=== PATIENT | female | born 1940 | race Caucasian/White ===

== ENCOUNTER → 2019-09-15 | Outpatient (CLI) | payer SELFPAY | PROVIDERS: Family Provider Family Medicine; Visit Provider Family Medicine | DX: M81.0 Age-related osteoporosis without current pathological fracture (principal) | CPT/HCPCS: 77080 ==

== ENCOUNTER 2019-10-23 17:28 | Outpatient (CLI) | payer OTHER, MEDICARE, SELFPAY ==
--- NOTE | 2019-10-23 | XR_ITS ---
WS: [id number] Right ankle, 3 views, 10/23/2019 Clinical Data: ANKLE PAIN RIGHT Comparison: None. Findings: There is an oblique fracture of the distal right fibula. The distal tibia and medial malleolus are in tact. There is soft tissue swelling over the lateral malleolar fracture. There is a small plantar spur and Achilles spur. XR/XR ankle RT min 3V* [id number] Impression: Oblique fracture of distal right fibula with soft tissue swelling over fracture .
== END 2019-10-23 17:29 | disposition home or self-care (01) ==
LOC: RADOUTREAD 10-24 11:46
PROVIDERS: Family Provider Family Medicine; Visit Provider Family Medicine
DX: Z76.89 Persons encountering health services in other specified circumstances (principal)

== ENCOUNTER → 2019-10-29 09:47 | Outpatient (BNVA) | payer MEDICARE, OTHER, SELFPAY | PROVIDERS: Family Provider Family Medicine; Referring Provider Nurse Practitioner Family; Visit Provider Podiatrist Foot & Ankle Surgery | DX: S82.831A Other fracture of upper and lower end of right fibula, initial encounter for closed fracture (principal); X58.XXXA Exposure to other specified factors, initial encounter | CPT/HCPCS: 73630 ==

== ENCOUNTER → 2019-11-12 10:50 | Outpatient (BNVA) | payer MEDICARE, OTHER, SELFPAY | PROVIDERS: Family Provider Family Medicine; Visit Provider Podiatrist Foot & Ankle Surgery | DX: S82.831A Other fracture of upper and lower end of right fibula, initial encounter for closed fracture (principal); X58.XXXA Exposure to other specified factors, initial encounter; S82.891D Other fracture of right lower leg, subsequent encounter for closed fracture with routine healing; X58.XXXD Exposure to other specified factors, subsequent encounter | CPT/HCPCS: 73610; L4361 ==

== ENCOUNTER 2019-11-12 13:40 | Outpatient (CLI) | payer MEDICARE, OTHER, SELFPAY | END 2019-11-12 13:41 | disposition home or self-care (01) | LOC: SPT 13:42 | PROVIDERS: Family Provider Family Medicine; Visit Provider Podiatrist Foot & Ankle Surgery | DX: S82.891D Other fracture of right lower leg, subsequent encounter for closed fracture with routine healing (principal); X58.XXXD Exposure to other specified factors, subsequent encounter | CPT/HCPCS: L4361 ==

== ENCOUNTER 2019-12-03 08:02 | Outpatient (CLI) | payer MEDICARE, OTHER, SELFPAY ==
--- NOTE | 2019-12-03 08:10 | XR_ITS ---
WS: [id number] XR ankle RT min 3V* [id number] REASON FOR EXAM: ankle fracture FINDINGS: Osteopenia changes throughout the ankle are seen. A spiral comminuted fracture of the fibula seen. The tibia appears to be normal. The posterior shelf the tibia was normal. XR/XR ankle RT min 3V* [id number] IMPRESSION: Spiral comminuted fracture of the distal fibula.
== END 2019-12-03 08:03 | disposition home or self-care (01) ==
PROVIDERS: Family Provider Family Medicine; PCP Family Medicine; Visit Provider Podiatrist Foot & Ankle Surgery
DX: S82.831A Other fracture of upper and lower end of right fibula, initial encounter for closed fracture (principal); X58.XXXA Exposure to other specified factors, initial encounter
CPT/HCPCS: 73610

== ENCOUNTER 2019-12-17 12:40 | Outpatient (CLI) | payer MEDICARE, OTHER, SELFPAY ==
--- NOTE | 2019-12-17 12:45 | XR_ITS ---
WS: [id number] ANKLE RIGHT TECHNIQUE: 3 views of the right ankle CLINICAL INFORMATION: fracture COMPARISON: December 03, 2019 FINDINGS: Osteopenia. Soft tissue edema lower leg and ankle. Nondisplaced slightly comminuted fracture involvin g the distal fibula. Slight interval callus formation since the prior examination. Ankle mortise is r elatively well-preserved. Vascular calcification. Tiny plantar and Achilles calcaneal spurs/enthesophytes. XR/XR ankle RT min 3V* [id number] IMPRESSION: 1. Nondisplaced spiral fracture involving the distal fibula with evidence of s light interval callus formation. 2. Ankle mortise is relatively well-preserved.
== END 2019-12-17 12:41 | disposition home or self-care (01) ==
LOC: RADWPI 12:44
PROVIDERS: Family Provider Family Medicine; PCP Family Medicine; Visit Provider Podiatrist Foot & Ankle Surgery
DX: S82.831A Other fracture of upper and lower end of right fibula, initial encounter for closed fracture (principal); X58.XXXA Exposure to other specified factors, initial encounter
CPT/HCPCS: 73610

== ENCOUNTER 2020-02-06 15:20 | Outpatient (CLI) | payer MEDICARE, OTHER, SELFPAY ==
--- NOTE | 2020-02-06 15:26 | XR_ITS ---
WS: [id number] RIGHT ANKLE: 3 VIEW(S) TECHNIQUE: AP, oblique(s) and lateral. HISTORY: right ankle fracture COMPARISON: 12/17/2019 Healing oblique fracture through the distal fibula. No new fracture. No joint effusion or widening of the ankle mortise. No significant degenerative changes at the joint spaces. Diffuse osteopenia with mild soft tissue edema laterally. Extensive vascular calcifications. XR/XR ankle RT min 3V* [id number] IMPRESSION: 1. Healed distal fibular oblique fracture. 2. Soft tissue edema laterally has increased.
== END 2020-02-06 15:21 | disposition home or self-care (01) ==
LOC: RADWPI 15:21
PROVIDERS: Family Provider Family Medicine; PCP Family Medicine; Visit Provider Podiatrist Foot & Ankle Surgery
DX: S82.831A Other fracture of upper and lower end of right fibula, initial encounter for closed fracture (principal); X58.XXXA Exposure to other specified factors, initial encounter
CPT/HCPCS: 73610

== ENCOUNTER 2020-05-15 13:33 | Emergency (ER) | payer MEDICARE, OTHER, SELFPAY ==
[2020-05-15 14:01] VITALS: BP 145/83; PULSE 70; RESP 16; TEMP 36.7; O2SAT 97; BMI 41.1
--- NOTE | 2020-05-15 14:17 | CTR_ITS ---
PROCEDURE INFORMATION: Exam: CT Abdomen And Pelvis Without Contrast Exam date and time: 05/15/2020 2:37 PM Age: 79 years old Clinical indication: Abdominal pain; Other: Bilat; Prior surgery; Surgery date: 6+ months; Surgery type: Appy, gb, hyst; Patient HX: C/O b flank/lbp x 1 week; Additional info: Flank/abdominal pain TECHNIQUE: Imaging protocol: Computed tomography of the abdomen and pelvis without contrast. Radiation optimization: All CT scans at this facility use at least one of these dose optimization techniques: automated exposure control; mA and/or kV adjustment per patient size (includes targeted exams where dose is matched to clinical indication); or iterative reconstruction. COMPARISON: CR Hip 1v RIGHT wwo Pelvis [id number] 04/08/2017 3:42 PM RADIATION DOSE METRICS: Total DLP (mGy-cm): 1816.19 FINDINGS: Lungs: There is bronchiectasis with peribronchial thickening and patchy mucous plugging in the lower lobes. There is scarring with traction bronchiectasis in the right lower lobe. There is patchy opacity in the lower lobes that reflect some pneumonitis in the lung bases right greater than left. Heart: The heart is enlarged. Liver: Unremarkable.No mass. Gallbladder and bile ducts: There has been a cholecystectomy. There is no common bile duct dilation. Pancreas: Normal. No ductal dilation. Spleen: Normal. No splenomegaly. Adrenals: Normal. No mass. Kidneys and ureters: There is punctate nephrolithiasis versus renal vascular calcifications. There is no evidence of hydronephrosis. Stomach and bowel: Mild diverticulosis is present in the distal colon. There is no evidence of colitis/diverticulitis. There is no evidence of colitis/diverticulitis. Appendix: The appendix is not definitively identified. However, there is no CT evidence of a right lower quadrant inflammatory process. Intraperitoneal space: Unremarkable. No free air. No significant fluid collection. Vasculature: The aorta demonstrates mild atherosclerotic calcification. Lymph nodes: Unremarkable.No enlarged lymph nodes. Bladder: The bladder is normal. Reproductive: Unremarkable as visualized. There has been a hysterectomy. Bones/joints: There is diffuse osteopenia with severe degenerative is. Chronic appearing compression fractures T12, L1, L2, L3 and L4 are noted. No acute fracture is identified Soft tissues: Unremarkable. Other findings: There is severe COPD. CT/CT kidney stone [id number] IMPRESSION: 1. There is patchy opacity in the lower lobes that reflect some pneumonitis in the lung bases right greater than left. Severe COPD, bronchiectasis with mucous plugging in basilar scarring is also noted. 2. There is no acute abnormality in abdomen or pelvis. There is diverticulosis without diverticulitis. No bowel thickening or inflammatory change. No hydronephrosis. 3. Osteopenia and multiple chronic compression fractures in the spine are noted. No acute bony abnormality. Radiation Dose CTDIVOL = (mGy): DLP = 1816.19 (mGy-cm)
--- NOTE | 2020-05-15 14:25 | ED_ITS ---
HPI - Back Pain/Injury General: Chief Complaint: Urogenital-Female Stated Complaint: bilateral flank pain/known UTI Dx Time Seen by Provider: 05/15/20 14:09 Source: patient Mode of arrival: ambulatory Limitations: no limitations History of Present Illness: HPI Narrative: Mrs. Middleton is an 79-year-old female who comes in complaining of a week's worth history of low back pain. The patient was seen at [facility] approximately 2 to 3 days ago and was evaluated and diagnosed with UTI. She was placed on Macrobid and Pyridium. The patient states that she is not any better. She continues to have low back and flank pain. Patient states when she moves it makes her symptoms worse and nothing seems to make them better. She denies any fevers, chills, nausea, vomiting or upper abdominal pain. His most of her pain is in the lateral parts of her abdomen and low back. Patient denies any chest pain or shortness of breath but it has caused her to feel nauseated. She unaware of any injuries to her back or flanks. She denies any radiation down her legs. She is not had any loss of bowel or bladder control, numbness in her groin or radiation of her pain down her legs. Patient denies having anything similar to this in the past. She is not tried anything for this other than the Pyridium that was prescribed to her by [facility] and she states that has not helped. She states any type of movement makes her back and flank pain worse. Associated symptoms: Deny abdominal pain, chills, difficulty walking, dysuria, fatigue, fever(s), hematuria, nausea, syncope, urinary urgency or vomiting Review of Systems Const: Denies: fever(s), chills, body aches, fatigue, malaise or diaphoresis Eyes: Denies: change in vision, blurry vision, photophobia, eye discomfort, eye discharge or eye redness ENMT: Denies: throat pain, odynophagia, hoarseness, swelling of lips/tongue, ear or mastoid pain, ear discharge, change in hearing or nasal discharge Card: Denies: chest pain, palpitations, irregular heart rhythm, edema, lightheadedness, syncope, pre-syncope, dyspnea on exertion or orthopnea Resp: Denies: dyspnea, productive cough, non-productive cough, wheezing, hemoptysis or chest congestion GI: Denies: abdominal pain, nausea, vomiting, hematemesis, coffee ground emesis, heartburn, diarrhea, constipation, GI cramping, hematochezia or melena : Reports: flank pain; Denies: dysuria, urinary frequency, urinary urgency or hematuria Musc: Reports: back pain; Denies: neck pain, extremity pain, extremity swelling, joint pain, joint swelling, joint redness, joint warmth or joint stiffness Skin/Breast: Denies: rash, pruritus, erythema or skin tenderness Neuro: Denies: headache(s), numbness in extremities, weakness in extremities, sensory changes, lack of coordination, difficulty walking, dizziness, vertigo, confusion, Slurred speech present or seizure-like activity Ronnie/Lymph: Denies: easy bruising, easy bleeding, petechiae, purpura or enlarged lymph nodes All/Imm: Denies: urticaria, throat swelling, tongue swelling, facial swelling or acute wheezing PFSH ED PFSH: Medical History Depression H/O dysat-[id number] deficiency Hypertension Right fibular fracture Surgical History History of back surgery Hx of appendectomy Hx of arthroscopy of right knee Hx of cataract extraction Hx of cholecystectomy Hx of hysterectomy Hx of tubal ligation Family History Mother Hypertension Brother Hypertension Denies family history of Diabetes CAD (coronary artery disease) Clotting disorder Dementia Hyperlipidemia Psychiatric illness Chronic kidney disease (CKD) Suicide Anesthesia complication Bleeding disorder Family history of premature coronary artery disease Lung disease Cancer Stroke Social History Smoking and tobacco status: never smoked Alcohol intake: never Substance/Drug Use: never Physical Exam Const: COMMON NORMALS: no acute distress, patient oriented x3, no limitations, healthy appearing and well nourished GENERAL APPEARANCE: cooperative, well kempt and well developed HENMT: COMMON NORMALS: normocephalic, atraumatic, external ears normal, EAC's normal and Normal external nose present HEAD & SCALP: normal to inspection, normocephalic and atraumatic FACE & SINUS: normal facial exam and face symmetric NOSE: Normal external nose present and Normal nares present EXTERNAL EAR: Yes external ears normal EXTERNAL AUDITORY CANAL: EAC's normal MOUTH: Normal oral and palatal mucosa present, lip normal and tongue normal Eye: COMMON NORMALS: Equal, round and reactive pupils present and conjunctivae normal GENERAL EYE: appearance normal, both eyes and all related structures ALIGNMENT: Yes alignment normal PERIORBITAL: periorbital findings normal EYELID: eyelids normal CONJUNCTIVA: Yes conjunctivae normal SCLERA: sclerae normal PUPIL: Yes Equal, round and reactive pupils present Neck/C-Spine: COMMON NORMALS: full ROM, no lymphadenopathy, supple, no meningeal signs and no JVD GENERAL: Yes normal visual inspection and Yes trachea midline Chest: COMMONS NORMALS: normal inspection of the chest and normal palpation of entire chest wall Resp: COMMON NORMALS: normal respiratory effort, No retractions, No use of accessory muscles and clear to auscultation bilaterally EFFORT & INSPECTION: Yes able to speak in complete sentences and Yes symmetric chest movement AUSCULTATION: clear to auscultation bilaterally, no crackles, no rales, no rhonchi and no wheezes Cardio: COMMON NORMALS: no JVD, regular rate, regular rhythm, S1 normal heart sound present and S2 normal heart sound present RATE: regular rate RHYTHM: regular rhythm HEART SOUNDS: S1 normal heart sound present, S2 normal heart sound present, no click, no gallops, no murmurs, no rubs and abnormal split S2 GI: COMMON NORMALS: Soft to palpation and No hepatosplenomegaly present PALPATION: Yes Soft to palpation, No Tenderness to palpation present (GI), No Guarding due to palpation present (GI), No Rigid due to palpation, Yes No hepatosplenomegaly present, No Hernia present, No Palpable mass present and No Pulsatile mass present : EXTERNAL FEMALE EXAM: No Hernia present Back/Pelvis: OTHER: Pain on palpation over lumbosacral junction. Minimal if any CVA tenderness present. No midline spinal tenderness. Extremity: COMMON NORMALS: normal to inspection, full ROM, capillary refill normal, no joint enlargement, no clubbing, cyanosis or edema and no calf tenderness Neuro: COMMON NORMALS: patient oriented x3, CN's II-XII intact bilaterally, moves all extremities, no focal motor deficits and no sensory deficits noted MENINGEAL SIGNS: Yes no meningeal signs SPEECH: speech normal Psych: COMMON NORMALS: mental status grossly normal, Normal thought process present, cooperative, normal affect, speech normal and activity/motor behavior normal APPEARANCE: Yes well kempt SPEECH: Yes normal speech THOUGHT PROCESS: Normal thought process present Skin: COMMON NORMALS: no rashes or lesions noted, turgor normal, no jaundice, no petechiae and no mottling GENERAL SKIN EXAM: no rashes or lesions noted and turgor normal Course Vital Signs: Vital signs: Vital Signs Temperature 98.1 F 05/15/20 14:01 Pulse Rate 73 05/15/20 16:30 Respiratory Rate 18 05/15/20 16:30 Blood Pressure 159/81 05/15/20 16:30 Pulse Oximetry 99 05/15/20 16:30 MDM - Back Pain/Injury MDM Narrative: Medical decision making narrative: Mrs. Middleton is a very nice 79-year-old female who comes in complaining low back pain. Low back pain is made worse by movement but she is also recently been diagnosed with a UTI. The patient's urinalysis still shows signs of infection. There is no evidence of acute compression fracture or renal stone or pyelonephritis on her CT. Patient does not appear septic and she is not vomiting. Her abdomen is negative to palpation. The differential for her pain is considerable kidney musculoskeletal pain, renal colic, UTI, pyelonephritis, intra-abdominal pathology among many others. Based upon the work-up that I performed today I think she has a component of musculoskeletal pain along with a UTI. I am going to change her antibiotics to Omnicef and Zithromax. This will also cover for any lung pathology that was discovered by CT. The patient has chronic alpha-1 antitrypsin deficiency so I believe the findings in her lungs are chronic. She denies a cough, increased shortness of breath or fever. Patient understands she is welcome to return here if her symptoms worsen but at this time she is ready for discharge. Lab Data: Attestation: I reviewed the patient's lab results. Labs: Lab Results 05/15/20 05/15/20 05/15/20 Range/Units 14:25 14:40 14:40 WBC 11.3 H (4.0-10.0) 10^3/ uL RBC 4.81 (4.1-5.3) 10^6/u L Hgb 13.9 (11.5-15.3) g/dL Hct 45.0 (37.0-47.0) % MCV 93.6 (81-99) fL MCH 28.9 (28.0-34.0) pg MCHC 30.9 (30.0-36.0) g/dL RDW 13.5 (12.1-15.1) % Plt Count 249 (130-400) 10^3/c mm MPV 9.5 (7.4-10.4) fL Neut % (Auto) 74.2 % Lymph % (Auto) 20.6 % Duval % (Auto) 4.3 % Eos % (Auto) 0.0 % Baso % (Auto) 0.5 % Neut # (Auto) 8.35 H (1.8-7.7) 10^3/u L Lymph # (Auto) 2.3 (0.8-4.8) 10^3/u L Duval # (Auto) 0.5 (0.2-0.9) 10^3/u L Eos # (Auto) 0.0 (0.0-0.8) 10^3/u L Baso # (Auto) 0.1 (0.0-0.1) 10^3/u L Nucleated RBC % (a uto) 0 % Nucleated RBCs # 0.0 /100WBC Sodium 137 (136-145) mmol/L Potassium 4.5 (3.5-5.1) mmol/L Chloride 97 L (98-107) mmol/L Carbon Dioxide 37 H (22-29) mmol/L Anion Gap 7.5 (5-19) BUN 9 (8-23) mg/dL Creatinine 0.8 (0.5-0.9) mg/dL GFR Calculation Not Reportable Glucose 126 H (65-115) mg/dL Calculated Osmolal ity 282 L (285-295) mOsm/k g Calcium 9.6 (8.5-10.5) mg/dL Magnesium 2.1 (1.7-2.3) mg/dL Total Bilirubin 0.3 (0.15-1.2) mg/dL AST 26 (0-32) U/L ALT 25 (0-33) U/L Alkaline Phosphata se 106 H (35-105) IU/L Total Protein 8.0 (6.6-8.7) g/dL Albumin 4.1 (3.5-5.2) g/dL Globulin 3.9 (1.3-4.6) g/dL Lipase 44 (13-60) U/L Urine Color Dark yellow (Yellow) Urine Appearance Clear (CLEAR) Urine pH 8 H (5-7) Ur Specific Gravit y 1.015 (1.005-1.030) Urine Protein 2+ H (Negative) Urine Glucose (UA) Norm (Normal) Urine Ketones Negative (Negative) Urine Blood Neg (Negative) Urine Nitrate Positive H (Negative) Urine Bilirubin Neg (NEGATIVE) Prot Sulfosalicyli c Acd Positive (Negative) Urine Urobilinogen 8 H (Negative) mg/dL Ur Leukocyte Sheridan ase 1+ H (Negative) Urine RBC None (0-2) /hpf Urine WBC 0-4 H (0-5) /hpf Ur Squamous Epith Cells 0-4 H (0-5) Amorphous Sediment 1+ Urine Bacteria 1+ H (NONE) Hyaline Casts 0-4 H Coarse Granular Ca sts 0-4 H /lpf Urine Mucus 1+ Imaging Data^: CT Abd/Pel: Radiologist's impression: [place] [address] CT Scan Report Signed Patient: Blank Middleton Unit #: [id number] : 1940 Age/Sex: 79 / F ADM Date: 05/15/20 Loc: ER Room/Bed: Attending Dr: Ordering Provider/Ordering MD: Jo Knight DO Date of Service: 05/15/20 Procedure(s): CT kidney stone 18238 Accession Number(s): [id number] Report Number: [id number] PROCEDURE INFORMATION: Exam: CT Abdomen And Pelvis Without Contrast Exam date and time: 05/15/2020 2:37 PM Age: 79 years old Clinical indication: Abdominal pain; Other: Bilat; Prior surgery; Surgery date: 6+ months; Surgery type: Appy, gb, hyst; Patient HX: C/O b flank/lbp x 1 week; Additional info: Flank/abdominal pain TECHNIQUE: Imaging protocol: Computed tomography of the abdomen and pelvis without contrast. Radiation optimization: All CT scans at this facility use at least one of these dose optimization techniques: automated exposure control; mA and/or kV adjustment per patient size (includes targeted exams where dose is matched to clinical indication); or iterative reconstruction. COMPARISON: CR Hip 1v RIGHT wwo Pelvis [id number] 04/08/2017 3:42 PM RADIATION DOSE METRICS: Total DLP (mGy-cm): 1816.19 FINDINGS: Lungs: There is bronchiectasis with peribronchial thickening and patchy mucous plugging in the lower lobes. There is scarring with traction bronchiectasis in the right lower lobe. There is patchy opacity in the lower lobes that reflect some pneumonitis in the lung bases right greater than left. Heart: The heart is enlarged. Liver: Unremarkable.No mass. Gallbladder and bile ducts: There has been a cholecystectomy. There is no common bile duct dilation. Pancreas: Normal. No ductal dilation. Spleen: Normal. No splenomegaly. Adrenals: Normal. No mass. Kidneys and ureters: There is punctate nephrolithiasis versus renal vascular calcifications. There is no evidence of hydronephrosis. Stomach and bowel: Mild diverticulosis is present in the distal colon. There is no evidence of colitis/diverticulitis. There is no evidence of colitis/diverticulitis. Appendix: The appendix is not definitively identified. However, there is no CT evidence of a right lower quadrant inflammatory process. Intraperitoneal space: Unremarkable. No free air. No significant fluid collection. Vasculature: The aorta demonstrates mild atherosclerotic calcification. Lymph nodes: Unremarkable.No enlarged lymph nodes. Bladder: The bladder is normal. Reproductive: Unremarkable as visualized. There has been a hysterectomy. Bones/joints: There is diffuse osteopenia with severe degenerative is. Chronic appearing compression fractures T12, L1, L2, L3 and L4 are noted. No acute fracture is identified Soft tissues: Unremarkable. Other findings: There is severe COPD. CT/CT kidney stone [id number] IMPRESSION: 1. There is patchy opacity in the lower lobes that reflect some pneumonitis in the lung bases right greater than left. Severe COPD, bronchiectasis with mucous plugging in basilar scarring is also noted. 2. There is no acute abnormality in abdomen or pelvis. There is diverticulosis without diverticulitis. No bowel thickening or inflammatory change. No hydronephrosis. 3. Osteopenia and multiple chronic compression fractures in the spine are noted. No acute bony abnormality. Radiation Dose CTDIVOL = (mGy): DLP = 1816.19 (mGy-cm) Dictated By: Claudia Maddox Signed By: Claudia Maddox Signed Date/Time: 05/15/201528 DD/ 27 Discharge Plan Discharge Patient Disposition: Home Clinical Impression: Acute UTI Back pain Qualifiers: Back pain location: low back pain Chronicity: acute Back pain laterality: bilateral Sciatica presence: without sciatica Qualified Code(s): M54.5 - Low back pain Condition: Stable Prescriptions: New cyclobenzaprine 10 mg tablet 5 mg PO TID PRN (Reason: muscle spasm) Qty: 30 RF: 0 Zithromax Z-Declan 250 mg tablet See Rx Instructions .ROUTE .COMPLEX Qty: 6 RF: 0 [place] 5-325 mg tablet 1 tab PO Q6H PRN (Reason: pain) 5 Days Qty: 12 RF: 0 cefdinir 300 mg capsule 300 mg PO Q12H 10 Days Qty: 20 RF: 0 No Action benazepril 20 mg PO DAILY RF: 0 prednisone 5 mg tablet 5 mg PO DAILY RF: 0 citalopram [Celexa] 40 mg tablet 20 mg PO DAILY RF: 0 alendronate 70 mg tablet 70 mg PO Q7D RF: 0 oxycodone-acetaminophen 10-325 mg tablet 1 tab PO QID PRN (Reason: Pain) RF: 0 trazodone 100 mg tablet 100 mg PO BEDTIME RF: 0 amlodipine 10 mg tablet 10 mg PO DAILY RF: 0 metoprolol tartrate 50 mg tablet 50 mg PO DAILY RF: 0 Aralast [employer]CH[employer]ICIAN 1,000 mg recon soln See Rx Instructions .ROUTE .COMPLEX RF: 0 nitrofurantoin monohyd/m-cryst 100 mg capsule 100 mg PO BID RF: 0 Discharge Orders: Discharge Order (Routine); Ordered 05/15/20 Ordered By: Jo Knight Referrals: Isaac Rebolledo MD [Primary Care Provider] - 1-3 days Discharge Diet: Advance as tolerated Discharge Activity: Increase activity as tolerated Patient Instructions: Urinary Tract Infection in Women (ED), Back Pain (ED) Activity Restrictions/Additional Instructions: Please return to the ER immediately for any of the signs or symptoms listed on your discharge instruction sheets, worsening/changing of your symptoms, you are not getting better as quickly as expected, or for ANY other cause or concerns. If your symptoms change or worsen at all please return to the ER immediately for recheck. Return to the ER specifically for fever, abdominal pain, blood in your urine, vomiting, weakness, or for any other cause for concern. 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
[2020-05-15 14:36] VITALS: RESP 18
[2020-05-15 14:44] VITALS: RESP 20
[2020-05-15] MEDS: ondansetron 2 mg/ML SDV 2 mL 4 MG IVP (14:44)
[2020-05-15] MEDS: sodium chloride 0.9% 1,000 ML 100 ML IV (14:44)
[2020-05-15] MEDS: morphine 4 mg/mL SDV 1 mL IVP (14:44)
[2020-05-15 14:46] VITALS: O2SAT 95
[2020-05-15 15:04] LABS: Basophils # 0.1 10^3/uL (0.0-0.1); Basophils % 0.5 %; Hemoglobin 13.9 g/dL (11.5-15.3); Lymphocytes # 2.3 10^3/uL (0.8-4.8); Lymphocytes % 20.6 %; Mean Corpuscular HGB Conc 30.9 g/dL (30.0-36.0); Mean Corpuscular Hemoglobin 28.9 pg (28.0-34.0); Mean Corpuscular Volume 93.6 fL (81-99); Mean Platelet Volume 9.5 fL (7.4-10.4); Monocytes # 0.5 10^3/uL (0.2-0.9); Monocytes % 4.3 %; Neutrophils # 8.35 10^3/uL (1.8-7.7); Neutrophils % 74.2 %; Nucleated Red Blood Cells % 0 %; Platelet Count 249 10^3/cmm (130-400); Red Blood Count 4.81 10^6/uL (4.1-5.3); Red Cell Distribution Width 13.5 % (12.1-15.1); White Blood Count 11.3 10^3/uL (4.0-10.0)
[2020-05-15 15:21] LABS: Specific Gravity, Urine 1.015 (1.005-1.030); Urine Appearance Clear (CLEAR); Urine Color Dark Yellow (Yellow); pH Urine 8 (5-7)
[2020-05-15 15:22] LABS: Amorphous Sediment Urine 1+; Bacteria Urine 1+; Bilirubin Urine Neg (NEGATIVE); Blood Urine Neg (Negative); Coarse Granular Casts Urine 0-4 /lpf; Glucose Urine UA Norm (Normal); Hyaline Casts Urine 0-4; Ketones Urine Negative (Negative); Leukocyte Esterase Urine 1+ (Negative); Mucus Urine 1+; Nitrate Urine Positive (Negative); Protein Urine 2+ (Negative); Squamous Epithelial Cell Urine 0-4 (0-5); Urobilinogen Urine 8 mg/dL (Negative); WBC Urine 0-4 /hpf (0-5)
[2020-05-15 15:23] LABS: Add Urine Culture? No
[2020-05-15 15:31] LABS: Alanine Aminotransferase 25 U/L (0-33); Albumin Level 4.1 g/dL (3.5-5.2); Alkaline Phosphatase 106 IU/L (35-105); Anion Gap 7.5 (5-19); Aspartate Amino Transferase 26 U/L (0-32); Blood Urea Nitrogen 9 mg/dL (8-23); Calcium 9.6 mg/dL (8.5-10.5); Carbon Dioxide 37 mmol/L (22-29); Chloride 97 mmol/L (98-107); Globulin 3.9 g/dL (1.3-4.6); Glucose 126 mg/dL (65-115); Lipase 44 U/L (13-60); Magnesium 2.1 mg/dL (1.7-2.3); Osmolality Calculated 282 mOsm/kg (285-295); Potassium 4.5 mmol/L (3.5-5.1); Sodium 137 mmol/L (136-145); Total Bilirubin 0.3 mg/dL (0.15-1.2)
[2020-05-15 15:36] VITALS: BP 159/81; PULSE 73; RESP 18; O2SAT 99
[2020-05-15 15:49] LABS: Sulfosalicylic Acid Urine Positive (Negative)
[2020-05-15] MEDS: cyclobenzaprine 10 mg Tablet PO (15:54)
[2020-05-15] MEDS: HYDROcodone-acetaminophen 5-325 mg Tablet 1 TAB PO (15:54)
[2020-05-15] MEDS: cefTRIAXone 1,000 MG in sodium chloride 0.9% (plus) 50 ML 100 MG IV (15:56)
[2020-05-15] MEDS: hydrocortisone 100 mg/2 mL SDV IVP (16:01)
[2020-05-15] MEDS: ketorolac 30 mg/mL INJ 10 MG IVP (16:01)
[2020-05-15 16:30] VITALS: BP 159/81; PULSE 73; RESP 18; O2SAT 99
== END 2020-05-15 16:30 | disposition home or self-care (01) ==
PROVIDERS: Emergency Provider Emergency Medicine; PCP Family Medicine
DX: N39.0 Urinary tract infection, site not specified (principal); M54.5 Low back pain; I10 Essential (primary) hypertension
CPT/HCPCS: 12345; 74176; 80053; 81001; 83690; 83735; 85025; 87086; 96360; 96361; 96365; 96375; 99283; J0696; J1720; J1885; J2270; J2405; J7030

== ENCOUNTER 2020-05-17 12:47 | Emergency (ER) | payer MEDICARE, OTHER, SELFPAY ==
[2020-05-17 12:54] VITALS: BP 148/99; PULSE 78; RESP 20; TEMP 36.6; O2SAT 97; BMI 42.0
[2020-05-17 13:06] VITALS: BP 148/99; PULSE 75; RESP 18; O2SAT 98
--- NOTE | 2020-05-17 13:10 | XRR_ITS ---
PROCEDURE INFORMATION: Exam: XR Chest, 1 View Exam date and time: 05/17/2020 1:33 PM Age: 79 years old Clinical indication: Cough and dyspnea; Additional info: Dyspnea/cough TECHNIQUE: Imaging protocol: XR of the chest Views: 1 view. COMPARISON: CR Chest 1 view [id number] 07/08/2018 5:32 AM FINDINGS: Lungs: Right lower lobe parenchymal density consistent with pneumonia this finding has increased since prior examination. No consolidation. Low lung volumes seen. Pleural space: Unremarkable. No pleural effusion. No pneumothorax. Heart/Mediastinum: Unremarkable. No cardiomegaly. Bones/joints: Unremarkable. A Port-A-Cath is in place on the right side extending into the proximal SVC . This examination is under penetrated comparing to prior examination. XR/XR chest 1V portable [id number] IMPRESSION: 1. Right lower lobe parenchymal density possible pneumonia 2. Low lung volumes 3. Right central line in good position.
--- NOTE | 2020-05-17 13:24 | XRR_ITS ---
PROCEDURE INFORMATION: Exam: XR Lumbosacral Spine, 2 or 3 Views Exam date and time: 05/17/2020 1:40 PM Age: 79 years old Clinical indication: Low back pain; Additional info: Low back pain, HX of osteoporosis TECHNIQUE: Imaging protocol: XR of the lumbosacral spine, 2 or 3 views. COMPARISON: CR Lumbar Spine 2-3 views* [id number] 04/08/2017 3:42 PM FINDINGS: Vertebrae: There is severe osteopenia and multiple vertebral compression fractures in the lumbar spine. These findings have progressed since prior examination. No subluxations are noted. There is lumbar spine levoscoliosis. 0 core yolk Soft tissues: Unremarkable. XR/XR lumbar spine 2-3V* [id number] IMPRESSION: 1. Severe osteopenia and osteoarthritis. 2. Multiple lumbar spine vertebral compression fractures. 3. Lumbar spine levoscoliosis.
[2020-05-17] MEDS: HYDROcodone-acetaminophen 5-325 mg Tablet 2 TAB PO (13:56)
--- NOTE | 2020-05-17 14:02 | PC.NURSE ---
Read and agree with assessment
[2020-05-17 14:06] VITALS: BP 128/56; PULSE 69; RESP 20; O2SAT 96
[2020-05-17 14:06] LABS: Add Urine Microscopic? NO
[2020-05-17 14:15] LABS: Basophils # 0.1 10^3/uL (0.0-0.1); Basophils % 0.8 %; Hemoglobin 12.8 g/dL (11.5-15.3); Lymphocytes # 2.5 10^3/uL (0.8-4.8); Lymphocytes % 27.2 %; Mean Corpuscular HGB Conc 29.8 g/dL (30.0-36.0); Mean Corpuscular Hemoglobin 28.3 pg (28.0-34.0); Mean Corpuscular Volume 95.1 fL (81-99); Mean Platelet Volume 9.5 fL (7.4-10.4); Monocytes # 0.6 10^3/uL (0.2-0.9); Monocytes % 6.4 %; Neutrophils # 5.97 10^3/uL (1.8-7.7); Neutrophils % 65.3 %; Nucleated Red Blood Cells % 0 %; Platelet Count 225 10^3/cmm (130-400); Red Blood Count 4.52 10^6/uL (4.1-5.3); Red Cell Distribution Width 13.5 % (12.1-15.1); White Blood Count 9.1 10^3/uL (4.0-10.0)
--- NOTE | 2020-05-17 14:19 | W.ED.BACK ---
HPI - Back Pain/Injury General: Chief Complaint: Back Pain/Injury Stated Complaint: ABD PAIN Time Seen by Provider: 05/17/20 13:07 History of Present Illness: HPI Narrative: 79-year-old female presents emergency room with complaint of low back pain. She was seen recently and thought to have a bladder infection and treated for that she has not had any improvement since then she still currently taking Zithromax and cefdinir. Despite this she still having severe back pain. She has a known history of osteoporosis and is on biphosphonate. She cannot recall a particular triggering event she denies any fever sweats or chills. She is not had any worsening respiratory symptoms. MD elicited complaint: back pain Onset (ago): day(s) Timing: constant Severity: severe Similar Symptoms Previously: Yes Quality: sharp Location: lumbar spine Radiation: none Exacerbating factors: movement, sitting upright and walking Relieving factors: none Associated symptoms: Reports arthralgias and difficulty walking; Deny abdominal pain, change in bowel habits, dysuria, fatigue, fecal incontinence, fever(s), hematuria, myalgias, nausea, numbness, syncope, tingling/numbness/burning, urinary frequency, urinary urgency, vomiting or weakness Treatments prior to arrival: NSAIDS and other medications Review of Systems Const: Denies: fever(s) or fatigue ENMT: Denies: throat pain, ear or mastoid pain, nasal discharge or nasal congestion Card: Denies: syncope Resp: Denies: dyspnea, productive cough or non-productive cough GI: Denies: abdominal pain, nausea, vomiting, fecal incontinence or change in bowel habits : Denies: dysuria, urinary urgency or hematuria Skin/Breast: Denies: rash or pruritus Neuro: Reports: difficulty walking PFSH ED PFSH: Medical History (Updated 05/17/20 @ 14:25 by Deejay Chaudhry DO) Depression H/O [id number] deficiency Hypertension Right fibular fracture Surgical History History of back surgery Hx of appendectomy Hx of arthroscopy of right knee Hx of cataract extraction Hx of cholecystectomy Hx of hysterectomy Hx of tubal ligation Family History Mother Hypertension Brother Hypertension Denies family history of Diabetes CAD (coronary artery disease) Clotting disorder Dementia Hyperlipidemia Psychiatric illness Chronic kidney disease (CKD) Suicide Anesthesia complication Bleeding disorder Family history of premature coronary artery disease Lung disease Cancer Stroke Social History Smoking and tobacco status: never smoked Alcohol intake: never Physical Exam Const: COMMON NORMALS: no acute distress GENERAL APPEARANCE: cooperative and comfortable ORIENTATION/CONSCIOUSNESS: Yes awake, Yes oriented to person, Yes oriented to place and Yes oriented to time HENMT: COMMON NORMALS: normocephalic, atraumatic and hearing grossly normal bilaterally HEAD & SCALP: normocephalic and atraumatic Eye: COMMON NORMALS: Equal, round and reactive pupils present, EOMs intact bilaterally, conjunctivae normal and no scleral icterus CONJUNCTIVA: Yes conjunctivae normal PUPIL: Yes Equal, round and reactive pupils present Neck/C-Spine: COMMON NORMALS: no JVD Resp: COMMON NORMALS: normal respiratory effort, No retractions, No use of accessory muscles and clear to auscultation bilaterally AUSCULTATION: clear to auscultation bilaterally Cardio: COMMON NORMALS: no JVD, regular rate, regular rhythm and No murmurs present (Cardio) RATE: regular rate RHYTHM: regular rhythm GI: COMMON NORMALS: Soft to palpation and No hepatosplenomegaly present AUSCULTATION: Yes normoactive bowel sounds PALPATION: Yes Soft to palpation, No Tenderness to palpation present (GI), No Guarding due to palpation present (GI) and Yes No hepatosplenomegaly present Extremity: COMMON NORMALS: normal to inspection, capillary refill normal, no clubbing, cyanosis or edema, no calf tenderness and no pedal edema Neuro: SENSORIUM/ORIENTATION: Yes oriented to person, Yes oriented to place and Yes oriented to time Skin: COMMON NORMALS: no rashes or lesions noted GENERAL SKIN EXAM: no rashes or lesions noted Course Vital Signs: Vital signs: Vital Signs Temperature 97.9 F 05/17/20 12:54 Pulse Rate 70 05/17/20 15:01 Respiratory Rate 20 H 05/17/20 15:01 Blood Pressure 147/88 05/17/20 15:01 Pulse Oximetry 92 05/17/20 15:01 MDM - Back Pain/Injury MDM Narrative: Medical decision making narrative: Significant L1 compression fracture. Have her increase her use of Percocet. Try to get her set up for a kyphoplasty through case management. Discussed the findings with her. Lab Data: Labs: Lab Results 05/17/20 05/17/20 05/17/20 Range/Units 13:53 14:01 14:01 WBC 9.1 (4.0-10.0) 10^3/ uL RBC 4.52 (4.1-5.3) 10^6/u L Hgb 12.8 (11.5-15.3) g/dL Hct 43.0 (37.0-47.0) % MCV 95.1 (81-99) fL MCH 28.3 (28.0-34.0) pg MCHC 29.8 L (30.0-36.0) g/dL RDW 13.5 (12.1-15.1) % Plt Count 225 (130-400) 10^3/c mm MPV 9.5 (7.4-10.4) fL Neut % (Auto) 65.3 % Lymph % (Auto) 27.2 % [place] % (Auto) 6.4 % Eos % (Auto) 0.0 % Baso % (Auto) 0.8 % Neut # (Auto) 5.97 (1.8-7.7) 10^3/u L Lymph # (Auto) 2.5 (0.8-4.8) 10^3/u L [place] # (Auto) 0.6 (0.2-0.9) 10^3/u L Eos # (Auto) 0.0 (0.0-0.8) 10^3/u L Baso # (Auto) 0.1 (0.0-0.1) 10^3/u L Nucleated RBC % (a uto) 0 % Nucleated RBCs # 0.0 /100WBC Sodium 135 L (136-145) mmol/L Potassium 4.7 (3.5-5.1) mmol/L Chloride 98 (98-107) mmol/L Carbon Dioxide 28 (22-29) mmol/L Anion Gap 13.7 (5-19) BUN 12 (8-23) mg/dL Creatinine 0.6 (0.5-0.9) mg/dL GFR Calculation Not Reportable Glucose 145 H (65-115) mg/dL Calculated Osmolal ity 279 L (285-295) mOsm/k g Calcium 8.3 L (8.5-10.5) mg/dL Urine Color Yellow (Yellow) Urine Appearance Clear (CLEAR) Urine pH 5 (5-7) Ur Specific Gravit y 1.015 (1.005-1.030) Urine Protein Neg (Negative) Urine Glucose (UA) Norm (Normal) Urine Ketones Negative (Negative) Urine Blood Neg (Negative) Urine Nitrate Negative (Negative) Urine Bilirubin Neg (NEGATIVE) Urine Urobilinogen Norm (Negative) mg/dL Ur Leukocyte [place] ase Negative (Negative) Discharge Plan Discharge Patient Disposition: Home Clinical Impression: Closed compression fracture of lumbar vertebra Condition: Stable Prescriptions: New hydrocodone-acetaminophen 5-325 mg tablet 1 tab PO Q6H PRN (Reason: pain) Qty: 20 RF: 0 Percocet 10-325 mg tablet 1 tab PO Q4H PRN (Reason: pain) Qty: 20 RF: 0 Discontinued hydrocodone-acetaminophen [[place]] 5-325 mg tablet 1 tab PO Q6H PRN (Reason: pain) 5 Days Qty: 12 RF: 0 No Action benazepril 20 mg PO DAILY RF: 0 prednisone 5 mg tablet 5 mg PO DAILY RF: 0 citalopram [Celexa] 40 mg tablet 20 mg PO DAILY RF: 0 alendronate 70 mg tablet 70 mg PO Q7D RF: 0 oxycodone-acetaminophen 10-325 mg tablet 1 tab PO QID PRN (Reason: Pain) RF: 0 trazodone 100 mg tablet 100 mg PO BEDTIME RF: 0 amlodipine 10 mg tablet 10 mg PO DAILY RF: 0 metoprolol tartrate 50 mg tablet 50 mg PO DAILY RF: 0 Aralast [employer]ER 1,000 mg recon soln See Rx Instructions .ROUTE .COMPLEX RF: 0 cyclobenzaprine 10 mg tablet 5 mg PO TID PRN (Reason: muscle spasm) Qty: 30 RF: 0 azithromycin [Zithromax Z-Declan] 250 mg tablet See Rx Instructions .ROUTE .COMPLEX Qty: 6 RF: 0 cefdinir 300 mg capsule 300 mg PO Q12H 10 Days Qty: 20 RF: 0 Discharge Orders: Discharge Order (Routine); Ordered 05/17/20 Ordered By: Deejay Chaudhry Referrals: Isaac Rebolledo MD [Primary Care Provider] - Discharge Diet: Usual diet Discharge Activity: Limit activity as instructed Discharge Date/Time: 05/17/20 15:02 Coding Level of Care Code ED Interior Design Director for Anag Fwd Exam Comprehensive
[2020-05-17 14:27] LABS: Anion Gap 13.7 (5-19); Blood Urea Nitrogen 12 mg/dL (8-23); Calcium 8.3 mg/dL (8.5-10.5); Carbon Dioxide 28 mmol/L (22-29); Chloride 98 mmol/L (98-107); Glucose 145 mg/dL (65-115); Osmolality Calculated 279 mOsm/kg (285-295); Potassium 4.7 mmol/L (3.5-5.1); Sodium 135 mmol/L (136-145)
[2020-05-17 14:37] LABS: Bilirubin Urine Neg (NEGATIVE); Blood Urine Neg (Negative); Glucose Urine UA Norm (Normal); Ketones Urine Negative (Negative); Leukocyte Esterase Urine Negative (Negative); Nitrate Urine Negative (Negative); Protein Urine Neg (Negative); Specific Gravity, Urine 1.015 (1.005-1.030); Urine Appearance Clear (CLEAR); Urine Color Yellow (Yellow); Urobilinogen Urine Norm (Negative); pH Urine 5 (5-7)
[2020-05-17 15:01] VITALS: BP 147/88; PULSE 70; RESP 20; O2SAT 92
--- NOTE | 2020-05-18 08:55 | DCPLANNER ---
financial center manager had message to refer patient for kyphoplasty. financial center manager spoke with patient and explained that referral would be sent but that it was in [place]. Patient stated that would be fine. financial center manager faxed patients records to the office of Dr. Gooden, will call for appointment information. Clinic will call patient with appointment information.
--- NOTE | 2020-05-28 15:27 | DCPLANNER ---
manager resource called the office of Dr. Gooden to confirm if an appointment had been scheduled for patient. manager resource was told that an appointment had not been scheduled at this time, but that one would be scheduled for June 04, 2020. Clinic would call patient with appointment information.
--- NOTE | 2020-06-16 11:45 | DCPLANNER ---
Patient did attend appointment scheduled for 06.04.[address] Gooden.
== END 2020-05-17 15:02 | disposition home or self-care (01) ==
PROVIDERS: Emergency Provider Family Medicine; PCP Family Medicine
DX: S32.010A Wedge compression fracture of first lumbar vertebra, initial encounter for closed fracture (principal); X58.XXXA Exposure to other specified factors, initial encounter; I10 Essential (primary) hypertension
CPT/HCPCS: 12345; 36415; 71045; 72100; 80048; 81003; 85025; 99281; 99283

== ENCOUNTER 2020-06-02 14:33 | Outpatient (CLI) | payer MEDICARE, OTHER, SELFPAY ==
--- NOTE | 2020-06-02 14:42 | XR_ITS ---
WS: [id number] SCREENING DEXA SCAN [facility] CLINICAL INFORMATION: FRACTURE OSTEOPOROSIS COMPARISON: FINDINGS: The L1-L4 bone mineral density measures 0.912 g/cm2. This corresponds to a T score score of -2.2 and Z score of -1.5. Left femoral neck bone mineral density measures 0.581 g/cm2. This corresponds to a T score of -3.4 an d Z score of -2.1. Right femoral neck bone mineral density measures 0.616 g/cm2. This corresponds to a T score -3.1of an d Z score of -1.8. Mean femoral neck bone mineral density measures 0.598 g/cm2. This corresponds to a T score of -3.2 an d Z score of -2.0. XR/XR DEXA axial skeleton* [id number] IMPRESSION: Osteoporosis. Patient's FRAX calculated 10 year probability for major osteoporotic fracture i s 69.0 % and osteoporotic hip fracture is 59.3%.
== END 2020-06-02 14:34 | disposition home or self-care (01) ==
LOC: RADWPI 14:38
PROVIDERS: Family Provider Family Medicine; PCP Family Medicine; Visit Provider Neurological Surgery
DX: M80.059A Age-related osteoporosis with current pathological fracture, unspecified femur, initial encounter for fracture (principal); X58.XXXA Exposure to other specified factors, initial encounter; M81.0 Age-related osteoporosis without current pathological fracture
CPT/HCPCS: 36415; 77080; 82306

== ENCOUNTER 2020-06-02 15:26 | Outpatient (CLI) | payer MEDICARE, OTHER, SELFPAY ==
[2020-06-02 17:22] LABS: 25 Hydroxy Vitamin D 21 ng/mL (30-100)
== END 2020-06-02 15:27 | disposition home or self-care (01) ==
LOC: LAB 15:29
PROVIDERS: Family Provider Family Medicine; PCP Family Medicine; Visit Provider Neurological Surgery
DX: M81.0 Age-related osteoporosis without current pathological fracture (principal)
CPT/HCPCS: 36415; 82306

== ENCOUNTER 2020-10-26 12:24 | Emergency (ER) | payer MEDICARE, OTHER, SELFPAY ==
[2020-10-26 12:28] VITALS: BP 160/101; PULSE 81; RESP 20; TEMP 36.7; O2SAT 96; BMI 41.5
--- NOTE | 2020-10-26 12:35 | ECG_ITS ---
[facility] Test Date: 2020-10-26 Pat Name: Blank Middleton Department: Room: Gender: Female Game Manager: : 1940 Requested By: Fay Pizarro Order Number: [id number] Lakhwinder MD: Yessica Crocker M.D. Measurements Intervals [place] Rate: 78 P: 85 MT: 184 QRS: 31 QRSD: 81 T: 64 QT: 370 QTc: 423 Interpretive Statements SINUS RHYTHM Compared to ECG 07/07/2018 16:19:11 No significant changes Electronically Signed On 10-26-2020 19:51:16 [employer] MEMBER by Yessica Crocker M.D. [id number]
--- NOTE | 2020-10-26 12:35 | XRR_ITS ---
PROCEDURE INFORMATION: Exam: XR Chest, 1 View Exam date and time: 10/26/2020 12:46 PM Age: 80 years old Clinical indication: Shortness of breath; Patient HX: Hallucinations, pain in back and sides; Additional info: SOB TECHNIQUE: Imaging protocol: XR of the chest Views: 1 view. COMPARISON: CR XR chest 1V portable [id number] 05/17/2020 1:29 PM FINDINGS: Lungs: There is chronic fibrosis in the lung bases especially on the right side. This is similar to old study. The upper lung zones are clear. Pleural spaces: Unremarkable. No pleural effusion. No pneumothorax. Heart/Mediastinum: The heart is normal for the AP projection. The aorta is tortuous. Vasculature: A MediPort catheter projects in satisfactory position with the tip projecting in the SVC. Bones/joints: Unremarkable. XR/XR chest 1V portable [id number] IMPRESSION: 1. 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 2. No definite acute abnormalities are seen.
--- NOTE | 2020-10-26 12:55 | ED_ITS ---
HPI - Psych General: Chief Complaint: Psychiatric Symptoms Stated Complaint: hallucinations, confusion, Time Seen by Provider: 10/26/20 12:25 Source: patient Mode of arrival: ambulatory Limitations: no limitations History of Present Illness: HPI Narrative: 80-year-old female states that overnight she was having some hallucinations and confusion and could not sleep. Patient is concerned about her hallucinations as she was seeing things. She denies any suicidal homicidal ideations. She had some bouts of confusions but here is able answer all my questions appropriately. She knows the exact date her name where she is at all of her medical history. She denies any recent fever. She did have Covid back in May. She denies any shortness of breath. 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 Associated symptoms: Reports auditory hallucinations; Deny depression Review of Systems Const: Denies: fever(s), chills, body aches or change in appetite Eyes: Denies: blurry vision or eye discomfort ENMT: Denies: throat pain or dental pain Card: Denies: chest pain Resp: Denies: dyspnea GI: Denies: abdominal pain, nausea, vomiting or diarrhea : Denies: dysuria Musc: Denies: neck pain or back pain Skin/Breast: Denies: rash Neuro: Denies: headache(s) Psych: Reports: auditory hallucinations; Denies: depression Ronnie/Lymph: Denies: easy bruising All/Imm: Denies: urticaria PFSH ED PFSH: Medical History (Updated 10/26/20 @ 14:39 by Fay Pizarro MD) Depression H/O [id number] deficiency Hypertension Right fibular fracture Surgical History History of back surgery Hx of appendectomy Hx of arthroscopy of right knee Hx of cataract extraction Hx of cholecystectomy Hx of hysterectomy Hx of tubal ligation Family History Mother Hypertension Brother Hypertension Denies family history of Diabetes CAD (coronary artery disease) Clotting disorder Dementia Hyperlipidemia Psychiatric illness Chronic kidney disease (CKD) Suicide Anesthesia complication Bleeding disorder Family history of premature coronary artery disease Lung disease Cancer Stroke Social History Smoking and tobacco status: never smoked Alcohol intake: never Physical Exam Const: COMMON NORMALS: no acute distress, patient oriented x3 and healthy appearing HENMT: COMMON NORMALS: normocephalic and atraumatic HEAD & SCALP: normocephalic and atraumatic Eye: COMMON NORMALS: Equal, round and reactive pupils present and EOMs intact bilaterally PUPIL: Yes Equal, round and reactive pupils present Neck/C-Spine: COMMON NORMALS: full ROM and supple Chest: COMMONS NORMALS: normal inspection of the chest and normal palpation of entire chest wall Resp: COMMON NORMALS: normal respiratory effort, No retractions, No use of accessory muscles and clear to auscultation bilaterally AUSCULTATION: clear to auscultation bilaterally Cardio: COMMON NORMALS: regular rate, regular rhythm and No murmurs present (Cardio) RATE: regular rate RHYTHM: regular rhythm GI: COMMON NORMALS: Normal to inspection, nondistended, normoactive bowel sounds present, Soft to palpation, non-tender and no masses PALPATION: Yes So ft to palpation Extremity: COMMON NORMALS: normal to inspection and full ROM Neuro: COMMON NORMALS: patient oriented x3, moves all extremities and no focal motor deficits Psych: COMMON NORMALS: mental status grossly normal, Normal thought process present and cooperative THOUGHT PROCESS: Normal thought process present Skin: COMMON NORMALS: no rashes or lesions noted and no wounds GENERAL SKIN EXAM: no rashes or lesions noted MDM - Psych MDM Narrative: Medical decision making narrative: 80-year-old who presents here with having some hallucinations confusion last night. Patient's been well- appearing here and has had no hallucinations and answers all my questions appropriately. Patient's work-up here is all normal. I did offer Rachel psychiatric placement but her or daughter felt that that was not necessary. P atient scheduled appointment with Dr. Rebolledo next Sunday. Also will try to get her appointment with Dr. Mcmahan for dementia testing. I informed her if she has any worsening or changes her mind about [facility] psych she is to return immediately. She understands agrees to plan. Lab Data: Labs: Lab Results 10/26/20 10/26/20 10/26/20 Range/Units 12:50 13:05 13:05 WBC Cancelled Corrected WBC Cancelled RBC Cancelled Hgb Cancelled Hct Cancelled MCV Cancelled MCH Cancelled MCHC Cancelled RDW Cancelled Plt Count Cancelled MPV Cancelled Gran % Cancelled Neut % (Auto) Cancelled Lymph % (Auto) Cancelled Love % (Auto) Cancelled Eos % (Auto) Cancelled Baso % (Auto) Cancelled Neut # (Auto) Cancelled Lymph # (Auto) Cancelled Love # (Auto) Cancelled Eos # (Auto) Cancelled Baso # (Auto) Cancelled Absolute Gran (aut o) Cancelled Nucleated RBC % (a uto) Cancelled Nucleated RBCs # Cancelled Specimen Type Sample Site ABG pH (7.35-7.45) ABG pCO2 (35-45) mmHg ABG pO2 (80.0-100.0) mmH g ABG HCO3 (22-26) mmol/L ABG Base Excess (-2.0-2.0) mmol/ L Caleb Test Hematocrit (37-47) % O2 Delivery Device O2 Liters/Min % FiO2 % Relocation Associate ID Sodium Cancelled Potassium Cancelled Chloride Cancelled Carbon Dioxide Cancelled Anion Gap Cancelled BUN Cancelled Creatinine Cancelled GFR Calculation Cancelled Glucose Cancelled POC Glucose 133 H (70-110) mg/dL Calculated Osmolal ity Cancelled Calcium Cancelled Total Bilirubin Cancelled AST Cancelled ALT Cancelled Alkaline Phosphata se Cancelled Ammonia Total Protein Cancelled Albumin Cancelled Globulin Cancelled Urine Color (Yellow) Urine Appearance (CLEAR) Urine pH (5-7) Ur Specific Gravit y (1.005-1.030) Urine Protein (Negative) Urine Glucose (UA) (Normal) Urine Ketones (Negative) Urine Blood (Negative) Urine Nitrate (Negative) Urine Bilirubin (Negative) Urine Urobilinogen (Negative) mg/dL Ur Leukocyte Sheridan ase (Negative) Urine RBC (0-2) /hpf Urine WBC (0-5) /hpf Ur Squamous Epith Cells (0-5) /hpf Amorphous Sediment Urine Bacteria (NONE) /hpf Hyaline Casts /lpf Urine Mucus /hpf Salicylates Cancelled Urine Opiates Scre en (Negative) ng/mL Acetaminophen Cancelled Ur Barbiturates Sc reen (Negative) ng/mL Ur Phencyclidine S crn (Negative) ng/mL Ur Amphetamines Sc reen (Negative) ng/mL U Benzodiazepines Scrn (Negative) ng/mL Urine Cocaine Scre en (Negative) ng/mL U Marijuana (THC) Screen (Negative) ng/mL Ethyl Alcohol Cancelled 10/26/20 10/26/20 10/26/20 Range/Units 13:05 13:05 13:05 WBC Corrected WBC RBC Hgb Hct MCV MCH MCHC RDW Plt Count MPV Gran % Neut % (Auto) Lymph % (Auto) Love % (Auto) Eos % (Auto) Baso % (Auto) Neut # (Auto) Lymph # (Auto) Love # (Auto) Eos # (Auto) Baso # (Auto) Absolute Gran (aut o) Nucleated RBC % (a uto) Nucleated RBCs # Specimen Type Sample Site ABG pH (7.35-7.45) ABG pCO2 (35-45) mmHg ABG pO2 (80.0-100.0) mmH g ABG HCO3 (22-26) mmol/L ABG Base Excess (-2.0-2.0) mmol/ L Caleb Test Hematocrit (37-47) % O2 Delivery Device O2 Liters/Min % FiO2 % Relocation Associate ID Sodium Potassium Chloride Carbon Dioxide Anion Gap BUN Creatinine GFR Calculation Glucose POC Glucose (70-110) mg/dL Calculated Osmolal ity Calcium Total Bilirubin AST ALT Alkaline Phosphata se Ammonia Cancelled Total Protein Albumin Globulin Urine Color Yellow (Yellow) Urine Appearance Clear (CLEAR) Urine pH 5 (5-7) Ur Specific Gravit y 1.010 (1.005-1.030) Urine Protein 1+ H (Negative) Urine Glucose (UA) Norm (Normal) Urine Ketones Negative (Negative) Urine Blood 2+ H (Negative) Urine Nitrate Negative (Negative) Urine Bilirubin 1+ H (Negative) Urine Urobilinogen Norm (Negative) mg/dL Ur Leukocyte Sheridan ase Negative (Negative) Urine RBC 0-4 H (0-2) /hpf Urine WBC 0-4 H (0-5) /hpf Ur Squamous Epith Cells 0-4 H (0-5) /hpf Amorphous Sediment Not Reportable Urine Bacteria 1+ H (NONE) /hpf Hyaline Casts 5-10 H /lpf Urine Mucus 1+ /hpf Salicylates Urine Opiates Scre en Positive H (Negative) ng/mL Acetaminophen Ur Barbiturates Sc reen Negative (Negative) ng/mL Ur Phencyclidine S crn Negative (Negative) ng/mL Ur Amphetamines Sc reen Negative (Negative) ng/mL U Benzodiazepines Scrn Negative (Negative) ng/mL Urine Cocaine Scre en Negative (Negative) ng/mL U Marijuana (THC) Screen Negative (Negative) ng/mL Ethyl Alcohol 10/26/20 10/26/20 10/26/20 Range/Units 13:37 13:37 13:37 WBC 13.2 H Corrected WBC RBC 4.81 Hgb 13.7 Hct 43.2 MCV 89.8 MCH 28.5 MCHC 31.7 RDW 13.1 Plt Count 253 MPV 9.4 Gran % Neut % (Auto) 78.6 Lymph % (Auto) 14.1 Love % (Auto) 6.5 Eos % (Auto) 0.0 Baso % (Auto) 0.5 Neut # (Auto) 10.39 H Lymph # (Auto) 1.9 Love # (Auto) 0.9 Eos # (Auto) 0.0 Baso # (Auto) 0.1 Absolute Gran (aut o) Nucleated RBC % (a uto) 0 Nucleated RBCs # 0.0 Specimen Type Sample Site ABG pH (7.35-7.45) ABG pCO2 (35-45) mmHg ABG pO2 (80.0-100.0) mmH g ABG HCO3 (22-26) mmol/L ABG Base Excess (-2.0-2.0) mmol/ L Caleb Test Hematocrit (37-47) % O2 Delivery Device O2 Liters/Min % FiO2 % Relocation Associate ID Sodium 132 L Potassium 4.5 Chloride 94 L Carbon Dioxide 30 H Anion Gap 12.5 BUN 7 L Creatinine 0.5 GFR Calculation Not Reportable Glucose 114 POC Glucose (70-110) mg/dL Calculated Osmolal ity 273 L Calcium 9.5 Total Bilirubin 0.5 AST 15 ALT 9 Alkaline Phosphata se 86 Ammonia 43 Total Protein 7.3 Albumin 3.9 Globulin 3.4 Urine Color (Yellow) Urine Appearance (CLEAR) Urine pH (5-7) Ur Specific Gravit y (1.005-1.030) Urine Protein (Negative) Urine Glucose (UA) (Normal) Urine Ketones (Negative) Urine Blood (Negative) Urine Nitrate (Negative) Urine Bilirubin (Negative) Urine Urobilinogen (Negative) mg/dL Ur Leukocyte Sheridan ase (Negative) Urine RBC (0-2) /hpf Urine WBC (0-5) /hpf Ur Squamous Epith Cells (0-5) /hpf Amorphous Sediment Urine Bacteria (NONE) /hpf Hyaline Casts /lpf Urine Mucus /hpf Salicylates < 0.3 L Urine Opiates Scre en (Negative) ng/mL Acetaminophen < 5.0 L Ur Barbiturates Sc reen (Negative) ng/mL Ur Phencyclidine S crn (Negative) ng/mL Ur Amphetamines Sc reen (Negative) ng/mL U Benzodiazepines Scrn (Negative) ng/mL Urine Cocaine Scre en (Negative) ng/mL U Marijuana (THC) Screen (Negative) ng/mL Ethyl Alcohol < 10 10/26/20 Range/Units 13:48 WBC Corrected WBC RBC Hgb Hct MCV MCH MCHC RDW Plt Count MPV Gran % Neut % (Auto) Lymph % (Auto) Love % (Auto) Eos % (Auto) Baso % (Auto) Neut # (Auto) Lymph # (Auto) Love # (Auto) Eos # (Auto) Baso # (Auto) Absolute Gran (aut o) Nucleated RBC % (a uto) Nucleated RBCs # Specimen Type Arterial Sample Site Radial, left ABG pH 7.37 (7.35-7.45) ABG pCO2 58.7 H (35-45) mmHg ABG pO2 107.0 H (80.0-100.0) mmH g ABG HCO3 33.9 H (22-26) mmol/L ABG Base Excess 6.6 H (-2.0-2.0) mmol/ L Caleb Test Pos Hematocrit 44.0 (37-47) % O2 Delivery Device Nc O2 Liters/Min 4.0 % FiO2 36.0 % Relocation Associate ID Gd Sodium Potassium Chloride Carbon Dioxide Anion Gap BUN Creatinine GFR Calculation Glucose POC Glucose (70-110) mg/dL Calculated Osmolal ity Calcium Total Bilirubin AST ALT Alkaline Phosphata se Ammonia Total Protein Albumin Globulin Urine Color (Yellow) Urine Appearance (CLEAR) Urine pH (5-7) Ur Specific Gravit y (1.005-1.030) Urine Protein (Negative) Urine Glucose (UA) (Normal) Urine Ketones (Negative) Urine Blood (Negative) Urine Nitrate (Negative) Urine Bilirubin (Negative) Urine Urobilinogen (Negative) mg/dL Ur Leukocyte Sheridan ase (Negative) Urine RBC (0-2) /hpf Urine WBC (0-5) /hpf Ur Squamous Epith Cells (0-5) /hpf Amorphous Sediment Urine Bacteria (NONE) /hpf Hyaline Casts /lpf Urine Mucus /hpf Salicylates Urine Opiates Scre en (Negative) ng/mL Acetaminophen Ur Barbiturates Sc reen (Negative) ng/mL Ur Phencyclidine S crn (Negative) ng/mL Ur Amphetamines Sc reen (Negative) ng/mL U Benzodiazepines Scrn (Negative) ng/mL Urine Cocaine Scre en (Negative) ng/mL U Marijuana (THC) Screen (Negative) ng/mL Ethyl Alcohol Imaging Data^: CT Head: Attestation: I personally reviewed and interpreted this imaging study as follows: Radiologist's impression: [address] [place] [address] CT Scan Report Signed Patient: Blank Middleton Unit #: [id number] : 1940 Age/Sex: 80 / F ADM Date: Loc: ER Room/Bed: Attending Dr: Ordering Provider/Ordering MD: Fay Pizarro MD Date of Service: 10/26/20 Procedure(s): CT head wo con* [id number] Accession Number(s): [id number] Report Number: [id number] WS: [id number] CT HEAD TECHNIQUE: Noncontrast CT of the head obtained from the skullbase to the vertex. CLINICAL INFORMATION: confusion COMPARISON: None. DLP: 2938.[address] scans at [facility] use at least one of these dose optimizati on techniques: automated exposure control; mA and/or kV adjustment per patient size (includes targeted exams where dose is matched to clinical indication); or iterative reconstruction. FINDINGS: No evidence of intracranial hemorrhage or mass effect. Ventricular system and basal cisterns are patent. Moderate small vessel changes with moderate parenchymal volume loss. 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 Intracranial vascular calcification. No extra- axial fluid collections. No evidence of mass or mass effect. Normal olmedo-white differentiation. Paranasal sinuses and mastoid air cells are well aerated. .Normal visualized soft tissues. CT/CT head wo con* [id number] IMPRESSION: 1. No evidence of intracranial hemorrhage or mass effect. 2. Moderate small vessel changes. Moderate parenchymal volume loss. 3. 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 4. No acute intracranial findings. EKG Data^: EKG 1: Attestation: I personally reviewed and interpreted this EKG as follows: EKG interpretation date: 10/26/20 EKG interpretation time: 12:51 Interpretation: nsr hr [address] or t wave abnormalities qrs 81 qtc 404 Discharge Plan Discharge Patient Disposition: Home Clinical Impression: Hallucinations Condition: Stable Prescriptions: No Action benazepril 20 mg PO DAILY@0800 RF: 0 prednisone 5 mg tablet 5 mg PO DAILY RF: 0 citalopram [Celexa] 40 mg tablet 20 mg PO DAILY@0800 RF: 0 alendronate 70 mg tablet 70 mg PO Q7D RF: 0 trazodone 100 mg tablet 100 mg PO BEDTIME RF: 0 amlodipine 10 mg tablet 10 mg PO DAILY@0800 RF: 0 metoprolol tartrate 50 mg tablet 50 mg PO DAILY RF: 0 Aralast AGRONOMIST 1,000 mg recon soln See Rx Instructions .ROUTE .COMPLEX RF: 0 cyclobenzaprine 10 mg tablet 5 mg PO TID PRN (Reason: muscle spasm) Qty: 30 RF: 0 oxycodone-acetaminophen [Percocet] 10-325 mg tablet 1 tab PO Q4H PRN (Reason: pain) Qty: 20 RF: 0 Discharge Orders: Discharge ED (Routine); Ordered 10/26/20 Ordered By: Fay Pizarro Referrals: Isaac Rebolledo MD [Primary Care Provider] - 11/02/20 9:15 am Discharge Diet: Advance as tolerated Discharge Activity: Resume usual activity Patient Instructions: Altered Mental Status (ED) Coding Level of Care Code ED Wedding Makeup Artist for Chg Fwd Exam Comprehensive
[2020-10-26 13:16] LABS: Glucose Point of Care 133 mg/dL (70-110)
[2020-10-26 13:30] LABS: Amphetamines Screen Urine Negative (Negative); Barbiturates Screen Urine Negative (Negative); Benzodiazepines Screen Urine Negative (Negative); Cocaine Screen Urine Negative (Negative); Opiate Screen Urine Positive (Negative); PCP Screen Urine Negative (Negative); THC Screen Urine Negative (Negative)
[2020-10-26 13:31] LABS: Add Urine Microscopic? YES; Bilirubin Urine 1+ (Negative); Blood Urine 2+ (Negative); Glucose Urine UA Norm (Normal); Ketones Urine Negative (Negative); Leukocyte Esterase Urine Negative (Negative); Nitrate Urine Negative (Negative); Protein Urine 1+ (Negative); Urine Appearance Clear (CLEAR); Urine Color Yellow (Yellow); Urobilinogen Urine Norm (Negative); pH Urine 5 (5-7)
[2020-10-26 13:32] LABS: Bacteria Urine 1+ /hpf; Mucus Urine 1+ /hpf
[2020-10-26 13:33] LABS: Add Urine Culture? No; RBC Urine 0-4 /hpf (0-2); Squamous Epithelial Cell Urine 0-4 /hpf (0-5); WBC Urine 0-4 /hpf (0-5)
--- NOTE | 2020-10-26 13:36 | CT_ITS ---
WS: [id number] CT HEAD TECHNIQUE: Noncontrast CT of the head obtained from the skullbase to the vertex. CLINICAL INFORMATION: confusion COMPARISON: None. DLP: 2938.[address] scans at [facility] use at least one of these dose optimization techniques: automat ed exposure control; mA and/or kV adjustment per patient size (includes targeted exams where dose is matched to clinical indication); or iterative reconstruction. FINDINGS: No evidence of intracranial hemorrhage or mass effect. Ventricular system and basal cisterns are saucedo nt. Moderate small vessel changes with moderate parenchymal volume loss. 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 Intracranial vascular calcification. No extra-axial fluid collections. No evidence of mass or mass effect. Normal olmedo-white differentiation. Paranasal sinuses and mastoid air cells are well aerated. .Normal visualized soft tissues. CT/CT head wo con* [id number] IMPRESSION: 1. No evidence of intracranial hemorrhage or mass effect. 2. Moderate small vessel changes. Moderate parenchymal volume loss. 3. 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 4. No acute intracranial findings.
[2020-10-26 13:47] LABS: Basophils # 0.1 10^3/uL (0.0-0.1); Basophils % 0.5 %; Hematocrit 43.2 % (37.0-47.0); Hemoglobin 13.7 g/dL (11.5-15.3); Lymphocytes # 1.9 10^3/uL (0.8-4.8); Lymphocytes % 14.1 %; Mean Corpuscular HGB Conc 31.7 g/dL (30.0-36.0); Mean Corpuscular Hemoglobin 28.5 pg (28.0-34.0); Mean Corpuscular Volume 89.8 fL (81-99); Mean Platelet Volume 9.4 fL (7.4-10.4); Monocytes # 0.9 10^3/uL (0.2-0.9); Monocytes % 6.5 %; Neutrophils # 10.39 10^3/uL (1.8-7.7); Neutrophils % 78.6 %; Nucleated Red Blood Cells % 0 %; Platelet Count 253 10^3/cmm (130-400); Red Blood Count 4.81 10^6/uL (4.1-5.3); Red Cell Distribution Width 13.1 % (12.1-15.1); White Blood Count 13.2 10^3/uL (4.0-10.0)
[2020-10-26 14:04] LABS: Alanine Aminotransferase 9 U/L (0-33); Albumin Level 3.9 g/dL (3.5-5.2); Alkaline Phosphatase 86 IU/L (35-105); Ammonia 43 umol/L (11-51); Anion Gap 12.5 (5-19); Aspartate Amino Transferase 15 U/L (0-32); Blood Urea Nitrogen 7 mg/dL (8-23); Calcium 9.5 mg/dL (8.5-10.5); Carbon Dioxide 30 mmol/L (22-29); Chloride 94 mmol/L (98-107); Globulin 3.4 g/dL (1.3-4.6); Glucose 114 mg/dL (65-115); Osmolality Calculated 273 mOsm/kg (285-295); Potassium 4.5 mmol/L (3.5-5.1); Sodium 132 mmol/L (136-145); Total Bilirubin 0.5 mg/dL (0.15-1.2); Total Protein 7.3 g/dL (6.6-8.7)
[2020-10-26 14:04] LABS: ABG PCO2 58.7 mmHg (35-45); ABG PH Result 7.37 (7.35-7.45); Base Excess ABG 6.6 mmol/L (-2.0-2.0); Blood Gas Allen Test Pos; Blood Gas Operator Identificat GD; Blood Gas Sample Site Radial, left; Blood Gas Sample Type Arterial; HCO3 ABG 33.9 mmol/L (22-26); Oxygen Device NC
[2020-10-26 14:05] LABS: Acetaminophen < 5.0 ug/mL (10-30); Alcohol Level < 10 mg/dL (0-10); Salicylate < 0.3 mg/dL (3-10)
--- NOTE | 2020-10-26 14:53 | DCPLANNER ---
Addendum entered by Evie Saldana 11/09/20 14:25: Patient had a follow up appointment scheduled for 11.02.[address] [place] [facility] [place]. Original Note: industrial relations manager was asked to schedule a follow up appointment for patient with primary care physician. industrial relations manager [place] [facility] a follow up appointment was scheduled for Monday, November 02, 2020 at 9:[address] Rebolledo.
[2020-10-26 15:02] VITALS: BP 134/94; PULSE 90; RESP 14; O2SAT 98
--- NOTE | 2020-10-26 15:17 | DCPLANNER ---
Addendum entered by Evie Saldana 11/09/20 14:21: associate product manager called the office of Dr. Mcmahan to confirm if an appointment had been scheduled for patient. associate product manager spoke with Dyan, was told that a follow up appointment had not been scheduled that the clinic will get it scheduled. Original Note: associate product manager also had message to schedule a follow up appointment for patient with Dr. Mcmahan. associate product manager called the office of Dr. Mcmahan to speak with home health outreach coordinator, Blair, unable to speak with her, mattress spring encaser left a voicemail regarding the referral.
--- NOTE | 2020-11-12 15:24 | DCPLANNER ---
Addendum entered by Evie Saldana 04/12/21 11:32: Patient had a follow up appointment scheduled for 03.15.[address] Mcmahan - patient did attend appointment. Original Note: Patient has a follow up appointment scheduled for Thursday, March 15 at 11:[address] Mcmahan. Clinic will call patient with appointment information.
== END 2020-10-26 15:03 | disposition home or self-care (01) ==
PROVIDERS: Emergency Provider Emergency Medicine; PCP Family Medicine
DX: R44.3 Hallucinations, unspecified (principal); I10 Essential (primary) hypertension
CPT/HCPCS: 12345; 36415; 36416; 36600; 70450; 71045; 80053; 80306; 80307; 81001; 82140; 82803; 82962; 85025; 93005; 99283

== ENCOUNTER 2020-12-01 12:27 | Emergency (ER) | payer MEDICARE, OTHER, SELFPAY ==
[2020-12-01 12:29] VITALS: BP 134/66; PULSE 94; RESP 30; TEMP 37.8; O2SAT 69; BMI 40.6
--- NOTE | 2020-12-01 12:34 | XR_ITS ---
WS: [id number] XR chest 1V portable [id number] REASON FOR EXAM: SOB, fever FINDINGS: The current examination is unchanged compared to the previous study of 10/26/2020. Right chest wall wen motherapy infusion port with catheter through the right subclavian vein with the tip in the superior vena cava. Significant tortuosity of the thoracic aorta without aneurysmal dilatation. Normal heart size. Chronic interstitial changes and fibrotic scarring in both lung bases, most notably the right. No active pulmonary parenchymal or pleural abnormality is identified. XR/XR chest 1V portable [id number] IMPRESSION: No acute chest abnormality.
--- NOTE | 2020-12-01 12:34 | CT_ITS ---
WS: [id number] CT ABDOMEN PELVIS TECHNIQUE: Contrast-enhanced CT of the abdomen and pelvis with coronal and sagittal reformatted image s. CLINICAL INFORMATION: LLQ pain COMPARISON: May 15, 2020 DLP: 1662.[address] scans at [facility] use at least one of these dose optimization techniques: automat ed exposure control; mA and/or kV adjustment per patient size (includes targeted exams where dose is matched to clinical indication); or iterative reconstruction. FINDINGS: Lumbar scoliosis convex left. Chronic biconcave compression fractures L1 and L3 vertebral bodies. L3 compression is unchanged. L1 compression is new from previous but appears chronic. No significant ret ropulsion. Advanced chronic emphysematous changes. Fibrosis lung bases with traction bronchiectasis. Diffuse fat ty infiltration liver. Cholecystectomy. Mild intrahepatic biliary ductal dilatation with prominent co mmon bile duct likely physiologic postcholecystectomy. This is unchanged from previous. Normal portal vein and splenic vein. Fatty atrophy of the pancreas. Normal GE junction. Splenic granulomas. Adrena l glands are normal. Normal caliber abdominal aorta. Mild aortic calcification. Adrenal glands are normal. Normal renal pa renchymal enhancement. No hydronephrosis. Small bilateral renal cysts. No abdominal or pelvic lymphad enopathy. No inguinal lymphadenopathy. A few sigmoid diverticuli. No evidence of acute diverticulitis. No high-grade small or large bowel ob struction. Prior hysterectomy. CT/CT abdomen pelvis w con* [id number] IMPRESSION: 1. Lumbar scoliosis. 2. Diffuse fatty infiltration liver with prior cholecystectomy. Mild intrahepa tic biliary dilatation with dilatation of the common bile duct likely physiolog ic postcholecystectomy. This is unchanged from previous. 3. No hydronephrosis in either kidney. Small bilateral renal cysts. 4. Normal caliber abdominal aorta. 5. Fibrosis and traction bronchiectasis in the lung bases similar to previous. 6. Biconcave chronic appearing L1 and L3 compression fractures. L1 compression is new from previous but has a chronic appearance. No retropulsion. 7. Prior hysterectomy.
--- NOTE | 2020-12-01 12:36 | W.ED.ABDPA2 ---
HPI - Abdominal Pain General: Chief Complaint: Abdominal Pain Stated Complaint: abd pain, feels terrible Time Seen by Provider: 12/01/20 12:33 Source: patient and family Mode of arrival: ambulatory Limitations: no limitations History of Present Illness: HPI narrative: Patient is an 80-year-old female with a history of alpha-1 antitrypsin deficiency and is on oxygen chronically at 5 to 6 L/min. She has been having left lower quadrant pain for about 3 days and it worsened this morning. She also run out of her oxygen at home today. She denies any fever, diarrhea, she had an episode of vomiting 3 days ago but none since. In the ED today she had a low-grade fever of 100.1 orally. Her main complaint is left lower quadrant pain and just feeling unwell. MD elicited complaint: abdominal pain Pertinent past history: none Onset (ago): day(s) (3) Pain Consistency: constant Location: LLQ Severity: severe Quality: stabbing Radiation: none Migration to: no migration Exacerbating factors: nothing Relieving factors: nothing Associated Symptoms: Reports nausea (3 days ago only); Denies anorexia, belching, bloating, change in bowel habits, change in stool character, chills, coffee ground emesis, constipation, GI cramping, diarrhea, dyspepsia, dysuria, excessive flatus, fever(s), heartburn, hematochezia, hematuria, hematemesis, fecal incontinence, loose stools, melena, poor appetite, syncope and vomiting Review of Systems General: Reports: 10 or more systems reviewed and unremarkable except in HPI and below Const: Denies: fever(s) or chills Eyes: Denies: change in vision or blurry vision ENMT: Denies: throat pain, enlarged tonsils, odynophagia, hoarseness, mouth pain or swelling of lips/tongue Card: Denies: syncope Resp: Denies: dyspnea, productive cough or non-productive cough GI: Denies: vomiting, hematemesis, coffee ground emesis, heartburn, diarrhea, constipation, bloating, GI cramping, belching, excessive flatus, fecal incontinence, change in bowel habits, change in stool character, hematochezia or melena : Denies: dysuria or hematuria Musc: Denies: neck pain, back pain or extremity swelling Skin/Breast: Denies: rash, pruritus or erythema Neuro: Denies: headache(s), numbness in extremities or weakness in extremities Endo: Denies: polyuria, polydipsia or tired all the time PFSH ED PFSH: Medical History (Updated 12/01/20 @ 15:35 by Stormy Valdez [place] [facility] [place] Depression H/O [id number]-[id number] deficiency Hypertension Right fibular fracture Surgical History (Reviewed 12/01/20 @ 12:45 by Stormy Valdez MD, [facility] [place] History of back surgery Hx of appendectomy Hx of arthroscopy of right knee Hx of cataract extraction Hx of cholecystectomy Hx of hysterectomy Hx of tubal ligation Family History (Reviewed 12/01/20 @ 12:45 by Stormy Valdez MD, [facility] [place] Mother Hypertension Brother Hypertension Denies family history of Diabetes CAD (coronary artery disease) Clotting disorder Dementia Hyperlipidemia Psychiatric illness Chronic kidney disease (CKD) Suicide Anesthesia complication Bleeding disorder Family history of premature coronary artery disease Lung disease Cancer Stroke Social History (Reviewed 12/01/20 @ 12:45 by Stormy Valdez MD, [facility] [place] Smoking and tobacco status: never smoked Alcohol intake: never Physical Exam Const: COMMON NORMALS: no acute distress, average body habitus, patient oriented x3, no limitations, healthy appearing, alert and well nourished HENMT: COMMON NORMALS: normocephalic, atraumatic and moist oral mucous membranes HEAD & SCALP: normocephalic and atraumatic Neck/C-Spine: COMMON NORMALS: no meningeal signs and no JVD Resp: COMMON NORMALS: normal respiratory effort, No retractions, No use of accessory muscles and percussion normal AUSCULTATION: rales and wheezes PERCUSSION: percussion normal Cardio: COMMON NORMALS: no JVD, regular rate, regular rhythm, S1 normal heart sound present, S2 normal heart sound present, No gallops present (Cardio), No clicks present (Cardio), No murmurs present (Cardio), No rub (Cardio) and Peripheral pulses 2+ throughout RATE: regular rate RHYTHM: regular rhythm HEART SOUNDS: S1 normal heart sound present and S2 normal heart sound present PERIPHERAL PULSES: Peripheral pulses 2+ throughout GI: COMMON NORMALS: Normal to inspection, nondistended, normoactive bowel sounds present, Soft to palpation, non-tender, No hepatosplenomegaly present, no masses and no bruits PALPATION: Yes Soft to palpation and Yes No hepatosplenomegaly present Extremity: COMMON NORMALS: normal to inspection, full ROM, capillary refill normal, no calf tenderness and no pedal edema Neuro: COMMON NORMALS: patient oriented x3 SENSORIUM/ORIENTATION: Yes alert MENINGEAL SIGNS: Yes no meningeal signs Skin: COMMON NORMALS: no rashes or lesions noted, no wounds, turgor normal, no jaundice, no petechiae and no mottling GENERAL SKIN EXAM: no rashes or lesions noted and turgor normal Course Reevaluation(s): Reevaluation #1: Discussed her lab and imaging findings with her. She has significant leukocytosis but she is also on steroids for her lung problems. Chest x-ray and abdomen of her CT and pelvis were unremarkable. She possibly has a urinary tract infection and will give her a dose of ceftriaxone in the emergency department and discharge her home with a prescription for nitrofurantoin. She voiced understanding and is in agreement with the plan. She is to return for any concerns. Time: 15:34 Vital Signs: Vital signs: Vital Signs Temperature 100.1 F H 12/01/20 12:29 Pulse Rate 81 12/01/20 16:47 Respiratory Rate 20 H 12/01/20 16:47 Blood Pressure 121/50 12/01/20 16:47 Pulse Oximetry 95 12/01/20 16:47 MDM - Abdominal Pain MDM Narrative: Medical decision making narrative: 80-year-old female patient who presents with left lower quadrant pain. Evaluation in the emergency department did not reveal any concerning findings but she may have a possible urinary tract infection. She was given a dose of ceftriaxone in the emergency department and discharged home with a prescription for nitrofurantoin. She is to follow-up with her primary care provider. Medical Records: Attestation: I reviewed the patient's medical records. Lab Data: Attestation: I reviewed the patient's lab results. Labs: Lab Results 12/01/20 12/01/20 12/01/20 Range/Units 11:50 12:40 12:40 WBC 28.8 H (4.0-10.0) 10^3/ uL RBC 4.57 (4.1-5.3) 10^6/u L Hgb 13.2 (11.5-15.3) g/dL Hct 41.2 (37.0-47.0) % MCV 90.2 (81-99) fL MCH 28.9 (28.0-34.0) pg MCHC 32.0 (30.0-36.0) g/dL RDW 13.5 (12.1-15.1) % Plt Count 259 (130-400) 10^3/c mm MPV 9.5 (7.4-10.4) fL Neut % (Auto) 83.9 % Lymph % (Auto) 4.5 % [place] % (Auto) 10.5 % Eos % (Auto) 0.0 % Baso % (Auto) 0.4 % Neut # (Auto) 24.19 H (1.8-7.7) 10^3/u L Lymph # (Auto) 1.3 (0.8-4.8) 10^3/u L [place] # (Auto) 3.0 H (0.2-0.9) 10^3/u L Eos # (Auto) 0.0 (0.0-0.8) 10^3/u L Baso # (Auto) 0.1 (0.0-0.1) 10^3/u L Nucleated RBC % (a uto) 0 % Nucleated RBCs # 0.0 /100WBC Sodium 133 L (136-145) mmol/L Potassium 4.2 (3.5-5.1) mmol/L Chloride 93 L (98-107) mmol/L Carbon Dioxide 31 H (22-29) mmol/L Anion Gap 13.2 (5-19) BUN 13 (8-23) mg/dL Creatinine 0.5 (0.5-0.9) mg/dL GFR Calculation Not Reportable Glucose 123 H (65-115) mg/dL Calculated Osmolal ity 277 L (285-295) mOsm/k g Lactate (0.5-2.2) mmol/L Calcium 8.4 L (8.5-10.5) mg/dL Total Bilirubin 0.9 (0.15-1.2) mg/dL AST 22 (0-32) U/L ALT 31 (0-33) U/L Alkaline Phosphata se 103 (35-105) IU/L C-Reactive Protein 38.1 H (0.0-4.9) mg/L Total Protein 7.2 (6.6-8.7) g/dL Albumin 3.8 (3.5-5.2) g/dL Globulin 3.4 (1.3-4.6) g/dL Urine Color (Yellow) Urine Appearance (CLEAR) Urine pH (5-7) Ur Specific Gravit y (1.005-1.030) Urine Protein (Negative) Urine Glucose (UA) (Normal) Urine Ketones (Negative) Urine Blood (Negative) Urine Nitrate (Negative) Urine Bilirubin (Negative) Urine Urobilinogen (Negative) mg/dL Ur Leukocyte Sheridan ase (Negative) Urine RBC (0-2) /hpf Urine WBC (0-5) /hpf Ur Squamous Epith Cells (0-5) /hpf Ur Transition Epit h Cell /hpf Amorphous Sediment Urine Bacteria (NONE) /hpf Influenza Type A A g Negative (Negative) Influenza Type B A g Negative (Negative) 12/01/20 12/01/20 Range/Units 12:40 14:20 WBC (4.0-10.0) 10^3/ uL RBC (4.1-5.3) 10^6/u L Hgb (11.5-15.3) g/dL Hct (37.0-47.0) % MCV (81-99) fL MCH (28.0-34.0) pg MCHC (30.0-36.0) g/dL RDW (12.1-15.1) % Plt Count (130-400) 10^3/c mm MPV (7.4-10.4) fL Neut % (Auto) % Lymph % (Auto) % [place] % (Auto) % Eos % (Auto) % Baso % (Auto) % Neut # (Auto) (1.8-7.7) 10^3/u L Lymph # (Auto) (0.8-4.8) 10^3/u L [place] # (Auto) (0.2-0.9) 10^3/u L Eos # (Auto) (0.0-0.8) 10^3/u L Baso # (Auto) (0.0-0.1) 10^3/u L Nucleated RBC % (a uto) % Nucleated RBCs # /100WBC Sodium (136-145) mmol/L Potassium (3.5-5.1) mmol/L Chloride (98-107) mmol/L Carbon Dioxide (22-29) mmol/L Anion Gap (5-19) BUN (8-23) mg/dL Creatinine (0.5-0.9) mg/dL GFR Calculation Glucose (65-115) mg/dL Calculated Osmolal ity (285-295) mOsm/k g Lactate 1.8 (0.5-2.2) mmol/L Calcium (8.5-10.5) mg/dL Total Bilirubin (0.15-1.2) mg/dL AST (0-32) U/L ALT (0-33) U/L Alkaline Phosphata se (35-105) IU/L C-Reactive Protein (0.0-4.9) mg/L Total Protein (6.6-8.7) g/dL Albumin (3.5-5.2) g/dL Globulin (1.3-4.6) g/dL Urine Color Dark yellow (Yellow) Urine Appearance Hazy A (CLEAR) Urine pH 5 (5-7) Ur Specific Gravit y 1.010 (1.005-1.030) Urine Protein Neg (Negative) Urine Glucose (UA) Norm (Normal) Urine Ketones Negative (Negative) Urine Blood Neg (Negative) Urine Nitrate Negative (Negative) Urine Bilirubin Neg (Negative) Urine Urobilinogen Norm (Negative) mg/dL Ur Leukocyte Sheridan ase Trace H (Negative) Urine RBC 0-4 H (0-2) /hpf Urine WBC 5-10 H (0-5) /hpf Ur Squamous Epith Cells 0-4 H (0-5) /hpf Ur Transition Epit h Cell 0-4 /hpf Amorphous Sediment Not Reportable Urine Bacteria 1+ H (NONE) /hpf Influenza Type A A g (Negative) Influenza Type B A g (Negative) Imaging Data ^: CT Abd/Pel: Attestation: I personally reviewed and interpreted this imaging study as follows: Radiologist's impression: [address] [address] [address] Scan Report Signed Patient: Blank Middleton Jerryjorge #: [id number] : 8At#:[id number] Age/Sex: 80 / FADM Date: 12/01/20 Loc: ERRoom/Bed: Attending Dr: Ordering Provider/Ordering MD: tSormy Valdez MD, [facility] [place] of Service: 12/01/20 Procedure(s): CT abdomen pelvis w con* [id number] Accession Number(s): [id number] Report Number: [id number] WS: [id number] CT ABDOMEN PELVIS TECHNIQUE: Contrast-enhanced CT of the abdomen and pelvis with coronal and sagittal reformatted images. CLINICAL INFORMATION: LLQ pain COMPARISON: May 15, 2020 DLP: 1662.[address] scans at [facility] use at least one of these dose optimization techniques: automated exposure control; mA and/or kV adjustment per patient size (includes targeted exams where dose is matched to clinical indication); or iterative reconstruction. FINDINGS: Lumbar scoliosis convex left. Chronic biconcave compression fractures L1 and L3 vertebral bodies. L3 compression is unchanged. L1 compression is new from previous but appears chronic. No significant retropulsion. Advanced chronic emphysematous changes. Fibrosis lung bases with traction bronchiectasis. Diffuse fatty infiltration liver. Cholecystectomy. Mild intrahepatic biliary ductal dilatation with prominent common bile duct likely physiologic postcholecystectomy. This is unchanged from previous. Normal portal vein and splenic vein. Fatty atrophy of the pancreas. Normal GE junction. Splenic granulomas. Adrenal glands are normal. Normal caliber abdominal aorta. Mild aortic calcification. Adrenal glands are normal. Normal renal parenchymal enhancement. No hydronephrosis. Small bilateral renal cysts. No abdominal or pelvic lymphadenopathy. No inguinal lymphadenopathy. A few sigmoid diverticuli. No evidence of acute diverticulitis. No high-grade small or large bowel obstruction. Prior hysterectomy. CT/CT abdomen pelvis w con* [id number] IMPRESSION: 1. Lumbar scoliosis. 2. Diffuse fatty infiltration liver with prior cholecystectomy. Mild intrahepatic biliary dilatation with dilatation of the common bile duct likely physiologic postcholecystectomy. This is unchanged from previous. 3. No hydronephrosis in either kidney. Small bilateral renal cysts. 4. Normal caliber abdominal aorta. 5. Fibrosis and traction bronchiectasis in the lung bases similar to previous. 6. Biconcave chronic appearing L1 and L3 compression fractures. L1 compression is new from previous but has a chronic appearance. No retropulsion. 7. Prior hysterectomy. Dictated By:Jay James MD Signed By:Jay James MDSigned Date/Time:12/01/20 1357 DD/ 1346 CXR: Attestation: I personally reviewed and interpreted this imaging study as follows: Radiologist's impression: [address] [place] [address] XRay Report Signed Patient: Blank Middleton #: [id number] : 1940[facility]#:[id number] Age/Sex: 80 / FADM Date: 12/01/20 Loc: ERRoom/Bed: Attending Dr: Ordering Provider/Ordering MD: Stormy Valdez MD, [facility] [place] of Service: 12/01/20 Procedure(s): XR chest 1V portable [id number] Accession Number(s): [id number] Report Number: [id number] WS: [id number] XR chest 1V portable [id number] REASON FOR EXAM: SOB, fever FINDINGS: The current examination is unchanged compared to the previous study of 10/26/2020. Right chest wall chemotherapy infusion port with catheter through the right subclavian vein with the tip in the superior vena cava. Significant tortuosity of the thoracic aorta without aneurysmal dilatation. Normal heart size. Chronic interstitial changes and fibrotic scarring in both lung bases, most notably the right. No active pulmonary parenchymal or pleural abnormality is identified. XR/XR chest 1V portable [id number] IMPRESSION: No acute chest abnormality. Dictated By:Ashish Wong Jr, MD Signed By:Ashish Wong Jr MDSigned Date/Time:12/01/20 1304 DD/ 1303 Discharge Plan Discharge Patient Disposition: Home Clinical Impression: UTI (urinary tract infection) Qualifiers: Urinary tract infection type: acute cystitis Hematuria presence: without hematuria Qualified Code(s): N30.00 - Acute cystitis without hematuria Condition: Stable Prescriptions: New nitrofurantoin macrocrystal 100 mg capsule 100 mg PO Q12H 7 Days Qty: 14 RF: 0 Continued prednisone 5 mg tablet 5 mg PO QAM RF: 0 alendronate 70 mg tablet 70 mg PO Q7D RF: 0 trazodone 100 mg tablet 100 mg PO BEDTIME PRN (Reason: Sleep) RF: 0 amlodipine 10 mg tablet 10 mg PO QAM RF: 0 metoprolol tartrate 50 mg tablet 50 mg PO QAM RF: 0 Aralast GRAIN SHIPPER 1,000 mg recon soln See Rx Instructions .ROUTE .COMPLEX RF: 0 citalopram 20 mg tablet 20 mg PO QAM RF: 0 benazepril 20 mg tablet 20 mg PO QAM RF: 0 ProAir HFA 90 mcg/actuation Hfa Aerosol Inhaler 2 puff INHALATION Q4H PRN (Reason: Shortness Of Breath) RF: 0 Symbicort 2 puff inhalation BID RF: 0 Percocet 10-325 mg tablet 1 - 2 tab PO Q6H PRN (Reason: pain) RF: 0 Discharge Orders: Discharge ED (Routine); Ordered 12/01/20 Ordered By: Stormy Valdez Referrals: Isaac Rebolledo MD [Primary Care Provider] - 1-3 days Discharge Diet: Usual diet Discharge Activity: Increase activity as tolerated Patient Instructions: Urinary Tract Infection in Women (ED) Activity Restrictions/Additional Instructions: Return for any new or worsening symptoms. Follow-up with your primary care provider within 3 days. Take the medications as prescribed. Drink plenty of fluids to keep well-hydrated. Coding Level of Care Code ED Computer Methods Analyst for Chg Fwd Exam Comprehensive
[2020-12-01 12:45] VITALS: RESP 21; O2SAT 96
[2020-12-01] MEDS: morphine 4 mg/mL SDV 1 mL IVP (12:45)
[2020-12-01] MEDS: ondansetron 2 mg/ML SDV 2 mL 4 MG IVP (12:45)
[2020-12-01 12:55] LABS: Basophils # 0.1 10^3/uL (0.0-0.1); Basophils % 0.4 %; Hematocrit 41.2 % (37.0-47.0); Hemoglobin 13.2 g/dL (11.5-15.3); Lymphocytes # 1.3 10^3/uL (0.8-4.8); Lymphocytes % 4.5 %; Mean Corpuscular Hemoglobin 28.9 pg (28.0-34.0); Mean Corpuscular Volume 90.2 fL (81-99); Mean Platelet Volume 9.5 fL (7.4-10.4); Monocytes % 10.5 %; Neutrophils # 24.19 10^3/uL (1.8-7.7); Neutrophils % 83.9 %; Nucleated Red Blood Cells % 0 %; Platelet Count 259 10^3/cmm (130-400); Red Blood Count 4.57 10^6/uL (4.1-5.3); Red Cell Distribution Width 13.5 % (12.1-15.1); White Blood Count 28.8 10^3/uL (4.0-10.0)
--- NOTE | 2020-12-01 13:09 | PC.PHAR ---
pts daughter miriam states the pt gets aralast- miriam states the pt gets this infusion at home every 7 days-states the pt can get every 5 days so states the days when the pt does this depends when the nurse gets out to the house-pts daughter states the pt takes prednisone 5mg daily-[facility] 30d/s 04/01/20 for 5mg daily-states the pt hasnt taken alendronate for a month ext med history shows last filled on 11/28/20-states the pt has a symbicort inhaler and is unsure of the mg-[facility] states they havent filled this inhaler for the pt
[2020-12-01 13:11] LABS: Lactate (Lactic Acid level) 1.8 mmol/L (0.5-2.2)
[2020-12-01 13:12] LABS: Alanine Aminotransferase 31 U/L (0-33); Albumin Level 3.8 g/dL (3.5-5.2); Alkaline Phosphatase 103 IU/L (35-105); Anion Gap 13.2 (5-19); Aspartate Amino Transferase 22 U/L (0-32); Blood Urea Nitrogen 13 mg/dL (8-23); C Reactive Protein 38.1 mg/L (0.0-4.9); Calcium 8.4 mg/dL (8.5-10.5); Carbon Dioxide 31 mmol/L (22-29); Chloride 93 mmol/L (98-107); Globulin 3.4 g/dL (1.3-4.6); Glucose 123 mg/dL (65-115); Osmolality Calculated 277 mOsm/kg (285-295); Potassium 4.2 mmol/L (3.5-5.1); Sodium 133 mmol/L (136-145); Total Bilirubin 0.9 mg/dL (0.15-1.2); Total Protein 7.2 g/dL (6.6-8.7)
[2020-12-01 13:25] LABS: Influenza A by IFA Negative (Negative); Influenza B by IFA Negative (Negative)
[2020-12-01] MEDS: iohexol 300 mg/mL 100 mL Btl IV (13:38)
[2020-12-01 14:43] LABS: Add Urine Microscopic? YES; Bilirubin Urine Neg (Negative); Blood Urine Neg (Negative); Glucose Urine UA Norm (Normal); Ketones Urine Negative (Negative); Leukocyte Esterase Urine Trace (Negative); Nitrate Urine Negative (Negative); Protein Urine Neg (Negative); Urine Appearance Hazy (CLEAR); Urine Color Dark Yellow (Yellow); Urobilinogen Urine Norm (Negative); pH Urine 5 (5-7)
[2020-12-01 15:11] LABS: Add Urine Culture? No; Bacteria Urine 1+ /hpf; RBC Urine 0-4 /hpf (0-2); Squamous Epithelial Cell Urine 0-4 /hpf (0-5); Transitional Epi Cells Urine 0-4 /hpf
[2020-12-01] MEDS: cefTRIAXone 1,000 MG in sodium chloride 0.9% (plus) 50 ML 100 MG IV (15:45)
[2020-12-01 16:47] VITALS: BP 121/50; PULSE 81; RESP 20; O2SAT 95
== END 2020-12-01 16:36 | disposition home or self-care (01) ==
PROVIDERS: Emergency Provider Family Medicine; PCP Family Medicine
DX: N30.00 Acute cystitis without hematuria (principal); I10 Essential (primary) hypertension
CPT/HCPCS: 71045; 74177; 80053; 81001; 83605; 85025; 86140; 87804; 96365; 96375; 99284; J0696; J2270; J2405; Q9967

== ENCOUNTER → 2021-03-15 11:01 | Outpatient (BNVA) | payer MEDICARE, OTHER, SELFPAY | PROVIDERS: PCP Family Medicine; Visit Provider Specialist | DX: G31.83 Neurocognitive disorder with Lewy bodies (principal); F02.80 Dementia in other diseases classified elsewhere, unspecified severity, without behavioral disturbance, psychotic disturbance, mood disturbance, and anxiety | CPT/HCPCS: 96116; 99204 ==

== ENCOUNTER 2021-03-23 13:58 | Inpatient (IN) | payer MEDICARE, OTHER, SELFPAY ==
[2021-03-23] VITALS (9 sets, daily range): BP systolic 121–148; BP diastolic 84–97; PULSE 89–100; RESP 16–24; TEMP 36.8; O2SAT 93–97; BMI 42.3
--- NOTE | 2021-03-23 16:31 | XR_ITS ---
WS: [id number] Portable AP upright chest, 03/23/2021 Clinical Data: dyspnea Comparison: Portable chest, 12/01/2020. Findings: There is a minimal patchy opacity in the midportion atelectasis of the right lung which cou ld represent minimal pneumonia and/or atelectasis. No nodules, masses or effusions are seen. The hear t is normal. The pulmonary vascularity is not increased. No pneumothorax is seen. The aortic arch and descending aorta show tortuosity. The right Port-A-Cath remains in position. There is a dextroscolio sis of the thoracic spine. XR/XR chest 1V portable [id number] Impression: 1. Minimal patchy opacity in the midportion of the right lung which could repre sent pneumonia and/or atelectasis. 2. Atherosclerosis.
--- NOTE | 2021-03-23 16:33 | ECG_ITS ---
[facility] Test Date: 2021-03-23 Pat Name: Blank Middleton Department: Room: Gender: Female Senior Microstrategy Developer: eduard : 1940 Requested By: Tom Hyatt Order Number: [id number] Lakhwinder MD: Yessica Crocker M.D. Measurements Intervals [place] Rate: 96 P: 81 MO: 167 QRS: 50 QRSD: 88 T: 67 QT: 330 QTc: 419 Interpretive Statements SINUS RHYTHM WITH OCCASIONAL VENTRICULAR PREMATURE COMPLEXES Compared to ECG 10/26/2020 12:51:18 Ventricular premature complex(es) now present Electronically Signed On 03-23-2021 22:55:07 CDT by Yessica Crocker M.D. [email or web address] Labsbatson children's hospitalReGenX Bioscienceswvumedicine barnesville hospitalYunyou World ([place]) [employer]/store/OM/[id number]
[2021-03-23] MEDS: ipratropium-albuterol 3 mL Neb INHALATION (16:45)
[2021-03-23 16:59] LABS: ABG PH Result 7.34 (7.35-7.45); Arterial Blood Gas Hematocrit 38.9 % (37-47); Base Excess ABG 6.8 mmol/L (-2.0-2.0); Blood Gas Operator Identificat GD; Blood Gas Sample Site Brachial, left; Blood Gas Sample Type Arterial; Carboxyhemoglobin 0.8 %THgb (0.4-20.1); HCO3 ABG 34.7 mmol/L (22-26); HGB O2 Sat 95.3 % (95-100); Methemoglobin 0.4 % (0.4-1.5); Oxygen Device NC; PO2 ABG 75.7 mmHg (80.0-100.0); Total Hemoglobin 12.7 g/dL (12-16)
[2021-03-23 17:00] LABS: ABG PCO2 64.8 mmHg (35-45)
--- NOTE | 2021-03-23 17:05 | PC.PHAR ---
PT STATES HER DAUGHTER TAKES CARE OF HER MEDICATIONS-PTS DAUGHTER CHYRL VERIFIED PTS MEDICATIONS-NOTES ARE MADE IN THE PHARMACY COMMENTS ON RX-PTS DAUGHTER STATES THE PT IS DUE TO GET HER ARALAST ON 03/24/21-STATES THE PT IS ONLY ON THE GALANTAMINE 4MG BID HAS RX ON HOLD FOR 8MG BID AND 12MG BID-PTS DAUGHTER STATES THE PT TAKES 5MG DAILY RX LAST FILLED ON 03/21/21 FOR 20MG DAILY AND DECREASE BY 1/2 TAB EVERY OTHER DAY
[2021-03-23 18:29] LABS: Basophils # 0.1 10^3/uL (0.0-0.1); Basophils % 0.8 %; Eosinophils # 0.2 10^3/uL (0.0-0.8); Eosinophils % 2.1 %; Lymphocytes # 1.7 10^3/uL (0.8-4.8); Lymphocytes % 21.6 %; Mean Corpuscular HGB Conc 29.5 g/dL (30.0-36.0); Mean Corpuscular Hemoglobin 28.3 pg (28.0-34.0); Mean Corpuscular Volume 95.7 fL (81-99); Monocytes # 0.9 10^3/uL (0.2-0.9); Monocytes % 11.4 %; Neutrophils # 5.04 10^3/uL (1.8-7.7); Neutrophils % 63.7 %; Nucleated Red Blood Cells % 0 %; Platelet Count 155 10^3/cmm (130-400); Red Cell Distribution Width 14.1 % (12.1-15.1); White Blood Count 7.9 10^3/uL (4.0-10.0)
--- NOTE | 2021-03-23 18:33 | ECG_ITS ---
[facility] Test Date: 2021-03-23 Pat Name: Blank Middleton Department: Room: Gender: Female [employer]: : 1940 Requested By: Tom Hyatt Order Number: [id number] Lakhwinder MD: Yessica Crocker M.D. Measurements Intervals [place] Rate: 95 P: 96 MO: 176 QRS: 85 QRSD: 76 T: 67 QT: 330 QTc: 416 Interpretive Statements SINUS RHYTHM WITH OCCASIONAL VENTRICULAR PREMATURE COMPLEXES Compared to ECG 03/23/2021 17:55:41 No significant changes Electronically Signed On 03-23-2021 23:04:49 CDT by Yessica Crocker M.D. [email or web address] [facility] south[facility] hospitalBrightSide [email or web address]/store/[id number]
[2021-03-23 18:50] LABS: Lactic Sepsis W/Reflex 1.7 mmol/L (0.5-2.2)
[2021-03-23 18:52] LABS: Troponin(5th) Baseline 18 ng/L (0-10)
[2021-03-23 19:00] LABS: Alanine Aminotransferase 49 U/L (0-33); Albumin Level 3.9 g/dL (3.5-5.2); Alkaline Phosphatase 105 IU/L (35-105); Aspartate Amino Transferase 87 U/L (0-32); Blood Urea Nitrogen 7 mg/dL (8-23); Calcium 8.7 mg/dL (8.5-10.5); Carbon Dioxide 34 mmol/L (22-29); Chloride 96 mmol/L (98-107); Globulin 2.6 g/dL (1.3-4.6); Glucose 115 mg/dL (65-115); NT Pro B Type Natriuretic Pept 509 pg/mL (0-450); Osmolality Calculated 283 mOsm/kg (285-295); Sodium 137 mmol/L (136-145); Total Bilirubin 0.6 mg/dL (0.15-1.2); Total Protein 6.5 g/dL (6.6-8.7)
[2021-03-23 19:01] LABS: Anion Gap 11.2 (5-19); Potassium 4.2 mmol/L (3.5-5.1)
[2021-03-23 19:13] LABS: SARS Covid-2 Antigen Negative (Negative)
--- NOTE | 2021-03-23 19:25 | W.ED.SOB ---
HPI - SOB/Dyspnea General: Chief Complaint: Shortness of Breath/Dyspnea Stated Complaint: on Levaquin/Dr Domingo 1 wk,now coughing up yellow Time Seen by Provider: 03/23/21 16:15 History of Present Illness: HPI Narrative: The patient is an 80-year-old female with past medical history of alpha-1 antitrypsin deficiency with resultant COPD and she is oxygen dependent. She states for the past few days she has had a cough and frequently takes Levaquin including right now her PCP prescribed it for her. On her oxygen she is satting in the low 90s and has increased work of breathing with mild to moderate respiratory distress. She says she has been coughing up yellow phlegm over the same time. Denies chest pain. MD elicited complaint: shortness of breath Pertinent past history: COPD Context: recent illness Severity: moderate Exacerbating factors: exertion and coughing Relieving factors: oxygen and rest Associated symptoms: Reports no associated symptoms; Deny abdominal pain, chest pain, dizziness, extremity pain, orthopnea, palpitations or polyuria Review of Systems General: Reports: 10 or more systems reviewed and unremarkable except in HPI and below Const: Denies: fatigue Eyes: Denies: change in vision, blurry vision or eye redness ENMT: Denies: throat pain, swelling of lips/tongue, ear or mastoid pain or nasal congestion Card: Denies: chest pain, palpitations, irregular heart rhythm, edema, dyspnea on exertion or orthopnea Resp: Reports: dyspnea, productive cough and wheezing GI: Denies: abdominal pain, diarrhea or GI cramping : Denies: flank pain, difficulty voiding, urinary frequency or urinary urgency Musc: Denies: neck pain, back pain, extremity pain, joint pain, joint redness, limited range of motion or muscle weakness Skin/Breast: Denies: rash, pruritus, erythema, skin pain or skin tenderness Neuro: Denies: headache(s), numbness in extremities, weakness in extremities, sensory changes, difficulty walking, dizziness, confusion or Slurred speech present Psych: Denies: anxiety or depression Endo: Denies: polyuria All/Imm: Denies: urticaria, throat swelling or tongue swelling PFSH ED PFSH: Medical History (Updated 03/23/21 @ 22:50 by Tom Hyatt MD) [id number] deficiency COPD (chronic obstructive pulmonary disease) Depression Diastolic CHF History of COVID-19 (~11/2019) Hypertension Lewy body dementia Obesity Osteoporosis Port-A-Cath in place Right fibular fracture Sleep apnea Surgical History (Updated 03/23/21 @ 21:26 by Adilia Cuevas MD) History of back surgery History of tracheostomy Hx of appendectomy Hx of arthroscopy of right knee Hx of cataract extraction Hx of cholecystectomy Hx of hysterectomy Hx of tubal ligation Family History (Updated 03/23/21 @ 21:20 by Adilia Cuevas MD) Mother Hypertension Brother Hypertension Other FHx: alpha 1 antitrypsin deficiency Denies family history of Diabetes CAD (coronary artery disease) Clotting disorder Dementia Hyperlipidemia Psychiatric illness Chronic kidney disease (CKD) Suicide Anesthesia complication Bleeding disorder Family history of premature coronary artery disease Lung disease Cancer Stroke Social History (Updated 03/23/21 @ 21:20 by Adilia Cuevas MD) Smoking and tobacco status: never smoked Alcohol intake: never Substance/Drug Use: never Household members: family History of recent travel: No Physical Exam Const: COMMON NORMALS: no acute distress, average body habitus, patient oriented x3, no limitations, healthy appearing, alert and well nourished GENERAL APPEARANCE: cooperative, comfortable, well kempt and well developed ORIENTATION/CONSCIOUSNESS: Yes awake, Yes oriented to person, Yes oriented to place and Yes oriented to time HENMT: COMMON NORMALS: normocephalic, external ears normal and Normal external nose present HEAD & SCALP: normal to inspection and normocephalic NOSE: Normal external nose present EXTERNAL EAR: Yes external ears normal MOUTH: Normal oral and palatal mucosa present THROAT: posterior oropharynx normal Eye: COMMON NORMALS: Equal, round and reactive pupils present and EOMs intact bilaterally GENERAL EYE: appearance normal, both eyes and all related structures PUPIL: Yes Equal, round and reactive pupils present Neck/C-Spine: COMMON NORMALS: full ROM, no lymphadenopathy, no meningeal signs and no JVD GENERAL: Yes normal visual inspection Lymph: LYMPHATIC: no lymphadenopathy noted Chest: COMMONS NORMALS: normal inspection of the chest and normal palpation of entire chest wall Resp: COMMON NORMALS: normal respiratory effort, No retractions, No use of accessory muscles and percussion normal EFFORT & INSPECTION: Yes able to speak in complete sentences, Yes tachypneic, Yes respiratory distress (Mild to moderate.) and Yes uses accessory muscles AUSCULTATION: wheezes and diminished lung sounds PERCUSSION: percussion normal Cardio: COMMON NORMALS: no JVD, regular rate, regular rhythm, S1 normal heart sound present, S2 normal heart sound present and Peripheral pulses 2+ throughout RATE: regular rate RHYTHM: regular rhythm HEART SOUNDS: S1 normal heart sound present and S2 normal heart sound present PERIPHERAL PULSES: Peripheral pulses 2+ throughout GI: COMMON NORMALS: Normal to inspection, nondistended, normoactive bowel sounds present, Soft to palpation, non-tender and no masses INSPECTION: Yes normal to inspection PALPATION: Yes Soft to palpation : COMMON NORMALS: Yes no CVA tenderness BLADDER/KIDNEY EXAM: Yes no CVA tenderness Back/Pelvis: COMMON NORMALS: no CVA tenderness, thoracic and lumbar spine normal to inspection, no thoracic nor lumbar tenderness and thoraco-lumbar ROM normal Extremity: COMMON NORMALS: normal to inspection, full ROM, capillary refill normal, no joint enlargement and no pedal edema GENERAL: Yes normal exam except as noted Neuro: COMMON NORMALS: patient oriented x3, CN's II-XII intact bilaterally, moves all extremities, no focal motor deficits, no sensory deficits noted and gait normal SENSORIUM/ORIENTATION: Yes alert, Yes oriented to person, Yes oriented to place and Yes oriented to time MENINGEAL SIGNS: Yes no meningeal signs Psych: COMMON NORMALS: mental status grossly normal, Normal thought process present, cooperative, normal affect and speech normal APPEARANCE: Yes well kempt ATTITUDE: Yes calm SPEECH: Yes normal speech THOUGHT PROCESS: Normal thought process present Skin: COMMON NORMALS: no rashes or lesions noted GENERAL SKIN EXAM: no rashes or lesions noted Course Vital Signs: Vital signs: Vital Signs Temperature 98.3 F 03/23/21 15:02 Pulse Rate 97 03/23/21 20:43 Respiratory Rate 20 H 03/23/21 21:51 Blood Pressure 121/97 03/23/21 20:43 Pulse Oximetry 96 03/23/21 21:51 MDM - SOB/Dyspnea MDM Narrative: Medical decision making narrative: The patient is an 80-year-old female with alpha 1 antitrypsin and resultant COPD. She is currently taking levofloxacin orally for this for the past few days short of breath. She gets exacerbations often. She says she has been coughing up yellow phlegm as well and she is in mild to moderate respiratory distress satting in the low 90s on increased oxygen. Called for BiPAP after her CO2 was elevated to 64. pH 7.34. Bicarb 34.7. She is breathing much better on the BiPAP and resting comfortably now. Started on azithromycin and ceftriaxone as well as given Solu-Medrol. Discussed with Dr. Cuevas who accepts for admission. Lab Data: Labs: Lab Results 03/23/21 03/23/21 03/23/21 Range/Units 16:40 18:10 18:10 WBC 7.9 (4.0-10.0) 10^3/ uL RBC 4.60 (4.1-5.3) 10^6/u L Hgb 13.0 (11.5-15.3) g/dL Hct 44.0 (37.0-47.0) % MCV 95.7 (81-99) fL MCH 28.3 (28.0-34.0) pg MCHC 29.5 L (30.0-36.0) g/dL RDW 14.1 (12.1-15.1) % Plt Count 155 (130-400) 10^3/c mm MPV 10.0 (7.4-10.4) fL Neut % (Auto) 63.7 % Lymph % (Auto) 21.6 % [place] % (Auto) 11.4 % Eos % (Auto) 2.1 % Baso % (Auto) 0.8 % Neut # (Auto) 5.04 (1.8-7.7) 10^3/u L Lymph # (Auto) 1.7 (0.8-4.8) 10^3/u L [place] # (Auto) 0.9 (0.2-0.9) 10^3/u L Eos # (Auto) 0.2 (0.0-0.8) 10^3/u L Baso # (Auto) 0.1 (0.0-0.1) 10^3/u L Nucleated RBC % (a uto) 0 % Nucleated RBCs # 0.0 /100WBC Specimen Type Arterial Sample Site Brachial, left ABG pH 7.34 L (7.35-7.45) ABG pCO2 64.8 H* (35-45) mmHg ABG pO2 75.7 L (80.0-100.0) mmH g ABG HCO3 34.7 H (22-26) mmol/L ABG Base Excess 6.8 H (-2.0-2.0) mmol/ L Caleb Test N/a Hematocrit 38.9 (37-47) % Hgb O2 Saturation 95.3 (95-100) % Carboxyhemoglobin 0.8 (0.4-20.1) %THgb Methemoglobin 0.4 (0.4-1.5) % Total Hemoglobin 12.7 (12-16) g/dL O2 Delivery Device Nc O2 Liters/Min 5.0 % FiO2 40.0 % Crew Scheduler ID Gd Sodium 137 (136-145) mmol/L Potassium 4.2 (3.5-5.1) mmol/L Chloride 96 L (98-107) mmol/L Carbon Dioxide 34 H (22-29) mmol/L Anion Gap 11.2 (5-19) BUN 7 L (8-23) mg/dL Creatinine 0.4 L (0.5-0.9) mg/dL GFR Calculation Not Reportable Glucose 115 (65-115) mg/dL Calculated Osmolal ity 283 L (285-295) mOsm/k g Lactic Acid (0.5-2.2) mmol/L Calcium 8.7 (8.5-10.5) mg/dL Total Bilirubin 0.6 (0.15-1.2) mg/dL AST 87 H (0-32) U/L ALT 49 H (0-33) U/L Alkaline Phosphata se 105 (35-105) IU/L Troponin T Baselin e (0-10) ng/L Troponin T 120 Min [place] (0-10) ng/L Delta Troponin T (0-10) ABS# NT-Pro-B Natriuret Pep 509 H (0-450) pg/mL Total Protein 6.5 L (6.6-8.7) g/dL Albumin 3.9 (3.5-5.2) g/dL Globulin 2.6 (1.3-4.6) g/dL Urine Color (Yellow) Urine Appearance (CLEAR) Urine pH (5-7) Ur Specific Gravit y (1.005-1.030) Urine Protein (Negative) Urine Glucose (UA) (Normal) Urine Ketones (Negative) Urine Blood (Negative) Urine Nitrate (Negative) Urine Bilirubin (Negative) Urine Urobilinogen (Negative) mg/dL Ur Leukocyte [place] ase (Negative) SARS-CoV-2 Ag (Rap id) (Negative) 03/23/21 03/23/21 03/23/21 Range/Units 18:10 18:10 18:20 WBC (4.0-10.0) 10^3/ uL RBC (4.1-5.3) 10^6/u L Hgb (11.5-15.3) g/dL Hct (37.0-47.0) % MCV (81-99) fL MCH (28.0-34.0) pg MCHC (30.0-36.0) g/dL RDW (12.1-15.1) % Plt Count (130-400) 10^3/c mm MPV (7.4-10.4) fL Neut % (Auto) % Lymph % (Auto) % [place] % (Auto) % Eos % (Auto) % Baso % (Auto) % Neut # (Auto) (1.8-7.7) 10^3/u L Lymph # (Auto) (0.8-4.8) 10^3/u L [place] # (Auto) (0.2-0.9) 10^3/u L Eos # (Auto) (0.0-0.8) 10^3/u L Baso # (Auto) (0.0-0.1) 10^3/u L Nucleated RBC % (a uto) % Nucleated RBCs # /100WBC Specimen Type Sample Site ABG pH (7.35-7.45) ABG pCO2 (35-45) mmHg ABG pO2 (80.0-100.0) mmH g ABG HCO3 (22-26) mmol/L ABG Base Excess (-2.0-2.0) mmol/ L Caleb Test Hematocrit (37-47) % Hgb O2 Saturation (95-100) % Carboxyhemoglobin (0.4-20.1) %THgb Methemoglobin (0.4-1.5) % Total Hemoglobin (12-16) g/dL O2 Delivery Device O2 Liters/Min % FiO2 % Crew Scheduler ID Sodium (136-145) mmol/L Potassium (3.5-5.1) mmol/L Chloride (98-107) mmol/L Carbon Dioxide (22-29) mmol/L Anion Gap (5-19) BUN (8-23) mg/dL Creatinine (0.5-0.9) mg/dL GFR Calculation Glucose (65-115) mg/dL Calculated Osmolal ity (285-295) mOsm/k g Lactic Acid 1.7 (0.5-2.2) mmol/L Calcium (8.5-10.5) mg/dL Total Bilirubin (0.15-1.2) mg/dL AST (0-32) U/L ALT (0-33) U/L Alkaline Phosphata se (35-105) IU/L Troponin T Baselin e 18 H (0-10) ng/L Troponin T 120 Min [place] (0-10) ng/L Delta Troponin T (0-10) ABS# NT-Pro-B Natriuret Pep (0-450) pg/mL Total Protein (6.6-8.7) g/dL Albumin (3.5-5.2) g/dL Globulin (1.3-4.6) g/dL Urine Color (Yellow) Urine Appearance (CLEAR) Urine pH (5-7) Ur Specific Gravit y (1.005-1.030) Urine Protein (Negative) Urine Glucose (UA) (Normal) Urine Ketones (Negative) Urine Blood (Negative) Urine Nitrate (Negative) Urine Bilirubin (Negative) Urine Urobilinogen (Negative) mg/dL Ur Leukocyte [place] ase (Negative) SARS-CoV-2 Ag (Rap id) Negative (Negative) 03/23/21 03/23/21 Range/Units 20:05 20:20 WBC (4.0-10.0) 10^3/ uL RBC (4.1-5.3) 10^6/u L Hgb (11.5-15.3) g/dL Hct (37.0-47.0) % MCV (81-99) fL MCH (28.0-34.0) pg MCHC (30.0-36.0) g/dL RDW (12.1-15.1) % Plt Count (130-400) 10^3/c mm MPV (7.4-10.4) fL Neut % (Auto) % Lymph % (Auto) % [place] % (Auto) % Eos % (Auto) % Baso % (Auto) % Neut # (Auto) (1.8-7.7) 10^3/u L Lymph # (Auto) (0.8-4.8) 10^3/u L [place] # (Auto) (0.2-0.9) 10^3/u L Eos # (Auto) (0.0-0.8) 10^3/u L Baso # (Auto) (0.0-0.1) 10^3/u L Nucleated RBC % (a uto) % Nucleated RBCs # /100WBC Specimen Type Sample Site ABG pH (7.35-7.45) ABG pCO2 (35-45) mmHg ABG pO2 (80.0-100.0) mmH g ABG HCO3 (22-26) mmol/L ABG Base Excess (-2.0-2.0) mmol/ L Caleb Test Hematocrit (37-47) % Hgb O2 Saturation (95-100) % Carboxyhemoglobin (0.4-20.1) %THgb Methemoglobin (0.4-1.5) % Total Hemoglobin (12-16) g/dL O2 Delivery Device O2 Liters/Min % FiO2 % Crew Scheduler ID Sodium (136-145) mmol/L Potassium (3.5-5.1) mmol/L Chloride (98-107) mmol/L Carbon Dioxide (22-29) mmol/L Anion Gap (5-19) BUN (8-23) mg/dL Creatinine (0.5-0.9) mg/dL GFR Calculation Glucose (65-115) mg/dL Calculated Osmolal ity (285-295) mOsm/k g Lactic Acid (0.5-2.2) mmol/L Calcium (8.5-10.5) mg/dL Total Bilirubin (0.15-1.2) mg/dL AST (0-32) U/L ALT (0-33) U/L Alkaline Phosphata se (35-105) IU/L Troponin T Baselin e (0-10) ng/L Troponin T 120 Min [place] 14.81 H (0-10) ng/L Delta Troponin T -3.19 L (0-10) ABS# NT-Pro-B Natriuret Pep (0-450) pg/mL Total Protein (6.6-8.7) g/dL Albumin (3.5-5.2) g/dL Globulin (1.3-4.6) g/dL Urine Color Yellow (Yellow) Urine Appearance Clear (CLEAR) Urine pH 5 (5-7) Ur Specific Gravit y 1.020 (1.005-1.030) Urine Protein Neg (Negative) Urine Glucose (UA) Norm (Normal) Urine Ketones Negative (Negative) Urine Blood Neg (Negative) Urine Nitrate Negative (Negative) Urine Bilirubin Neg (Negative) Urine Urobilinogen Norm (Negative) mg/dL Ur Leukocyte [place] ase Negative (Negative) SARS-CoV-2 Ag (Rap id) (Negative) Discharge Plan Discharge Patient Disposition: Admitted As Inpatient Admit Provider: Adilia Cuevas Clinical Impression: Community acquired pneumonia, Acute exacerbation of chronic obstructive pulmonary disease Condition: Stable Coding Level of Care Code ED Transformer Assembler for Anag Fwd Exam Comprehensive
[2021-03-23] MEDS: cefTRIAXone 1,000 MG in sodium chloride 0.9% (plus) 50 ML 100 MG IV (20:11)
[2021-03-23 20:18] LABS: Add Urine Microscopic? NO; Charge for UA Resulting for Rev
[2021-03-23] MEDS: azithromycin 500 MG in sodium chloride 0.9% 250 ML 250 MG IV (20:30)
[2021-03-23 20:37] LABS: Bilirubin Urine Neg (Negative); Blood Urine Neg (Negative); Glucose Urine UA Norm (Normal); Ketones Urine Negative (Negative); Leukocyte Esterase Urine Negative (Negative); Nitrate Urine Negative (Negative); Protein Urine Neg (Negative); Urine Appearance Clear (CLEAR); Urine Color Yellow (Yellow); Urobilinogen Urine Norm (Negative); pH Urine 5 (5-7)
[2021-03-23 20:56] LABS: Troponin 5 2HR 14.81 ng/L (0-10); Troponin 5 2HR Delta -3.19 ABS# (0-10)
--- NOTE | 2021-03-23 21:19 | PM.HP ---
Providers/Chief Complaint Admitting Physician: Adilia Cuevas MD Primary Care Provider: Isaac Rebolledo MD Chief Complaint: on Levaquin/Dr Domingo 1 wk,now coughing up yellow History of Present Illness Blank Middleton is a 80 year old female who presented to the emergency room with chief complaint of increasing sputum production and difficulty breathing. Symptoms have been going on for about a week. She follows with Dr. Domingo for alpha-1 antitrypsin deficiency/COPD. She gets Aralast weekly on . Chronically on albuterol, Symbicort and takes guaifenesin if needed. Sputum has been yellowish-brown in color. No blood has been noted. She denies any fever. She was prescribed Levaquin last week and has 3 doses left. Has not really seen a change since then. She is chronically on prednisone at 5 mg a day. No increased dose of steroids. She does not do well with higher doses of steroids and tries to avoid it if she can. Has not had significant headaches or facial pain. Not really having much in the way of nasal drainage. No sore throat. No loss of taste/smell. No nausea or vomiting. No diarrhea or abdominal pain. Denied any urinary symptoms. She is chronically on 6 L of oxygen by nasal cannula and wears a BiPAP every night. She has had to increase the oxygen to 8 L and has woken up at night short of breath a few times. She is getting more short of breath with exertion. Denied any new edema. Her son encouraged her to come to the emergency room today for evaluation. ABG showed respiratory acidosis with hypercapnia more pronounced than it has been in some time for her. She was placed on BiPAP, given a dose of Solu-Medrol and breathing treatment. Chest x-ray showed patchy opacity in the right midlung described by radiology as could represent pneumonia and/or atelectasis . She was covered with Rocephin and azithromycin and request was made for admission. Patient states that she has not had this much trouble breathing for some time. Her last hospitalization was back in 2018. She has previously had prolonged intubation necessitating tracheostomy that was later removed. In talking with her she had Covid in November of last year. Did not require hospitalization at that time. She is not vaccinated. She at first denied any contact with anybody who has had Covid but on further specific questioning, grandson does have Covid currently, as well as a another family member. The grandson himself has not seen Mrs. Fonseca, but several family members who have been around him have been around her. Rapid Covid antigen was negative. She did have some mild elevation in transaminases, a baseline troponin of 18 without acute EKG changes, a proBNP of 509. No history of coronary artery disease though does have some records indicating a history of diastolic CHF. Review of Systems Const: Reports: fatigue and malaise; Denies: fever(s), chills or change in weight Eyes: Denies: change in vision ENMT: Denies: throat pain, oral sores, nasal congestion or sinus pain Card: Reports: swelling of feet/ankles, dyspnea on exertion and orthopnea; Denies: chest pain Resp: Reports: dyspnea, productive cough, non-productive cough, wheezing, change in phlegm color and chest congestion; Denies: pain on inspiration or hemoptysis GI: Denies: abdominal pain, nausea, vomiting, diarrhea, constipation, hematochezia or melena : Denies: difficulty voiding or hematuria Musc: Reports: other (Does not walk much at baseline anymore) Skin/Breast: Reports: dry skin (With some flaking skin particularly around the feet); Denies: rash, pruritus or sores Neuro: Denies: headache(s), numbness in extremities, weakness in extremities, dizziness or difficulty communicating thoughts Psych: Denies: anxiety or depression Ronnie/Lymph: Denies: easy bruising or easy bleeding Medications/Allergies Home Medications Medication Instructions Recorded Confirmed Last Taken Type prednisone 5 mg tablet 5 mg PO QAM 10/29/19 03/23/21 03/23/21 History alendronate 70 mg PO Q7D 05/15/20 03/23/21 05/13/20 History amlodipine 10 mg PO QAM 05/15/20 03/23/21 12/01/20 10:30 History metoprolol tartrate 50 mg PO QAM 05/15/20 03/23/21 12/01/20 10:30 History trazodone 100 mg PO BEDTIME PRN 05/15/20 03/23/21 05/16/20 History albuterol sulfate [ProAir HFA] 2 puff INHALATION Q4H PRN 12/01/20 03/23/21 03/23/21 History benazepril 20 mg PO QAM 12/01/20 03/23/21 12/01/20 10:30 History oxycodone-acetaminophen [Percocet] 1 - 2 tab PO Q6H PRN 12/01/20 03/23/21 03/23/21 History furosemide 20 mg tablet 20 mg PO DAILY PRN 03/15/21 03/23/21 Unknown History galantamine 4 mg tablet 4 mg PO BID #60 tab 03/15/21 03/23/21 Unknown Rx albuterol sulfate 2.5 mg INHALATION TID PRN 03/23/21 03/23/21 Unknown History alpha-1 proteinase inhib.(hum) See Rx Instructions .ROUTE .COMPLEX 03/23/21 03/23/21 Unknown History [Aralast MUSHROOM FARMER] budesonide-formoterol [Symbicort] 2 puff INHALATION BID 03/23/21 03/23/21 03/23/21 History galantamine 8 mg PO BID 03/23/21 03/23/21 Unknown History galantamine 12 mg PO BID 03/23/21 03/23/21 Unknown History guaifenesin [Mucinex] 600 mg PO QAM PRN 03/23/21 03/23/21 Unknown History levofloxacin 500 mg PO DAILY 03/23/21 03/23/21 Unknown History potassium chloride 10 meq PO DAILY PRN 03/23/21 03/23/21 Unknown History Allergies Allergy/AdvReac Type Severity Reaction Status Date / Time No Known Allergies Allergy Verified 03/23/21 17:04 PFSH Acute PFSH: Medical History (Updated 03/24/21 @ 05:39 by Adilia Cuevas MD) Ojrbz-7-bhecikgkutn deficiency COPD (chronic obstructive pulmonary disease) Depression Diastolic CHF History of COVID-19 (~11/2019) Hypertension Lewy body dementia Obesity Osteoporosis Port-A-Cath in place Right fibular fracture Sleep apnea Surgical History (Updated 03/23/21 @ 21:26 by Adilia Cuevas MD) History of back surgery History of tracheostomy Hx of appendectomy Hx of arthroscopy of right knee Hx of cataract extraction Hx of cholecystectomy Hx of hysterectomy Hx of tubal ligation Family History (Updated 03/23/21 @ 21:20 by Adilia Cuevas MD) Mother Hypertension Brother Hypertension Other FHx: alpha 1 antitrypsin deficiency Denies family history of Diabetes CAD (coronary artery disease) Clotting disorder Dementia Hyperlipidemia Psychiatric illness Chronic kidney disease (CKD) Suicide Anesthesia complication Bleeding disorder Family history of premature coronary artery disease Lung disease Cancer Stroke Social History (Updated 03/23/21 @ 21:20 by Adilia Cuevas MD) Smoking and tobacco status: never smoked Alcohol intake: never Substance/Drug Use: never Household members: family History of recent travel: No Vitals/I&O/Wt Last Vital Signs Temp 98.3 F 03/23/21 15:02 Pulse 97 03/23/21 20:43 Resp 20 H 03/23/21 20:43 BP 121/97 03/23/21 20:43 Pulse Ox 97 03/23/21 20:43 03/23/21 03/23/21 03/23/21 06:59 14:59 22:59 Intake Total 50 / 50 Balance 50 / 50 Weight last 48 hrs Weight 98.43 kg Physical Exam Narrative: EXAM NARRATIVE: Constitutional: Awake and alert, able to provide a history herself for the most part, wearing BiPAP HEENT: Normocephalic, atraumatic, extraocular movements intact, pupils reactive, nasopharynx without obvious rhinorrhea, mucous membranes moist, posterior oropharynx not visualized currently Neck: Supple, healed tracheostomy scar, unable to get into appropriate position for JVD evaluation presently due to respiratory status Respiratory: Wheezes and crackles bilaterally, able to talk in few word sentences while on BiPAP Cardiovascular: Regular rhythm, distant heart sounds, brisk capillary refill Abdomen: Soft, nondistended, nontender, positive bowel sounds : Normal external genitalia with some erythema more prominent on the right than the left Extremities: Puffy distal extremities with trace pitting edema Skin: Skin is dry, feet have flaking skin, both heels left more so than right or soft to touch, scattered minor bruises Neuro: Oriented to person, place and situation, unable to recall some details of events at home but generally able to provide history with some adjunctive clarification by son, face is symmetric, speech clear, handgrip equal, moves all extremities Psych: Normal affect, cooperative Data : 03/23/21 18:10 03/23/21 18:10 A&P Assessment and plan (1) Acute exacerbation of chronic obstructive pulmonary disease: Status: Acute (2) Exposure to COVID-19 virus: Status: Acute (3) Avawm-3-wwrzgzztqks deficiency: Status: Chronic (4) Diastolic CHF: Status: Chronic Qualifiers: Heart failure chronicity: unspecified Qualified Code(s): I50.30 - Unspecified diastolic (congestive) heart failure (5) Hypertension: Status: Chronic Qualifiers: Hypertension type: essential hypertension Qualified Code(s): I10 - Essential (primary) hypertension (6) Sleep apnea: Status: Acute Qualifiers: Sleep apnea type: obstructive Qualified Code(s): G47.33 - Obstructive sleep apnea (adult) (pediatric) (7) Chronic steroid use: Status: Chronic (8) Lewy body dementia: Status: Chronic Qualifiers: Dementia behavioral disturbance: without behavioral disturbance Qualified Code(s): G31.83 - Dementia with Lewy bodies; F02.80 - Dementia in other diseases classified elsewhere without behavioral disturbance Additional A&P Information Inpatient admission Send Covid PCR, discussed with patient and family Continue BiPAP Covid isolation currently, HEPA filter available for room Get blood cultures We will check sputum specimen Check bacterial antigens Oral doxycycline for now Patient is willing to increase prednisone to 10 mg daily, explained we may have to go up more but we will see how she responds with this Check some baseline Covid labs - D-dimer, fibrinogen, ferritin, lactic acid, CRP, procalcitonin and INR Inhaled budesonide, albuterol Will give a dose of IV Lasix and monitor response, only takes prn at home Secondary to current respiratory status and difficulty ambulating, place aguillon catheter while receiving diuretics Consider further pulmonary imaging pending response to initiation of above-mentioned treatment and work-up Check echocardiogram Continue serial cardiac enzymes Continue JENNIFER inhibitor and metoprolol Continue current home dose of galantamine Continue home oxycodone and trazodone Currently holding home amlodipine, alendronate oral Lasix and oral potassium Supportive care otherwise Lines/tubes: Aguillon catheter, has a port DVT prophylaxis: Lovenox Plans, findings and concerns discussed with patient and her son and both were given an opportunity to ask questions. Anticipated Disposition: Home with family, has oxygen at 6 L by nasal cannula and BiPAP at home as well as nebulizer Code Status: Full code Attestations Medical Necessity Statement*: Anticipated stay greater than two midnights in this patient with alpha-1 antitrypsin deficiency and associated COPD presenting with acute exacerbation. She is not presented to the hospital necessitating stay for quite some time. She has had exposure to Covid but rapid antigen is negative. Covid PCR has been ordered. In addition to respiratory support, she is receiving IV Lasix and monitoring for progressive symptoms. Other plans as indicated. High risk of rapid clinical decline given the current oxygen requirements. Coding Level of Care Code Acute Biosolids Management Technician for [facility] Diagnoses Acute exacerbation of chronic obstructive pulmonary disease J44.1 Exposure to COVID-19 virus Z20.822 Yjrck-0-bfqnqskhcsp deficiency E88.01 Diastolic CHF I50.30 Heart failure chronicity: unspecified Hypertension I10 Hypertension type: essential hypertension Sleep apnea G47.33 Sleep apnea type: obstructive Chronic steroid use Lewy body dementia G31.83; F02.80 Dementia behavioral disturbance: without behavioral disturbance
[2021-03-23] MEDS: oxyCODONE-APAP 5-325 mg Tablet 1 TAB PO (21:51)
[2021-03-23 21:53] LABS: INR 1.04 (0.8-1.2)
[2021-03-23 21:54] LABS: Fibrinogen 381 mg/dL (174-498)
[2021-03-23 21:56] LABS: D Dimer 0.85 ug/mIFEU (0-0.59); Lactic Sepsis W/Reflex 1.2 mmol/L (0.5-2.2)
[2021-03-23 22:22] LABS: C Reactive Protein 17.8 mg/L (0.0-4.9)
[2021-03-23 22:28] LABS: Procalcitonin 0.09 ng/mL (0-0.5)
[2021-03-24] VITALS (24 sets, daily range): BP systolic 133–201; BP diastolic 77–106; PULSE 88–132; RESP 17–22; TEMP 36.7–36.9; O2SAT 91–98
--- NOTE | 2021-03-24 00:09 | PC.NURSE ---
report to Chinyere MARTIN
[2021-03-24 01:13] LABS: Troponin 5 6HR 11.07 ng/L (0-10)
[2021-03-24 01:15] LABS: Ferritin 85 ng/mL (15-150)
[2021-03-24 01:24] LABS: Troponin 5 6HR Delta -6.93 ng/L (0-12)
--- NOTE | 2021-03-24 02:04 | PC.NURSE ---
Patients O2 dropped down to 80 while using the bedpan. O2 was set to 10L NC patients SATS came back up to 96% Patients O2 was set back to 6L NC and patients SATS stayed at 95%
[2021-03-24] MEDS: enoxaparin 40 mg/0.4 mL Syringe SUBCUT (02:49)
[2021-03-24] MEDS: potassium chloride ER 20 mEq Tablet PO (02:50)
[2021-03-24] MEDS: FUROsemide 10 mg/mL SDV 4mL 40 MG IVP (03:00)
[2021-03-24] MEDS: predniSONE 5 mg Tablet 10 MG PO (05:47)
[2021-03-24] MEDS: lisinopril 20 mg Tablet PO (05:47)
--- NOTE | 2021-03-24 06:00 | USCV_ITS ---
Blank Middleton Age: 80 Gender: F : 1940 Exam Date: 03/24/2021 09:56 Ordering Phys: Adilia Cuevas MD Technologist: Lenea Kearney [place] [facility] [place]ication: COPD exacerbation, orthopnea, HODGSON, elevated BNP BP: 178 / 98 HR: 99 Rhythm: Sinus Technical Quality: Adequate MEASUREMENTS (Male / Female) Normal Values 2D ECHO LV Diastolic Diameter PLAX 3.7 cm 4.2 - 5.9 / 3.9 - 5.3 cm LV Systolic Diameter PLAX 3.4 cm IVS Diastolic Thickness 1.2 cm 0.6 - 1.0 / 0.6 - 0.9 cm IVS Systolic Thickness 1.2 cm LVPW Diastolic Thickness 1.1 cm 0.6 - 1.0 / 0.6 - 0.9 cm LVPW Systolic Thickness 1.6 cm LVOT Diameter 2.1 cm LV Ejection Fraction 2D Teich 17.9 % LV Ejection Fraction MOD 2C 67.7 % LV Ejection Fraction 2C AL 69.4 % LA Diameter 2.7 cm LA Width 3.8 cm LA Height 5.4 cm RA Width 3.5 cm RA Height 3.5 cm Aorta at Sinotubular Diameter 3.5 cm M-MODE LV Diastolic Diameter MM 5.9 cm 4.2 - 5.9 / 3.9 - 5.3 cm LV Systolic Diameter MM 3.5 cm LV Ejection Fraction MM Teich 71.0 % IVS Diastolic Thickness MM 0.8 cm 0.6 - 1.0 / 0.6 - 0.9 cm IVS Systolic Thickness MM 1.3 cm LVPW Diastolic Thickness MM 0.9 cm 0.6 - 1.0 / 0.6 - 0.9 cm LVPW Systolic Thickness MM 1.7 cm Aortic Annulus Diameter 3.9 cm LA Ao Ratio MM 0.7 MV E Point Septal Separation 0.4 cm DOPPLER AV Peak Velocity 124.0 cm/s LVOT Peak Velocity 89.0 cm/s AV Area Cont Eq vti 2.5 cm squared AV Area Cont Eq pk 2.4 cm squared MV E' Velocity 7.0 cm/s TR Peak Velocity 300.9 cm/s TR Peak Gradient 36.2 mmHg TR Mean Velocity 147.1 cm/s TR Mean Gradient 12.2 mmHg TR Velocity Time Integral 36.2 cm Right Atrial Pressure 3.0 mmHg Pulmonary Artery Systolic Pressu 39.2 mmHg PV Peak Velocity 83.0 cm/s RV Acceleration Time 0.1 s RV Ejection Time 0.3 s RV AcT/ET 0.2 FINDINGS Left Ventricle Normal left ventricular cavity size. Normal left ventricular systolic function. No regional wall motion abnormalities. Left ventricular ejection fraction is estimated at 65 %. Right Ventricle The right ventricle is normal in size and function. Right Atrium The right atrium is normal in size. Left Atrium The left atrium is normal in size. Mitral Valve Mildly thickened mitral valve. No mitral valve stenosis. Mild mitral valve regurgitation. Aortic Valve Aortic valve sclerosis without stenosis and trace regurgitation. Tricuspid Valve Structurally normal tricuspid valve without significant stenosis or regurgitation. Pulmonary artery systolic pressure is normal. Pulmonic Valve Structurally normal pulmonic valve without significant stenosis. There is no pulmonic regurgitation. Pericardium Normal pericardium without effusion. Aorta Normal ascending aorta dimension. CONCLUSIONS 1-Normal left ventricular cavity size. Normal left ventricular systolic function. No regional wall motion abnormalities. Left ventricular ejection fraction is estimated at 65 %. 2-There is no pericardial effusion. 3-No significant valve abnormalities. 4-Pulmonary artery systolic pressure is within normal limits. 5-Right atrial pressure is around 5 mm of mercury 06/23/2018. Hailey Sprague MD (Electronically Signed) Final Date: 24 March 2021 15:19 S
[2021-03-24 06:47] LABS: Basophils % 0.4 %; Hematocrit 44.3 % (37.0-47.0); Hemoglobin 13.3 g/dL (11.5-15.3); Lymphocytes # 0.8 10^3/uL (0.8-4.8); Lymphocytes % 17.7 %; Mean Corpuscular Hemoglobin 28.1 pg (28.0-34.0); Mean Corpuscular Volume 93.7 fL (81-99); Monocytes # 0.1 10^3/uL (0.2-0.9); Monocytes % 1.3 %; Neutrophils # 3.76 10^3/uL (1.8-7.7); Neutrophils % 80.2 %; Nucleated Red Blood Cells % 0 %; Platelet Count 166 10^3/cmm (130-400); Red Blood Count 4.73 10^6/uL (4.1-5.3); Red Cell Distribution Width 13.9 % (12.1-15.1); White Blood Count 4.7 10^3/uL (4.0-10.0)
[2021-03-24 07:04] LABS: Alanine Aminotransferase 50 U/L (0-33); Albumin Level 3.9 g/dL (3.5-5.2); Alkaline Phosphatase 113 IU/L (35-105); Anion Gap 14.9 (5-19); Aspartate Amino Transferase 47 U/L (0-32); Blood Urea Nitrogen 7 mg/dL (8-23); Calcium 9.3 mg/dL (8.5-10.5); Carbon Dioxide 33 mmol/L (22-29); Chloride 97 mmol/L (98-107); Globulin 3.2 g/dL (1.3-4.6); Glucose 151 mg/dL (65-115); Osmolality Calculated 293 mOsm/kg (285-295); Phosphorus 2.9 mg/dL (2.5-4.5); Potassium 3.9 mmol/L (3.5-5.1); Sodium 141 mmol/L (136-145); Total Bilirubin 0.4 mg/dL (0.15-1.2); Total Protein 7.1 g/dL (6.6-8.7)
[2021-03-24] MEDS: budesonide 0.5 mg/2 mL Neb INHALATION ×2 (08:45→22:08)
[2021-03-24] MEDS: docusate sodium 100 mg Capsule PO (09:40)
[2021-03-24] MEDS: doxycycline 100 mg Tablet PO ×2 (09:40→18:14)
[2021-03-24] MEDS: metoprolol tartrate 25 mg Tablet PO ×2 (09:40→21:33)
[2021-03-24] MEDS: oxyCODONE-APAP 10-325 mg Tablet 1 TAB PO ×2 (09:46→18:14)
--- NOTE | 2021-03-24 11:26 | PC.CHAP ---
Pastoral Care Encounter/Spiritual Assessment Type of Contact [] Declined waterproofer helper visit [] Patient/Family/Request visit [] Outpatient visit [] Follow-up visit [] Physician referral [] Code/Alert [] Routine visit [] Staff referral [] Actively dying [] Patient sleeping [] Family support [] [] Out of room [] Palliative care [] [] Receiving care in room [] Pre-surgical visit [] Trauma [] Long length of stay [] ICU visit [x] Other: Isolation Relational/Emotional Strength [] Patient feels connected with others/family/visitors/staff [] Distress [] Loneliness/isolation [] Abandonment Spirituality of Patient [] Person of Ese [] Attends Moravian of their Ese [] Believes in Prayer [] Reads Bible or Amish materials [] There are Spiritual issues to be addressed Director Of Consumer Affairs Interventions [] Prayer [] Active listening [] Non-anxious presence [] Spiritual/emotional support [] Crisis/trauma care [] Spiritual counseling [] Bereavement support [] Provided bereavement packet [] Provided Bible/devotional materials [] Provided toy/stuffed animal, coloring book to patient or family member [] Provided Communion [] Anointing/[place] [] Salvation [] Completed spiritual assessment [] Other: Impact on Illness or Injury [] Angry [] Fearful [] Anxious [] Often cries [] Exhaustion [] Unable to work [] Unable to attend orthodox [] Unable to walk/stand [] Unable to read [] Unable to drive [] Unable to eat/drink [] Unable to sleep [] Unable to be with family [] Patient intubated [] Other: Summary Isolation Time spent with patient
[2021-03-24 16:49] LABS: Coronavirus Test Green County Not Detected
--- NOTE | 2021-03-24 19:26 | PM.PN ---
Subjective Subjective: Interval history: This morning she got into some respiratory distress, initially weaned off BiPAP to nasal cannula, but had to be restarted on BiPAP. Subsequently transitioned and doing well on high flow cannula 5 L. Coughing. Coughing up yellow phlegm which is now turning white. Denies chest pain. Vitals/I&O/Wt Last Vital Signs Temp 98.4 F 03/24/21 15:59 Pulse 106 H 03/24/21 15:59 Resp 22 H 03/24/21 18:14 BP 166/80 03/24/21 15:59 Pulse Ox 93 03/24/21 15:59 03/24/21 03/24/21 03/24/21 06:59 14:59 22:59 Intake Total 620 / 620 235 / 855 Output Total 950 / 950 1999 / 1999 Balance -950 / -650 620 / 620 -1765 / -1145 Weight last 48 hrs Weight 90.718 kg Weight 98.43 kg Physical Exam Const: COMMON NORMALS: no acute distress, patient oriented x3 and alert GENERAL APPEARANCE: cooperative NUTRITIONAL APPEARANCE: obese ORIENTATION/CONSCIOUSNESS: Yes awake HENMT: COMMON NORMALS: oropharynx normal Neck/C-Spine: COMMON NORMALS: no JVD Resp: COMMON NORMALS: normal respiratory effort AUSCULTATION: diminished lung sounds Cardio: COMMON NORMALS: no JVD, regular rhythm, S1 normal heart sound present, S2 normal heart sound present and No murmurs present (Cardio) RHYTHM: regular rhythm HEART SOUNDS: S1 normal heart sound present and S2 normal heart sound present GI: COMMON NORMALS: Normal to inspection, nondistended, normoactive bowel sounds present, Soft to palpation and non-tender PALPATION: Yes Soft to palpation Extremity: COMMON NORMALS: no joint enlargement GENERAL: Yes edema (2+) Neuro: COMMON NORMALS: patient oriented x3 and moves all extremities SENSORIUM/ORIENTATION: Yes alert Skin: COMMON NORMALS: no rashes or lesions noted GENERAL SKIN EXAM: no rashes or lesions noted Urinary Catheter Management^: Jama: Cath Placed During This Visit: yes Reason for Continuing Indwelling Catheter: Other Urinary Catheter Date of Insertion: 03/24/21 Urinary Catheter Time of Insertion: 03:20 Data : 03/24/21 06:08 03/24/21 06:08 Micro: Microbiology 03/24/21 06:25 Legionella Urinary Antigen - Final Urine Catheterized 03/24/21 06:25 Bacterial Antigens - Final Urine,Voided 03/23/21 21:28 Blood Culture - Preliminary Blood SPECIMEN COLLECTED 03/23/21 21:32 Blood Culture - Preliminary Blood SPECIMEN COLLECTED A&P Assessment and plan (1) Acute exacerbation of chronic obstructive pulmonary disease: Severe COPD exacerbation. Respiratory failure. With worsening hypoxia, cough productive yellow sputum. Respiratory distress, tachycardia today after weaning of BiPAP to nasal cannula. After additional BiPAP switch to high flow cannula, appears to be doing better. On 5 L. With underlying bronchiectasis, fibrosis, alpha-1 antitrypsin deficiency. Left lung pneumonia. Continue doxycycline, added Rocephin. Change steroid to Solu-Medrol. Continue albuterol. Budesonide. Negative COVID-19 PCR. Follow-up sputum culture. Status: Acute (2) Exposure to COVID-19 virus: Negative COVID-19 PCR. DC isolation. Status: Acute (3) Szbmw-5-uljulzusdse deficiency: Status: Chronic (4) Diastolic CHF: Reports chronic lower extremity edema, currently much better than usual. Received Lasix. Monitor I&O. Repeat in the morning. Status: Chronic Qualifiers: Heart failure chronicity: unspecified Qualified Code(s): I50.30 - Unspecified diastolic (congestive) heart failure (5) Hypertension: Status: Chronic Qualifiers: Hypertension type: essential hypertension Qualified Code(s): I10 - Essential (primary) hypertension (6) Sleep apnea: Status: Acute Qualifiers: Sleep apnea type: obstructive Qualified Code(s): G47.33 - Obstructive sleep apnea (adult) (pediatric) (7) Chronic steroid use: Status: Chronic (8) Lewy body dementia: Status: Chronic Qualifiers: Dementia behavioral disturbance: without behavioral disturbance Qualified Code(s): G31.83 - Dementia with Lewy bodies; F02.80 - Dementia in other diseases classified elsewhere without behavioral disturbance Attestations Medical Necessity Statement*: Continue admission for assessment of management of respiratory failure, severe COPD exacerbation, with underlying bronchiectasis, fibrosis, alpha-1 antitrypsin deficiency, pneumonia, with underlying diastolic CHF. Coding Level of Care Code Acute Electrical Prospecting Observer for [facility] Diagnoses Acute exacerbation of chronic obstructive pulmonary disease J44.1 Exposure to COVID-19 virus Z20.822 Svjyy-2-akhxnxgozah deficiency E88.01 Diastolic CHF I50.30 Heart failure chronicity: unspecified Hypertension I10 Hypertension type: essential hypertension Sleep apnea G47.33 Sleep apnea type: obstructive Chronic steroid use Lewy body dementia G31.83; F02.80 Dementia behavioral disturbance: without behavioral disturbance
[2021-03-24] MEDS: cefTRIAXone 1,000 MG in sodium chloride 0.9% (plus) 50 ML 100 MG IV (21:33)
[2021-03-24] MEDS: trazodone 100 mg Tablet PO (22:49)
[2021-03-25] VITALS (19 sets, daily range): BP systolic 146–160; BP diastolic 77–91; PULSE 72–97; RESP 16–23; TEMP 36.5–37.1; O2SAT 81–98
[2021-03-25] MEDS: oxyCODONE-APAP 10-325 mg Tablet 1 TAB PO ×3 (00:30→19:37)
[2021-03-25] MEDS: enoxaparin 40 mg/0.4 mL Syringe SUBCUT (01:44)
[2021-03-25] MEDS: lisinopril 20 mg Tablet PO (06:04)
[2021-03-25] MEDS: FUROsemide 10 mg/mL SDV 4mL 40 MG IVP (06:29)
[2021-03-25] MEDS: budesonide 0.5 mg/2 mL Neb INHALATION ×2 (07:50→19:59)
[2021-03-25] MEDS: metoprolol tartrate 25 mg Tablet PO ×2 (08:33→19:43)
[2021-03-25] MEDS: acetaminophen 325 mg Tablet 650 MG PO (08:33)
[2021-03-25] MEDS: doxycycline 100 mg Tablet PO ×2 (08:33→18:54)
--- NOTE | 2021-03-25 09:31 | PC.RESP ---
PULMONARY REHAB INFORMATION SENT TO PATIENT.
[2021-03-25 09:57] LABS: Basophils % 0.2 %; Hematocrit 44.9 % (37.0-47.0); Hemoglobin 13.6 g/dL (11.5-15.3); Lymphocytes # 0.7 10^3/uL (0.8-4.8); Lymphocytes % 13.1 %; Mean Corpuscular HGB Conc 30.3 g/dL (30.0-36.0); Mean Corpuscular Hemoglobin 27.9 pg (28.0-34.0); Mean Corpuscular Volume 92.2 fL (81-99); Monocytes # 0.1 10^3/uL (0.2-0.9); Monocytes % 1.8 %; Neutrophils # 4.81 10^3/uL (1.8-7.7); Neutrophils % 84.7 %; Nucleated Red Blood Cells % 0 %; Platelet Count 192 10^3/cmm (130-400); Red Blood Count 4.87 10^6/uL (4.1-5.3); Red Cell Distribution Width 13.6 % (12.1-15.1); White Blood Count 5.7 10^3/uL (4.0-10.0)
[2021-03-25 10:23] LABS: Alanine Aminotransferase 32 U/L (0-33); Albumin Level 3.8 g/dL (3.5-5.2); Alkaline Phosphatase 87 IU/L (35-105); Anion Gap 13.7 (5-19); Aspartate Amino Transferase 31 U/L (0-32); Blood Urea Nitrogen 10 mg/dL (8-23); Calcium 8.7 mg/dL (8.5-10.5); Carbon Dioxide 33 mmol/L (22-29); Chloride 94 mmol/L (98-107); Globulin 3.1 g/dL (1.3-4.6); Glucose 260 mg/dL (65-115); Osmolality Calculated 292 mOsm/kg (285-295); Potassium 3.7 mmol/L (3.5-5.1); Sodium 137 mmol/L (136-145); Total Bilirubin 0.3 mg/dL (0.15-1.2); Total Protein 6.9 g/dL (6.6-8.7)
--- NOTE | 2021-03-25 12:05 | PC.NURSE ---
I received a call from patient's daughter stating that patient was not receiving her Percocet as ordered. I spoke with Boo Daigle RN and she states that patient's pain was 4/10 so she administered Tylenol. I went in and spoke with patient and she states that her pain is now 10/10 in her back. I educated her on low, moderate, and severe pain and the corresponding PRN pain medications for each level of pain and she verbalizes understanding and states that she wasn't aware of that when she rated her pain 4/10. I provided her education on the pain scale and we established a pain goal of 4/10, which is baseline for her and allows her to perform activities normally. She denies any further questions or concerns at this time. I called and spoke with patient's daughter again and provided her an update. She verbalizes understanding and denies further questions or concerns.
[2021-03-25] MEDS: cefTRIAXone 1,000 MG in sodium chloride 0.9% (plus) 50 ML 100 MG IV (19:38)
[2021-03-25] MEDS: trazodone 100 mg Tablet PO (19:42)
--- NOTE | 2021-03-25 20:18 | P.PN_ITS ---
Subjective Subjective: Interval history: She is feeling better, but still gets rather dyspneic, coughing quite a bit, wheezing, not close to her baseline. Oxygen requirement still increased. Vitals/I&O/Wt Last Vital Signs Temp 98.1 F 03/25/21 16:00 Pulse 94 03/25/21 20:06 Resp 20 H 03/25/21 19:59 BP 150/80 03/25/21 16:00 Pulse Ox 97 03/25/21 20:01 03/25/21 03/25/21 03/25/21 06:59 14:59 22:59 Intake Total 50 / 905 628 / 628 Output Total 850 / 4850 2250 / 2250 240 / 2490 Balance -800 / -3945 -1622 / -1622 -240 / -1862 Weight last 48 hrs Weight 85.094 kg Weight 90.718 kg Physical Exam Const: COMMON NORMALS: no acute distress, patient oriented x3 and alert GENERAL APPEARANCE: cooperative NUTRITIONAL APPEARANCE: obese ORIENTATION/CONSCIOUSNESS: Yes awake HENMT: COMMON NORMALS: oropharynx normal Neck/C-Spine: COMMON NORMALS: no JVD Resp: COMMON NORMALS: normal respiratory effort AUSCULTATION: wheezes and diminished lung sounds OTHER: Coughing Cardio: COMMON NORMALS: no JVD, regular rhythm, S1 normal heart sound present, S2 normal heart sound present and No murmurs present (Cardio) RHYTHM: regular rhythm HEART SOUNDS: S1 normal heart sound present and S2 normal heart sound present GI: COMMON NORMALS: Normal to inspection, nondistended, normoactive bowel sounds present, Soft to palpation and non-tender PALPATION: Yes Soft to palpation Extremity: COMMON NORMALS: no joint enlargement GENERAL: Yes edema (2+) Neuro: COMMON NORMALS: patient oriented x3 and moves all extremities SENSORIUM/ORIENTATION: Yes alert Skin: COMMON NORMALS: no rashes or lesions noted GENERAL SKIN EXAM: no rashes or lesions noted Urinary Catheter Management^: Jama: Cath Placed During This Visit: yes Reason for Continuing Indwelling Catheter: Other Urinary Catheter Date of Insertion: 03/24/21 Urinary Catheter Time of Insertion: 03:20 Data : 03/25/21 09:28 03/25/21 09:28 Micro: Microbiology 03/23/21 21:28 Blood Culture - Preliminary Blood NEGATIVE TO DATE 03/23/21 21:32 Blood Culture - Preliminary Blood NEGATIVE TO DATE A&P Assessment and plan (1) Acute exacerbation of chronic obstructive pulmonary disease: Persistent severe COPD exacerbation, with some improvement, but still incr eased oxygen requirement, currently 8 L high flow. She is still wheezing, coughing. Increase Solu-Medrol dose to 80 mg every 6. Continue change antibiotic to cefepime, vancomycin. Continue breathing treatments. Continue oxygen support, wean off as tolerating. Check MRSA PCR. Repeat CXR. With underlying bronchiectasis, fibrosis, alpha-1 antitrypsin deficiency. Left lung pneumonia. Negative COVID-19 PCR. Follow-up sputum culture. Status: Acute (2) Xxdag-3-xszexbxrwak deficiency: Status: Chronic (3) Diastolic CHF: Reports chronic lower extremity edema, currently much better than usual. Received Lasix. Monitor I&O. Continue daily. Status: Chronic Qualifiers: Heart failure chronicity: unspecified Qualified Code(s): I50.30 - Unspecified diastolic (congestive) heart failure (4) Hypertension: Status: Chronic Qualifiers: Hypertension type: essential hypertension Qualified Code(s): I10 - Essential (primary) hypertension (5) Sleep apnea: Status: Acute Qualifiers: Sleep apnea type: obstructive Qualified Code(s): G47.33 - Obstructive sleep apnea (adult) (pediatric) (6) Chronic steroid use: Status: Chronic (7) Lewy body dementia: Status: Chronic Qualifiers: Dementia behavioral disturbance: without behavioral disturbance Qualified Code(s): G31.83 - Dementia with Lewy bodies; F02.80 - Dementia in other diseases classified elsewhere without behavioral disturbance (8) Exposure to COVID-19 virus: Negative COVID-19 PCR. Status: Acute Attestations Medical Necessity Statement*: Continue admission for assessment management of respiratory failure, severe COPD exacerbation. Coding Level of Care Code Acute Visitor Services Information Assistant for [facility] Fwd Diagnoses Acute exacerbation of chronic obstructive pulmonary disease J44.1 Srifk-8-itfvzqrjjxi deficiency E88.01 Diastolic CHF I50.30 Heart failure chronicity: unspecified Hypertension I10 Hypertension type: essential hypertension Sleep apnea G47.33 Sleep apnea type: obstructive Chronic steroid use Lewy body dementia G31.83; F02.80 Dementia behavioral disturbance: without behavioral disturbance Exposure to COVID-19 virus Z20.822
--- NOTE | 2021-03-25 20:37 | PC.PHAR ---
Vancomycin is dosed at 1000mg IVPB every 12 hours to produce a predicted trough level of 18.04 (population based pharmacokinetic analysis). A trough level has been ordered from the lab to be obtained before the fourth dose to confirm and adjust if needed.
[2021-03-25] MEDS: cefepime 1,000 MG in sodium chloride 0.9% (plus) 50 ML 100 MG IV (21:24)
[2021-03-25] MEDS: vancomycin 1,000 MG in sodium chloride 0.9% 250 ML 250 MG IV (22:08)
[2021-03-26] VITALS (18 sets, daily range): BP systolic 124–179; BP diastolic 78–97; PULSE 74–114; RESP 14–22; TEMP 36.7–37; O2SAT 91–98
[2021-03-26] MEDS: enoxaparin 40 mg/0.4 mL Syringe SUBCUT (01:27)
[2021-03-26] MEDS: lisinopril 20 mg Tablet PO (05:45)
[2021-03-26] MEDS: FUROsemide 10 mg/mL SDV 4mL 20 MG IVP (05:45)
[2021-03-26 05:56] LABS: Basophils % 0.1 %; Hematocrit 43.2 % (37.0-47.0); Hemoglobin 13.5 g/dL (11.5-15.3); Lymphocytes # 1.3 10^3/uL (0.8-4.8); Lymphocytes % 14.9 %; Mean Corpuscular HGB Conc 31.3 g/dL (30.0-36.0); Mean Corpuscular Hemoglobin 28.1 pg (28.0-34.0); Mean Corpuscular Volume 89.8 fL (81-99); Mean Platelet Volume 9.8 fL (7.4-10.4); Monocytes # 0.2 10^3/uL (0.2-0.9); Monocytes % 2.5 %; Neutrophils # 6.89 10^3/uL (1.8-7.7); Neutrophils % 82.1 %; Nucleated Red Blood Cells % 0 %; Platelet Count 213 10^3/cmm (130-400); Red Blood Count 4.81 10^6/uL (4.1-5.3); Red Cell Distribution Width 13.4 % (12.1-15.1); White Blood Count 8.4 10^3/uL (4.0-10.0)
--- NOTE | 2021-03-26 06:00 | XRR_ITS ---
PROCEDURE INFORMATION: Exam: XR Chest Exam date and time: 03/26/2021 6:00 AM Age: 80 years old Clinical indication: Shortness of breath; Additional info: Hypoxia TECHNIQUE: Imaging protocol: XR of the chest. Views: 1 view. COMPARISON: CR XR chest 1V portable [id number] 03/23/2021 4:36 PM FINDINGS: Tubes, catheters and devices: Med port catheter again demonstrated. Lungs: COPD and interstitial prominence. Poorly characterized 1.9 cm nodular density and linear parenchymal density overlying the right infrahilar region. Pleural spaces: No significant pleural effusion. Heart/Mediastinum: No cardiomegaly. Bones/joints: Osteopenia and degenerative change. XR/XR chest 1V portable [id number] IMPRESSION: COPD and poorly characterized 1.9 cm nodular density and linear parenchymal density overlying the right infrahilar region.
[2021-03-26 06:13] LABS: Alanine Aminotransferase 26 U/L (0-33); Albumin Level 3.7 g/dL (3.5-5.2); Alkaline Phosphatase 80 IU/L (35-105); Anion Gap 11.9 (5-19); Aspartate Amino Transferase 21 U/L (0-32); Blood Urea Nitrogen 14 mg/dL (8-23); Calcium 9.2 mg/dL (8.5-10.5); Carbon Dioxide 35 mmol/L (22-29); Chloride 94 mmol/L (98-107); Globulin 2.8 g/dL (1.3-4.6); Glucose 151 mg/dL (65-115); Osmolality Calculated 287 mOsm/kg (285-295); Potassium 3.9 mmol/L (3.5-5.1); Sodium 137 mmol/L (136-145); Total Bilirubin 0.4 mg/dL (0.15-1.2); Total Protein 6.5 g/dL (6.6-8.7)
[2021-03-26] MEDS: cefepime 1,000 MG in sodium chloride 0.9% (plus) 50 ML 100 MG IV ×2 (08:43→21:11)
[2021-03-26] MEDS: oxyCODONE-APAP 10-325 mg Tablet 1 TAB PO ×2 (08:44→15:57)
[2021-03-26] MEDS: metoprolol tartrate 25 mg Tablet PO ×2 (08:44→21:11)
[2021-03-26] MEDS: budesonide 0.5 mg/2 mL Neb INHALATION ×2 (08:49→20:09)
[2021-03-26] MEDS: vancomycin 1,000 MG in sodium chloride 0.9% 250 ML 250 MG IV ×2 (13:36→23:30)
--- NOTE | 2021-03-26 14:40 | DCPLANNER ---
Pg 2 of IM updated and reviewed with pt. No questions, copy provided.
--- NOTE | 2021-03-26 15:40 | P.PN_ITS ---
Subjective Subjective: Interval history: Today she is feeling slightly better. Gets very dyspneic with exertion. Coughing. Vitals/I&O/Wt Last Vital Signs Temp 98.4 F 03/26/21 12:00 Pulse 76 03/26/21 12:00 Resp 18 03/26/21 12:00 BP 160/84 03/26/21 12:00 Pulse Ox 97 03/26/21 12:00 03/26/21 03/26/21 03/26/21 06:59 14:59 22:59 Intake Total 300 / 978 650 / 650 Output Total 750 / 3240 Balance -450 / -2262 650 / 650 Weight last 48 hrs Weight 85.094 kg Physical Exam Const: COMMON NORMALS: no acute distress, patient oriented x3 and alert GENERAL APPEARANCE: cooperative NUTRITIONAL APPEARANCE: obese ORIENTATION/CONSCIOUSNESS: Yes awake HENMT: COMMON NORMALS: oropharynx normal Neck/C-Spine: COMMON NORMALS: no JVD Resp: COMMON NORMALS: normal respiratory effort AUSCULTATION: crackles, wheezes and diminished lung sounds Cardio: COMMON NORMALS: no JVD, regular rhythm, S1 normal heart sound present, S2 normal heart sound present and No murmurs present (Cardio) RHYTHM: regular rhythm HEART SOUNDS: S1 normal heart sound present and S2 normal heart sound present GI: COMMON NORMALS: Normal to inspection, nondistended, normoactive bowel sounds present, Soft to palpation and non-tender PALPATION: Yes Soft to palpation Extremity: COMMON NORMALS: no joint enlargement GENERAL: Yes edema (2+) Neuro: COMMON NORMALS: patient oriented x3 and moves all extremities SENSORIUM/ORIENTATION: Yes alert Skin: COMMON NORMALS: no rashes or lesions noted GENERAL SKIN EXAM: no rashes or lesions noted Urinary Catheter Management^: Jama: Cath Placed During This Visit: yes Reason for Continuing Indwelling Catheter: Acute Urinary Retention or Obstruction Urinary Catheter Date of Insertion: 03/24/21 Urinary Catheter Time of Insertion: 03:20 Data : 03/26/21 05:43 03/26/21 05:43 Micro: Microbiology 03/26/21 06:10 MRSA Culture - Final Nose A&P Assessment and plan (1) Acute exacerbation of chronic obstructive pulmonary disease: Today slightly better, down on 6 L high flow cannula. Getting very easily dyspneic on exertion. Provided sputum sample. Continue steroids at increased dose as yesterday. Continue broaden antibiotics with cefepime, vancomycin. MRSA PCR positive. Continue breathing treatments. Continue oxygen support, wean off as tolerating. Repeat CXR 1.9 cm nodular density and linear parenchymal density overlying the right infrahilar region With underlying bronchiectasis, fibrosis, alpha-1 antitrypsin deficiency. Left lung pneumonia. Negative COVID-19 PCR. Follow-up sputum culture. Status: Acute (2) Mmhuv-1-fopukgcmsmc deficiency: Status: Chronic (3) Diastolic CHF: Reports chronic lower extremity edema, currently much better than usual. Received Lasix. Monitor I&O. Continue daily. Status: Chronic Qualifiers: Heart failure chronicity: unspecified Qualified Code(s): I50.30 - Unspecified diastolic (congestive) heart failure (4) Hypertension: Blood pressure is elevated, systolic 160s currently. Resume amlodipine. Status: Chronic Qualifiers: Hypertension type: essential hypertension Qualified Code(s): I10 - Essential (primary) hypertension (5) Sleep apnea: Status: Acute Qualifiers: Sleep apnea type: obstructive Qualified Code(s): G47.33 - Obstructive sleep apnea (adult) (pediatric) (6) Chronic steroid use: Status: Chronic (7) Lewy body dementia: Status: Chronic Qualifiers: Dementia behavioral disturbance: without behavioral disturbance Qualified Code(s): G31.83 - Dementia with Lewy bodies; F02.80 - Dementia in other diseases classified elsewhere without behavioral disturbance (8) Exposure to COVID-19 virus: Negative COVID-19 PCR. Status: Acute Attestations Medical Necessity Statement*: Continue admission for assessment of management of respiratory failure, severe COPD exacerbation with underlying bronchiectasis, pulmonary fibrosis, alpha-1 antitrypsin deficiency. Coding Level of Care Code Acute Matcher [employer] for [facility] Fwd Diagnoses Acute exacerbation of chronic obstructive pulmonary disease J44.1 Awpcj-8-fqtmfizhnzw deficiency E88.01 Diastolic CHF I50.30 Heart failure chronicity: unspecified Hypertension I10 Hypertension type: essential hypertension Sleep apnea G47.33 Sleep apnea type: obstructive Chronic steroid use Lewy body dementia G31.83; F02.80 Dementia behavioral disturbance: without behavioral disturbance Exposure to COVID-19 virus Z20.822
[2021-03-26] MEDS: amlodipine 10 mg Tablet PO (16:30)
[2021-03-26 21:57] LABS: Vancomycin Trough 9.9 ug/mL (10-15)
[2021-03-26] MEDS: trazodone 100 mg Tablet PO (22:20)
[2021-03-26] MEDS: bisacodyl 5 mg Tablet 10 MG PO (22:24)
[2021-03-27] VITALS (14 sets, daily range): BP systolic 115–162; BP diastolic 69–90; PULSE 75–101; RESP 16–21; TEMP 35.8–36.7; O2SAT 93–97
[2021-03-27] MEDS: enoxaparin 40 mg/0.4 mL Syringe SUBCUT (02:02)
[2021-03-27] MEDS: lisinopril 20 mg Tablet PO (05:42)
[2021-03-27] MEDS: amlodipine 10 mg Tablet PO (05:42)
[2021-03-27] MEDS: FUROsemide 10 mg/mL SDV 4mL 20 MG IVP (05:47)
[2021-03-27 05:48] LABS: Basophils % 0.1 %; Hematocrit 43.4 % (37.0-47.0); Hemoglobin 13.7 g/dL (11.5-15.3); Lymphocytes % 9.2 %; Mean Corpuscular HGB Conc 31.6 g/dL (30.0-36.0); Mean Corpuscular Hemoglobin 28.4 pg (28.0-34.0); Mean Platelet Volume 9.9 fL (7.4-10.4); Monocytes # 0.2 10^3/uL (0.2-0.9); Monocytes % 1.8 %; Neutrophils # 9.01 10^3/uL (1.8-7.7); Neutrophils % 87.6 %; Nucleated Red Blood Cells % 0 %; Platelet Count 239 10^3/cmm (130-400); Red Blood Count 4.82 10^6/uL (4.1-5.3); Red Cell Distribution Width 13.5 % (12.1-15.1); White Blood Count 10.3 10^3/uL (4.0-10.0)
[2021-03-27] MEDS: oxyCODONE-APAP 10-325 mg Tablet 1 TAB PO ×2 (07:44→13:53)
[2021-03-27] MEDS: budesonide 0.5 mg/2 mL Neb INHALATION ×2 (08:03→20:05)
[2021-03-27 08:24] LABS: Alanine Aminotransferase 27 U/L (0-33); Albumin Level 3.8 g/dL (3.5-5.2); Alkaline Phosphatase 77 IU/L (35-105); Anion Gap 10.3 (5-19); Aspartate Amino Transferase 22 U/L (0-32); Blood Urea Nitrogen 17 mg/dL (8-23); Calcium 8.9 mg/dL (8.5-10.5); Carbon Dioxide 39 mmol/L (22-29); Chloride 92 mmol/L (98-107); Glucose 166 mg/dL (65-115); Osmolality Calculated 291 mOsm/kg (285-295); Potassium 3.3 mmol/L (3.5-5.1); Sodium 138 mmol/L (136-145); Total Bilirubin 0.4 mg/dL (0.15-1.2); Total Protein 6.8 g/dL (6.6-8.7)
[2021-03-27] MEDS: cefepime 1,000 MG in sodium chloride 0.9% (plus) 50 ML 100 MG IV ×2 (08:34→20:23)
[2021-03-27] MEDS: metoprolol tartrate 25 mg Tablet PO ×2 (08:35→20:22)
[2021-03-27] MEDS: docusate sodium 100 mg Capsule PO ×2 (08:35→17:05)
[2021-03-27] MEDS: vancomycin 1,000 MG in sodium chloride 0.9% 250 ML 250 MG IV (09:33)
--- NOTE | 2021-03-27 11:37 | P.PN_ITS ---
Subjective Subjective: Interval history: She had a restless night, likely says due to steroids. She has been coughing up much sputum, so much so that she feels could not catch her breath this morning to try PT. She still some red blood on tissue paper, previously reports some streaks of red blood in stool at home. Has had colonoscopy before but probably 25 years ago. Vitals/I&O/Wt Last Vital Signs Temp 98.1 F 03/27/21 08:00 Pulse 86 03/27/21 08:13 Resp 20 H 03/27/21 08:03 BP 115/74 03/27/21 08:00 Pulse Ox 95 03/27/21 08:03 03/26/21 03/27/21 03/27/21 22:59 06:59 14:59 Intake Total 610 / 1260 300 / 1560 250 / 250 Output Total 2900 / 2900 2850 / 5750 Balance -2290 / -1640 -2550 / -4190 250 / 250 Weight last 48 hrs Weight 82.69 kg Physical Exam Const: COMMON NORMALS: no acute distress, patient oriented x3 and alert GENERAL APPEARANCE: cooperative NUTRITIONAL APPEARANCE: obese ORIENTA TION/CONSCIOUSNESS: Yes awake HENMT: COMMON NORMALS: oropharynx normal Neck/C-Spine: COMMON NORMALS: no JVD Resp: COMMON NORMALS: normal respiratory effort AUSCULTATION: no crackles, wheezes (Mild) and diminished lung sounds (Slightly better air entry today) O THER: Coughing Cardio: COMMON NORMALS: no JVD, regular rhythm, S1 normal heart sound present, S2 normal heart sound present and No murmurs present (Cardio) RHYTHM: regular rhythm HEART SOUNDS: S1 normal heart sound present and S2 normal heart sound present GI: COMMON NORMALS: Normal to inspection, nondistended, normoactive bowel sounds present, Soft to palpation and non-tender PALPATION: Yes Soft to palpation Extremity: COMMON NORMALS: no joint enlargement GENERAL: Yes edema (2+) Neuro: COMMON NORMALS: patient oriented x3 and moves all extremities SENSORIUM/ORIENTATION: Yes alert Skin: COMMON NORMALS: no rashes or lesions noted GENERAL SKIN EXAM: no rash es or lesions noted Urinary Catheter Management^: Jama: Cath Placed During This Visit: yes Reason for Continuing Indwelling Catheter: Accurate Measurement of Urinary Output in Critically Ill Patients Urinary Catheter Date of Insertion: 03/24/21 Urinary Catheter Time of Insertion: 03:20 Data : 03/27/21 05:26 03/27/21 07:45 Micro: Microbiology 03/27/21 09:45 Occult Blood (FIT) - Final Stool Routine Collection 03/26/21 06:10 MRSA Culture - Final Nose A&P Assessment and plan (1) Acute exacerbation of chronic obstructive pulmonary disease: She is producing quite a bit of phlegm, still dyspneic especially with exertion. Has not gotten up much further than the bedside commode here. [place] she was producing too much phlegm to try working with PT earlier today. They will revisit. Had a restless night. On exam air entry slightly better. Still wheezing and overall diminished. She is not yet in the place to return home, although gradually shows improvement. In terms of oxygen requirement she is weaned down close to her baseline at 6 L. Her discussion with her we will continue IV steroids for now but decrease dose to 40 mg Solu-Medrol every 6 hours. Continue empiric antibiotic with cefepime, vancomycin with positive MRSA PCR. Follow-up sputum culture. Continue breathing treatments. Continue oxygen support, wean off as tolerating. Repeat CXR 1.9 cm nodular density and linear parenchymal density overlying the right infrahilar region With underlying bronchiectasis, fibrosis, alpha-1 antitrypsin deficiency. Left lung pneumonia. Negative COVID-19 PCR. Status: Acute (2) Wvrrg-3-eitzeahzhld deficiency: Continue follow-up with primary provider, pulmonology. States she sees Dr. Mckee. Status: Chronic (3) Diastolic CHF: Reports chronic lower extremity edema, currently much better than usual. Received Lasix. Monitor I&O. Continue daily. Status: Chronic Qualifiers: Heart failure chronicity: unspecified Qualified Code(s): I50.30 - Unspe cified diastolic (congestive) heart failure (4) Hypertension: Blood pressure is elevated, systolic 160s currently. Resume amlodipine. Status: Chronic Qualifiers: Hypertension type: essential hypertension Qualified Code(s): I10 - Essential (primary) hypertension (5) Sleep apnea: Status: Acute Qualifiers: Sleep apnea type: obstructive Qualified Code(s): G47.33 - Obstructive sleep apnea (adult) (pediatric) (6) Chronic steroid use: Status: Chronic (7) Lewy body dementia: Status: Chronic Qualifiers: Dementia behavioral disturbance: without behavioral disturbance Qualified Code(s): G31.83 - Dementia with Lewy bodies; F02.80 - Dementia in other diseases classified elsewhere without behavioral disturbance (8) Exposure to COVID-19 virus: Negative COVID-19 PCR. Status: Acute Attestations Medical Necessity Statement*: Continue admission for assessment and management of severe COPD exacerbation with underlying bronchiectasis, fibrosis, improving acute on chronic respiratory failure. Coding Level of Care Code Acute Head Baker for [facility] [place] Diagnoses Acute exacerbation of chronic obstructive pulmonary disease J44.1 Asvex-8-sghkfclxhic deficiency E88.01 Diastolic CHF I50.30 Heart failure chronicity: unspecified Hypertension I10 Hypertension type: essential hypertension Sleep apnea G47.33 Sleep apnea type: obstructive Chronic steroid use Lewy body dementia G31.83; F02.80 Dementia behavioral disturbance: without behavioral disturbance Exposure to COVID-19 virus Z20.822
--- NOTE | 2021-03-27 13:02 | PC.NURSE ---
Report to Nelida MARTIN at this time.
[2021-03-27] MEDS: trazodone 100 mg Tablet PO (20:22)
[2021-03-27] MEDS: guaiFENesin 600 mg Tablet PO (20:22)
[2021-03-28] VITALS (17 sets, daily range): BP systolic 124–194; BP diastolic 72–97; PULSE 63–105; RESP 14–24; TEMP 36.3–37.1; O2SAT 94–97
[2021-03-28] MEDS: vancomycin 1,000 MG in sodium chloride 0.9% 250 ML 250 MG IV ×2 (00:40→10:03)
[2021-03-28] MEDS: enoxaparin 40 mg/0.4 mL Syringe SUBCUT (03:23)
[2021-03-28 04:56] LABS: Basophils % 0.1 %; Hematocrit 43.4 % (37.0-47.0); Hemoglobin 13.6 g/dL (11.5-15.3); Lymphocytes # 1.2 10^3/uL (0.8-4.8); Lymphocytes % 11.6 %; Mean Corpuscular HGB Conc 31.3 g/dL (30.0-36.0); Mean Corpuscular Hemoglobin 27.9 pg (28.0-34.0); Mean Corpuscular Volume 88.9 fL (81-99); Mean Platelet Volume 9.5 fL (7.4-10.4); Monocytes # 0.5 10^3/uL (0.2-0.9); Monocytes % 5.2 %; Neutrophils # 8.41 10^3/uL (1.8-7.7); Neutrophils % 82.6 %; Nucleated Red Blood Cells % 0 %; Platelet Count 230 10^3/cmm (130-400); Red Blood Count 4.88 10^6/uL (4.1-5.3); Red Cell Distribution Width 13.4 % (12.1-15.1); White Blood Count 10.2 10^3/uL (4.0-10.0)
[2021-03-28 05:17] LABS: Anion Gap 10.7 (5-19); Blood Urea Nitrogen 19 mg/dL (8-23); Calcium 8.3 mg/dL (8.5-10.5); Carbon Dioxide 35 mmol/L (22-29); Chloride 94 mmol/L (98-107); Glucose 155 mg/dL (65-115); Osmolality Calculated 287 mOsm/kg (285-295); Potassium 3.7 mmol/L (3.5-5.1); Sodium 136 mmol/L (136-145)
[2021-03-28] MEDS: amlodipine 10 mg Tablet PO (06:39)
[2021-03-28] MEDS: lisinopril 20 mg Tablet PO (06:39)
[2021-03-28] MEDS: FUROsemide 10 mg/mL SDV 4mL 20 MG IVP (06:41)
[2021-03-28] MEDS: acetaminophen 325 mg Tablet 650 MG PO (07:59)
[2021-03-28] MEDS: cefepime 1,000 MG in sodium chloride 0.9% (plus) 50 ML 100 MG IV (09:15)
[2021-03-28] MEDS: budesonide 0.5 mg/2 mL Neb INHALATION ×2 (09:16→20:46)
[2021-03-28] MEDS: metoprolol tartrate 25 mg Tablet PO ×2 (09:17→20:02)
[2021-03-28] MEDS: docusate sodium 100 mg Capsule PO ×2 (09:17→18:45)
[2021-03-28] MEDS: oxyCODONE-APAP 10-325 mg Tablet 1 TAB PO ×2 (11:23→20:03)
--- NOTE | 2021-03-28 11:30 | DCPLANNER ---
Pg 2 of IM updated and reviewed with pt. No questions, copy provided.
--- NOTE | 2021-03-28 17:01 | PM.PN ---
Subjective Subjective: Interval history: Patient feels better. Still having productive cough. Afebrile. Vitals/I&O/Wt Last Vital Signs Temp 97.9 F 03/28/21 15:44 Pulse 105 H 03/28/21 15:44 Resp 20 H 03/28/21 15:44 BP 143/85 03/28/21 15:44 Pulse Ox 97 03/28/21 15:44 03/28/21 03/28/21 03/28/21 06:59 14:59 22:59 Intake Total 1200 / 1200 Output Total 0 / 300 Balance 0 / 880 1200 / 1200 Weight last 48 hrs Weight 190 lb 1.6 oz Physical Exam Const: COMMON NORMALS: no acute distress and patient oriented x3 Neck/C-Spine: COMMON NORMALS: no JVD Resp: COMMON NORMALS: normal respiratory effort and No retractions AUSCULTATION: wheezes Cardio: COMMON NORMALS: no JVD and regular rate RATE: regular rate GI: COMMON NORMALS: Soft to palpation and non-tender PALPATION: Yes Soft to palpation Extremity: COMMON NORMALS: normal to inspection and full ROM Neuro: COMMON NORMALS: patient oriented x3 and CN's II-XII intact bilaterally Psych: ATTITUDE: Yes calm ACTIVITY/MOTOR BEHAVIOR: Yes appropriate eye contact Urinary Catheter Management^: Jama: Cath Placed During This Visit: yes, but has since been removed by the nurse Reason for Continuing Indwelling Catheter: Decision to DC Catheter Urinary Catheter Date of Insertion: 03/24/21 Urinary Catheter Time of Insertion: 03:20 Date Urinary Catheter Removed: 03/27/21 Time Urinary Catheter Discontinued: 15:00 Data : 03/28/21 04:35 03/28/21 04:35 Micro: Microbiology 03/28/21 00:10 Gram Stain - Final Sputum - Expectorated Sputum A&P Assessment and plan (1) Chronic steroid use: Status: Chronic (2) Acute exacerbation of chronic obstructive pulmonary disease: Status: Acute (3) On home oxygen therapy: Status: Chronic (4) 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 (5) Diastolic CHF: Status: Chronic Qualifiers: Heart failure chronicity: unspecified Qualified Code(s): I50.30 - Unspecified diastolic (congestive) heart failure (6) Lewy body dementia: Status: Chronic Qualifiers: Dementia behavioral disturbance: without behavioral disturbance Qualified Code(s): G31.83 - Dementia with Lewy bodies; F02.80 - Dementia in other diseases classified elsewhere without behavioral disturbance (7) Wolte-2-yhfmzpzgwfk deficiency: Status: Chronic Additional A&P Information #copd exacerbation #chronic oxygen use #chornic steroid use #lewy body dementia #sleep apnea plan: 1. Oxygen levels at baseline 2. BiPAP at night 3. continue albuterol, methylprednisolone, budesonide 4. Continue vancomycin, cefepime Attestations Medical Necessity Statement*: Blank Middleton's hospital stay will require greater than 2 midnights for copd Coding Level of Care Code Acute Clerical Dentist Assistant for g Fwd Diagnoses Chronic steroid use Acute exacerbation of chronic obstructive pulmonary disease J44.1 On home oxygen therapy Z99.81 BiPAP (biphasic positive airway pressure) dependence Z99.89 Diastolic CHF I50.30 Heart failure chronicity: unspecified Lewy body dementia G31.83; F02.80 Dementia behavioral disturbance: without behavioral disturbance Sbmkh-6-depfawxlrtg deficiency E88.01
[2021-03-28] MEDS: trazodone 100 mg Tablet PO (20:04)
[2021-03-28 21:24] LABS: Vancomycin Trough 11.9 ug/mL (10-15)
[2021-03-28] MEDS: vancomycin 1,000 MG in sodium chloride 0.9% 250 ML 200 MG IV (22:58)
[2021-03-29] VITALS (16 sets, daily range): BP systolic 125–156; BP diastolic 76–95; PULSE 67–89; RESP 16–21; TEMP 36.4–37.2; O2SAT 93–96
[2021-03-29] MEDS: enoxaparin 40 mg/0.4 mL Syringe SUBCUT (02:11)
[2021-03-29 06:11] LABS: Basophils % 0.1 %; Hematocrit 41.3 % (37.0-47.0); Hemoglobin 12.9 g/dL (11.5-15.3); Lymphocytes # 0.9 10^3/uL (0.8-4.8); Lymphocytes % 12.2 %; Mean Corpuscular HGB Conc 31.2 g/dL (30.0-36.0); Mean Corpuscular Volume 89.8 fL (81-99); Monocytes # 0.3 10^3/uL (0.2-0.9); Monocytes % 3.8 %; Neutrophils % 83.6 %; Nucleated Red Blood Cells % 0 %; Platelet Count 228 10^3/cmm (130-400); Red Cell Distribution Width 13.3 % (12.1-15.1); White Blood Count 7.7 10^3/uL (4.0-10.0)
[2021-03-29] MEDS: lisinopril 20 mg Tablet PO (06:14)
[2021-03-29] MEDS: amlodipine 10 mg Tablet PO (06:14)
[2021-03-29] MEDS: FUROsemide 10 mg/mL SDV 4mL 20 MG IVP (06:25)
[2021-03-29 06:28] LABS: Blood Urea Nitrogen 19 mg/dL (8-23); Calcium 8.1 mg/dL (8.5-10.5); Carbon Dioxide 37 mmol/L (22-29); Chloride 96 mmol/L (98-107); Glucose 158 mg/dL (65-115); Osmolality Calculated 292 mOsm/kg (285-295); Sodium 138 mmol/L (136-145)
[2021-03-29] MEDS: oxyCODONE-APAP 10-325 mg Tablet 1 TAB PO ×2 (07:05→17:32)
[2021-03-29] MEDS: metoprolol tartrate 25 mg Tablet PO ×2 (08:25→22:01)
[2021-03-29] MEDS: docusate sodium 100 mg Capsule PO ×2 (08:25→17:30)
[2021-03-29] MEDS: budesonide 0.5 mg/2 mL Neb INHALATION ×2 (09:01→20:42)
[2021-03-29] MEDS: vancomycin 1,000 MG in sodium chloride 0.9% 250 ML 250 MG IV ×2 (12:34→22:01)
--- NOTE | 2021-03-29 16:19 | PM.PN ---
Subjective Subjective: Interval history: feels about the same dry cough afebrile Medications: Reviewed: Yes Vitals/I&O/Wt Last Vital Signs Temp 98.9 F 03/29/21 12:00 Pulse 87 03/29/21 15:50 Resp 18 03/29/21 15:44 BP 133/84 03/29/21 12:00 Pulse Ox 96 03/29/21 15:44 03/29/21 03/29/21 03/29/21 06:59 14:59 22:59 Intake Total 730 / 2220 540 / 540 Output Total 700 / 700 950 / 950 Balance 30 / 1520 -410 / -410 Weight last 48 hrs Weight 177 lb 12.8 oz Weight 190 lb 1.6 oz Physical Exam Const: COMMON NORMALS: no acute distress and patient oriented x3 Resp: EFFORT & INSPECTION: Yes able to speak in complete sentences AUSCULTATION: wheezes Cardio: COMMON NORMALS: regular rate and regular rhythm RATE: regular rate RHYTHM: regular rhythm GI: COMMON NORMALS: Soft to palpation and non-tender PALPATION: Yes Soft to palpation Neuro: COMMON NORMALS: patient oriented x3 Psych: COMMON NORMALS: cooperative and normal affect ATTITUDE: Yes calm Skin: COMMON NORMALS: no rashes or lesions noted GENERAL SKIN EXAM: no rashes or lesions noted Urinary Catheter Management^: Jama: Cath Placed During This Visit: yes, but has since been removed by the nurse Reason for Continuing Indwelling Catheter: Decision to DC Catheter Urinary Catheter Date of Insertion: 03/24/21 Urinary Catheter Time of Insertion: 03:20 Date Urinary Catheter Removed: 03/27/21 Time Urinary Catheter Discontinued: 15:00 Data : 03/29/21 05:17 03/29/21 05:17 Micro: Microbiology 03/28/21 00:10 Gram Stain - Final Sputum - Expectorated Sputum Sputum Culture - Preliminary Gram Negative Rods 03/23/21 21:28 Blood Culture - Final Blood NO GROWTH AFTER 5 DAYS 03/23/21 21:32 Blood Culture - Final Blood NO GROWTH AFTER 5 DAYS A&P Assessment and plan (1) Acute exacerbation of chronic obstructive pulmonary disease: Status: Acute (2) Chronic steroid use: Status: Chronic (3) Hypertension: Status: Chronic Qualifiers: Hypertension type: essential hypertension Qualified Code(s): I10 - Essential (primary) hypertension (4) On home oxygen therapy: Status: Chronic (5) Lewy body dementia: Status: Chronic Qualifiers: Dementia behavioral disturbance: without behavioral disturbance Qualified Code(s): G31.83 - Dementia with Lewy bodies; F02.80 - Dementia in other diseases classified elsewhere without behavioral disturbance (6) Orcca-3-omzimradjay deficiency: Status: Chronic Additional A&P Information #copd exacerbation #chronic oxygen use #chornic steroid use #lewy body dementia #sleep apnea plan: 1. Oxygen levels at baseline 2. BiPAP at night 3. continue albuterol, methylprednisolone, budesonide 4. Continue vancomycin, cefepime Dispo: ok to DC when placement available Attestations Medical Necessity Statement*: Blank Middleton's hospital stay will require greater than 2 midnights for respiratory failure Coding Level of Care Code Acute Wastewater Technician for g Fwd Diagnoses Acute exacerbation of chronic obstructive pulmonary disease J44.1 Chronic steroid use Hypertension I10 Hypertension type: essential hypertension On home oxygen therapy Z99.81 Lewy body dementia G31.83; F02.80 Dementia behavioral disturbance: without behavioral disturbance Gcgvo-9-mulikpszzsi deficiency E88.01
[2021-03-29] MEDS: trazodone 100 mg Tablet PO (22:14)
[2021-03-30] VITALS (13 sets, daily range): BP systolic 145–169; BP diastolic 84–88; PULSE 62–94; RESP 14–20; TEMP 36.3–37; O2SAT 92–98
[2021-03-30] MEDS: enoxaparin 40 mg/0.4 mL Syringe SUBCUT (00:59)
[2021-03-30] MEDS: amlodipine 10 mg Tablet PO (05:19)
[2021-03-30] MEDS: lisinopril 20 mg Tablet PO (05:19)
[2021-03-30] MEDS: FUROsemide 10 mg/mL SDV 4mL 20 MG IVP (05:19)
[2021-03-30] MEDS: oxyCODONE-APAP 10-325 mg Tablet 1 TAB PO ×2 (05:29→14:50)
[2021-03-30 07:04] LABS: Basophils % 0.3 %; Hematocrit 44.7 % (37.0-47.0); Hemoglobin 12.9 g/dL (11.5-15.3); Lymphocytes # 0.9 10^3/uL (0.8-4.8); Lymphocytes % 9.8 %; Mean Corpuscular HGB Conc 28.9 g/dL (30.0-36.0); Mean Corpuscular Hemoglobin 28.2 pg (28.0-34.0); Mean Corpuscular Volume 97.8 fL (81-99); Mean Platelet Volume 9.6 fL (7.4-10.4); Monocytes # 0.4 10^3/uL (0.2-0.9); Monocytes % 4.1 %; Neutrophils # 8.06 10^3/uL (1.8-7.7); Neutrophils % 85.3 %; Nucleated Red Blood Cells % 0 %; Platelet Count 224 10^3/cmm (130-400); Red Blood Count 4.57 10^6/uL (4.1-5.3); Red Cell Distribution Width 13.5 % (12.1-15.1); White Blood Count 9.5 10^3/uL (4.0-10.0)
[2021-03-30 07:26] LABS: Anion Gap 9.3 (5-19); Blood Urea Nitrogen 23 mg/dL (8-23); Carbon Dioxide 36 mmol/L (22-29); Chloride 93 mmol/L (98-107); Glucose 154 mg/dL (65-115); Osmolality Calculated 285 mOsm/kg (285-295); Potassium 4.3 mmol/L (3.5-5.1); Sodium 134 mmol/L (136-145)
[2021-03-30] MEDS: metoprolol tartrate 25 mg Tablet PO (08:13)
[2021-03-30] MEDS: docusate sodium 100 mg Capsule PO (08:13)
[2021-03-30] MEDS: budesonide 0.5 mg/2 mL Neb INHALATION (08:16)
[2021-03-30 10:31] LABS: Vancomycin Trough 17.3 ug/mL (10-15)
[2021-03-30] MEDS: acetaminophen 325 mg Tablet 650 MG PO (11:07)
[2021-03-30] MEDS: vancomycin 1,000 MG in sodium chloride 0.9% 250 ML 250 MG IV (11:24)
[2021-03-30] MEDS: LORazepam 1 mg Tablet PO (11:25)
--- NOTE | 2021-03-30 12:03 | PC.SOCIAL ---
IMM update IMM update: Pg 2 of IM updated and reviewed with pt. No questions, copy provided.
--- NOTE | 2021-03-30 16:15 | P.DS_ITS ---
Discharge Providers Date of Admission: 03/23/21 21:05 Date of Discharge: March 30, 2021 Attending Provider at Admission: Adilia Cuevas MD Attending Provider at Discharge: Renee Camacho MD Primary Care Provider: Isaac Rebolledo MD Diagnoses at Discharge Discharge Diagnosis (1) Acute exacerbation of chronic obstructive pulmonary disease: Status: Acute (2) Chronic steroid use: Status: Chronic (3) Hypertension: Status: Chronic Qualifiers: Hypertension type: essential hypertension Qualified Code(s): I10 - Essential (primary) hypertension (4) On home oxygen therapy: Status: Chronic (5) Lewy body dementia: Status: Chronic Qualifiers: Dementia behavioral disturbance: without behavioral disturbance Qualified Code(s): G31.83 - Dementia with Lewy bodies; F02.80 - Dementia in other diseases classified elsewhere without behavioral disturbance (6) [id number] deficiency: Status: Chronic Reason for Visit Reason for Visit: on Levaquin/Dr Domingo 1 wk,now coughing up yellow Hospital Course Hospital Course Blank Middleton is a 80 year old female who presented to the emergency room with chief complaint of increasing sputum production and difficulty breathing. Symptoms have been going on for about a week. She follows with Dr. Domingo for alpha-1 antitrypsin deficiency/COPD. She gets Aralast weekly on . Chronically on albuterol, Symbicort and takes guaifenesin if needed. Sputum has been yellowish-brown in color. No blood has been noted. She denies any fever. She was prescribed Levaquin last week and has 3 doses left. Has not really seen a change since then. She is chronically on prednisone at 5 mg a day. No increased dose of steroids. She does not do well with higher doses of steroids and tries to avoid it if she can. Has not had significant headaches or facial pain. Not really having much in the way of nasal drainage. No sore throat. No loss of taste/smell. No nausea or vomiting. No diarrhea or abdominal pain. Denied any urinary symptoms. She is chronically on 6 L of oxygen by nasal cannula and wears a BiPAP every night. She has had to increase the oxygen to 8 L and has woken up at night short of breath a few times. She is getting more short of breath with exertion. Denied any new edema. Her son encouraged her to come to the emergency room today for evaluation. ABG showed respiratory acidosis with hypercapnia more pronounced than it has been in some time for her. She was placed on BiPAP, given a dose of Solu-Medrol and breathing treatment. Chest x-ray showed patchy opacity in the right midlung described by radiology as could represent pneumonia and/or atelectasis . She was covered with Rocephin and azithromycin and request was made for admission. Patient states that she has not had this much trouble breathing for some time. Her last hospitalization was back in 2018. She has previously had prolonged intubation necessitating tracheostomy that was later removed. In talking with her she had Covid in November of last year. Did not require hospitalization at that time. She is not vaccinated. She at first denied any contact with anybody who has had Covid but on further specific questioning, grandson does have Covid currently, as well as a another family member. The grandson himself has not seen Mrs. Fonseca, but several family members who have been around him have been around her. Rapid Covid antigen was negative. She did have some mild elevation in transaminases, a baseline troponin of 18 without acute EKG changes, a proBNP of 509. No history of coronary artery disease though does have some records indicating a history of diastolic CHF. Hospital course: The patient was admitted for COPD exacerbation. She had some improvement. Her oxygen requirements were close to baseline. She tolerated antibiotics. She was given steroids. She tested negative for Covid. Her vitals also had improved. Chronic medications including heart failure hypertension medication were continued. She also used her BiPAP at night for her obstructive sleep apnea. Physical Exam Const: COMMON NORMALS: no acute distress Resp: COMMON NORMALS: normal respiratory effort and No retractions EFFORT & INSPECTION: Yes able to speak in complete sentences, No grunting and No stridor Cardio: COMMON NORMALS: regular rate and regular rhythm RATE: regular rate RHYTHM: regular rhythm GI: COMMON NORMALS: Soft to palpation and non-tender PALPATION: Yes Soft to palpation Psych: COMMON NORMALS: mental status grossly normal and Normal thought process present THOUGHT PROCESS: Normal thought process present Urinary Catheter Management^: [place]: Cath Placed During This Visit: yes, but has since been removed by the nurse Reason for Continuing Indwelling Catheter: Decision to DC Catheter Urinary Catheter Date of Insertion: 03/24/21 Urinary Catheter Time of Insertion: 03:20 Date Urinary Catheter Removed: 03/27/21 Time Urinary Catheter Discontinued: 15:00 Discharge Data Data Completed and Pending: Completed Studies During Hospitalization Category Date Time Status XR chest 1V jenny ble [id number] Routine Exams 03/26/21 06:00 Completed XR chest 1V jenny ble [id number] Urgent Exams 03/23/21 16:31 Completed CV. echo complete * [id number] Routine Ultrasound 03/24/21 06:00 Completed Pending at discharge Category Date Time Status Sputum Culture an d Gram Stain Routi ne Lab 03/24/21 08:47 Results Labs from last 24 hours 03/30/21 03/30/21 03/30/21 09:25 05:15 05:15 WBC 9.5 RBC 4.57 Hgb 12.9 Hct 44.7 MCV 97.8 D MCH 28.2 MCHC 28.9 L D RDW 13.5 Plt Count 224 MPV 9.6 Neut % (Auto) 85.3 Lymph % (Auto) 9.8 [place] % (Auto) 4.1 Eos % (Auto) 0.0 Baso % (Auto) 0.3 Neut # (Auto) 8.06 H Lymph # (Auto) 0.9 [place] # (Auto) 0.4 Eos # (Auto) 0.0 Baso # (Auto) 0.0 Nucleated RBC % (a uto) 0 Nucleated RBCs # 0.0 Sodium 134 L Potassium 4.3 Chloride 93 L Carbon Dioxide 36 H Anion Gap 9.3 BUN 23 Creatinine 0.5 GFR Calculation Not Reportable Glucose 154 H Calculated Osmolal ity 285 Calcium 8.0 L Vancomycin Trough 17.3 H Vitals: Last Vital Signs Temp 98.6 F 03/30/21 12:19 Pulse 90 03/30/21 15:40 Resp 18 03/30/21 15:03 BP 159/88 03/30/21 12:19 Pulse Ox 95 03/30/21 15:03 Discharge Plan Discharge Patient Disposition: Home Condition: Stable Prescriptions: New prednisone 10 mg tablet 10 mg PO Q12H Qty: 60 RF: 0 Continued furosemide [Lasix] 20 mg tablet 20 mg PO DAILY PRN (Reason: Edema) RF: 0 galantamine 4 mg tablet 4 mg PO BID Qty: 60 RF: 0 alendronate 70 mg tablet 70 mg PO Q7D RF: 0 trazodone 100 mg tablet 100 mg PO BEDTIME PRN (Reason: Sleep) RF: 0 amlodipine 10 mg tablet 10 mg PO QAM RF: 0 metoprolol tartrate 50 mg tablet 50 mg PO QAM RF: 0 benazepril 20 mg tablet 20 mg PO QAM RF: 0 albuterol sulfate [ProAir HFA] 90 mcg/actuation Hfa Aerosol Inhaler 2 puff INHALATION Q4H PRN (Reason: Shortness Of Breath) RF: 0 oxycodone-acetaminophen [Percocet] 10-325 mg tablet 1 - 2 tab PO Q6H PRN (Reason: pain) RF: 0 potassium chloride 10 mEq capsule, extended release 10 meq PO DAILY PRN (Reason: WHEN TAKING LASIX) RF: 0 albuterol sulfate 2.5 mg /3 mL (0.083 %) Solution For Nebulization 2.5 mg inhalation TID PRN (Reason: Shortness Of Breath) RF: 0 Aralast COOKING SHOW HOST 1,000 mg recon soln See Rx Instructions .ROUTE .COMPLEX RF: 0 Symbicort 160-4.5 mcg/actuation HFA aerosol inhaler 2 puff INHALATION BID RF: 0 Mucinex 600 mg Tablet Extended Release 12hr 600 mg PO QAM PRN (Reason: Congestion) RF: 0 galantamine 12 mg tablet 12 mg PO BID RF: 0 galantamine 8 mg tablet 8 mg PO BID RF: 0 Discontinued prednisone 5 mg tablet 5 mg PO QAM RF: 0 levofloxacin 500 mg tablet 500 mg PO DAILY RF: 0 Discharge Orders: Discharge Order (Routine); Ordered 03/30/21 Ordered By: Renee Camacho Referrals: Isaac Rebolledo MD [Primary Care Provider] - 04/05/21 10:15 am Discharge Diet: Regular Discharge Activity: Resume usual activity Patient Instructions: Prednisone (By mouth), Using Oxygen at Home (GEN), Chronic Obstructive Pulmonary Disease (GEN), COPD Stoplight, Opioid Safety Discharge Attestations Time Spent in Discharge Care*: less than 30 min Specific Discharge Activities: educating patient Quality Metrics Clinical Quality Measures During this hospital stay, did patient experience: None Coding Level of Care Code Acute Chg FW DC note Diagnoses Acute exacerbation of chronic obstructive pulmonary disease J44.1 Chronic steroid use Hypertension I10 Hypertension type: essential hypertension On home oxygen therapy Z99.81 Lewy body dementia G31.83; F02.80 Dementia behavioral disturbance: without behavioral disturbance [id number] deficiency E88.01
== END 2021-03-30 15:15 | disposition home or self-care (01) | DRG 190 ==
LOC: ER 16:15 → MEDSURG 21:30
PROVIDERS: Internal Medicine; Admitting Provider Hospitalist; Emergency Provider Family Medicine; PCP Family Medicine; Visit Provider Internal Medicine
DX: J44.1 Chronic obstructive pulmonary disease with (acute) exacerbation (principal); J18.9 Pneumonia, unspecified organism; E87.2 Acidosis; I50.32 Chronic diastolic (congestive) heart failure; J44.0 Chronic obstructive pulmonary disease with (acute) lower respiratory infection; E88.01 Alpha-1-antitrypsin deficiency; Z79.899 Other long term (current) drug therapy; Z79.52 Long term (current) use of systemic steroids; Z99.81 Dependence on supplemental oxygen; I11.0 Hypertensive heart disease with heart failure; F32.9 Major depressive disorder, single episode, unspecified; Z86.16 Personal history of COVID-19; G31.83 Neurocognitive disorder with Lewy bodies; F02.80 Dementia in other diseases classified elsewhere, unspecified severity, without behavioral disturbance, psychotic disturbance, mood disturbance, and anxiety; E66.9 Obesity, unspecified; Z68.32 Body mass index [BMI] 32.0-32.9, adult; M81.0 Age-related osteoporosis without current pathological fracture; G47.33 Obstructive sleep apnea (adult) (pediatric); J84.10 Pulmonary fibrosis, unspecified; B95.62 Methicillin resistant Staphylococcus aureus infection as the cause of diseases classified elsewhere; Z79.51 Long term (current) use of inhaled steroids
CPT/HCPCS: 36415; 36600; 51702; 71045; 80048; 80053; 80202; 81003; 82274; 82728; 82805; 83605; 83735; 83880; 84100; 84145; 84484; 85025; 85378; 85384; 85610; 86140; 86403; 87040; 87070; 87077; 87186; 87205; 87426; 87449; 87635; 87641; 93005; 93306; 94640; 94660; 94664; 96365; 96367; 96372; 96375; 97110; 97116; 97161; 97530; 99291; J0456; J0692; J0696; J1650; J1940; J2920; J2930; J3370; J7050; J7512; J7611; J7626